=== PATIENT | male | born 1990 | race Caucasian/White ===

== ENCOUNTER 2020-08-24 11:09 | Emergency (ER) | payer MEDICAID, SELFPAY ==
[2020-08-24 11:23] VITALS: BP 151/108; PULSE 116; RESP 18; TEMP 36.7; O2SAT 95; BMI 36.9
--- NOTE | 2020-08-24 11:42 | HMH.EDUTC ---
[facility] [place] Clinical Impression: Bronchitis Sinusitis Qualifiers: Sinusitis location: unspecified location Chronicity: unspecified Qualified Code(s): J32.9 - Chronic sinusitis, unspecified Disposition: Home, Self-Care Condition on Discharge: Good Instructions: Sore Throat, Sinusitis, DI for Sinusitis Additional Instructions: *Monitor Temp, Over the counter Motrin or Tylenol as directed/as needed Tylenol every 4 hours and Motrin every 6 hours (as long as your family doctor has told you that you can take it) for fever or pain. and straight to ER if unable to lower temp less than 101.0 after medication given *Warm salt water gargles may help to soothe the throat *Throat Lozenges *Warm fluids like tea with honey may help to soothe the throat *Sleep elevated *Humidifier/Vaporizer *Flonase 2 sprays in each nostril daily but be aware that it may take 2-3 days before you notice improvement Follow up IMMEDIATELY for new or worsening symptoms or no Noticeable improvement over the next 48-72 hours. 911 for difficulty breathing or swallowing You blood pressure was elevated in [facility] you need to make appointment with your PCP as discussed for further evaluation and treatment Prescriptions: Fluticasone Propionate [Flonase 50mcg nasal spray 16gm] 1 spr NS DAILY #1 bottle Transmission Status: Received by [facility] Azithromycin [Z-Westley 250mg Tab] 250 mg PO DIRECTED #6 tab Transmission Status: Received by [facility] Referrals: Kimani Tavarez MD [Primary Care Provider] - As needed Time of Disposition: 11:47 Medical Decision Making - Paddy Inquiry Pt receiving controlled substance: No Paddy was queried for this patient: No Vital Signs: 08/24/20 11:23 08/24/20 11:56 Temperature 98.1 F 98.1 F Temperature Source Oral Oral Pulse Rate 116 H Pulse Rate [Radial] 116 H Respiratory Rate 18 18 Blood Pressure 151/108 H Blood Pressure [Right Arm] 151/108 H Blood Pressure Mean [Right Arm] 122 Blood Pressure Source Automatic Cuff Blood Pressure Source [Right Arm] Automatic Cuff Blood Pressure Position Sitting Blood Pressure Position [Right Arm] Sitting 02 Sat by Pulse Oximetry 95 Oxygen Delivery Method Room Air Room Air [facility] [place] - General Stated complaint: cough, congestion Time Seen by Provider: 08/24/20 11:43 Mode of Arrival: Ambulatory Source of Information: Patient Limitations: No Limitations Description of Symptoms (Recalled from Triage Doc. by RN): CHEST CONGESTION, COUGH, RUNNY NOSE HEENT Symptoms (Recalled from RN notes): Yes Resp Symptoms (Recalled from RN notes): No Skin Symptoms (Recalled from RN notes): No MS Symptoms (Recalled from RN notes): No Functional Status (Recalled from RN notes): WNL - History of Present Illness Provider Complaint: Patient states that he has been having sore throat, cough, sinus congestion and pressure and feels like it is trying to move into his chest States that he is an everyday smoker and has had bronchitits before and feels like it did when he had it before - Related Data Previous Rx's Medication Instructions Recorded Nabumetone 500 mg PO BID 30 Days #60 tab 04/19/18 predniSONE [Prednisone 10mg Tab 10 mg PO UD DOSE PK 6 Days #1 pack 04/19/18 Dose-Pack] predniSONE [Prednisone 50mg Tab] 50 mg PO DAILY 5 Days #5 tab 08/28/19 Tizanidine HCl [Tizanidine HCl 2 mg PO TID PRN 7 Days #20 tab 08/29/19 2mg] Azithromycin [Z-Westley 250mg Tab] 250 mg PO DIRECTED #6 tab 08/24/20 Fluticasone Propionate [Flonase 1 spr NS DAILY #1 bottle 08/24/20 50mcg nasal spray 16gm] Allergies Allergy/AdvReac Type Severity Reaction Status Date / Time Penicillins [PENICILLINS] Allergy Unknown Verified 08/28/19 21:25 - Worker's Comp Is this a Worker's Comp case?: No [facility] History - Hepatitis A Screen Drug use history?: No High risk sexual behaviors?: No History of sexually transmitted infection?: No Currently employed?: No [employer]
[2020-08-24 11:56] VITALS: BP 151/108; PULSE 116; RESP 18; TEMP 36.7; O2SAT 95
== END 2020-08-24 11:57 | disposition home or self-care (01) ==
PROVIDERS: Emergency Provider Nurse Practitioner; PCP Emergency Medicine
DX: J20.9 Acute bronchitis, unspecified (principal); J32.9 Chronic sinusitis, unspecified; F17.210 Nicotine dependence, cigarettes, uncomplicated; Z88.0 Allergy status to penicillin
CPT/HCPCS: 99201

== ENCOUNTER 2021-01-10 14:49 | Emergency (ER) | payer MEDICAID, SELFPAY ==
[2021-01-10 14:50] VITALS: BP 170/96; PULSE 129; RESP 16; O2SAT 94; BMI 43.0
--- NOTE | 2021-01-10 15:09 | XR_ITS ---
PROCEDURE: XR CHEST 2V CLINICAL HISTORY: COUGH COMPARISON: CR CXR CHEST(2 VIEWS-NOT PORTABLE) from 12/12/2015 FINDINGS: The cardiomediastinal silhouette and pulmonary vascularity are within normal limits. Patchy density is present in the right upper lobe overlying the 3rd rib anteriorly consistent with an area infiltrate. The remaining lungs are clear. No effusions. No evidence of pneumothorax. No acute bony abnormalities. IMPRESSION: Small area of pneumonia in the right upper lobe. Suggest follow-up until clear. Dictated by: Sunil Vázquez MD 01/10/2021 15:26 Sunil Vázquez MD in [place] 01/10/2021 15:26
--- NOTE | 2021-01-10 15:49 | HMH.EDUTC ---
[facility] [place] Disposition Clinical Impression: Pneumonia Qualifiers: Pneumonia type: due to unspecified organism Laterality: right Lung location: upper lobe of lung Qualified Code(s): J18.9 - Pneumonia, unspecified organism Disposition: Home, Self-Care Condition on Discharge: Good Instructions: Pneumonia-Adult, DI for Pneumonia -- Adult, Prednisone, Albuterol Oral Inhalation, Guaifenesin, Azithromycin Additional Instructions: ? Start antibiotic today. Be sure to complete entire prescription even if feeling better ? Monitor temp. Tylenol every 4 hours as needed and / or ibuprofen every 6 hours as needed ( As long as your primary care physician has told you that it ok to take both. For fever/aches/pains ER if no less than 101 despite Tylenol or Motrin ? Humidifier/vaporizer or hot steamy shower ? Inhaler every 4-6 hours as needed like we discussed. If unsure how to use it, ask pharmacist to demonstrate how. Should help open airways and improve cough, wheezing, and shortness of breath ? Mucinex during the day for your cough and cough suppressant only at night. Be sure to drink lots of water. Insurance may not cover a prescriptions for mucinex. Might be cheaper to get 400mg tablets and take 2 tablet in the morning, mid-day and evening with lots of water. *Start steroid tomorrow. Helps with inflammation therefore, cough and wheezing. Follow directions on the package. Reviewed side effects. Patient reports taking them before. Straight to ER if any worsening of shortness of breath or life threatening symptoms You need to follow up with your Family Doctor in 2 weeks or sooner if no improvement for re-evaluation to make sure that Pneumonia is clearing, if you do not have a Family Doctor you was provided with a list of Physicians that is accepting patients and you need to choose one and make appointment you also a Family doctor for further evaluation and treatment of your blood pressure being elevated also Follow up IMMEDIATELY for new or worsening of symptoms OR no noticeable improvement over the next 48-72 hours. 911 immediately for any life threatening symptoms such as chest pain or difficulty breathing Prescriptions: Albuterol Sulfate [Proventil-HFA 90mcg/puff Inh] 1 - 2 puffs IH Q4HP PRN #1 inh PRN Reason: Shortness Of Breath Transmission Status: Pending to [facility] predniSONE [Deltasone 10mg tablet] 10 mg PO BID 5 Days #10 tab Transmission Status: Pending to [facility] guaiFENesin [Mucinex 600mg tablet] 1 - 2 tab PO Q12H PRN #20 tab.er.12h PRN Reason: Congestion Transmission Status: Pending to [facility] Azithromycin [Z-Westley 250mg Tab] 250 mg PO DIRECTED #6 tab Transmission Status: Pending to [facility] Referrals: PCP,No [Primary Care Provider] - As needed Forms: Work/School Release Time of Disposition: 16:08 Medical Decision Making - Paddy Inquiry Pt receiving controlled substance: No Paddy was queried for this patient: No Vital Signs: 01/10/21 14:50 Pulse Rate [Right Brachial] 129 H Respiratory Rate 16 Blood Pressure [Right Arm] 170/96 H Blood Pressure Mean [Right Arm] 120 Blood Pressure Source [Right Arm] Automatic Cuff Blood Pressure Position [Right Arm] Sitting 02 Sat by Pulse Oximetry 94 L Oxygen Delivery Method Room Air Orders (Tests/Meds): ED MEDICATIONS Discontinued Medications Generic Name Dose Route Start Last Admin Trade Name Freq PRN Reason Stop Dose Admin Methylprednisolone Sodium Succinate 125 mg 01/10/21 15:50 01/10/21 15:55 Methylprednisolone Sod Succ 125mg Vial IM 01/10/21 15:51 125 mg ONCE ONE Administration - Radiology Data #1 Image(s): Chest Image Reviewed: Yes I have reviewed radiologist's interpretation Small area of pneumonia in the right upper lobe. Suggest follow-up until clear [facility] [place] HPI - General Stated complaint: cold Time Seen by Provider: 01/10/21 15:50 Mode of Arrival: Ambulatory Source of Information:
[2021-01-10 16:09] VITALS: BP 165/90; PULSE 102; TEMP 36.9; O2SAT 95
[2021-01-10 16:10] VITALS: BP 165/90; PULSE 102; RESP 16; TEMP 36.9; O2SAT 95
== END 2021-01-10 16:17 | disposition home or self-care (01) ==
PROVIDERS: Emergency Provider Nurse Practitioner
DX: J18.9 Pneumonia, unspecified organism (principal); J45.909 Unspecified asthma, uncomplicated; F17.210 Nicotine dependence, cigarettes, uncomplicated
CPT/HCPCS: 71046; 96372; 99202; G0463

== ENCOUNTER → 2021-02-14 13:48 | Outpatient (CLI) | payer MEDICAID, SELFPAY ==
[2021-02-14 14:26] LABS: Basophils # 0.1 K/mm3 (0-0.2); Basophils % 1.1 % (0.1-2.0); Eosinophils # 0.3 K/mm3 (0.0-0.4); Eosinophils % 2.9 % (0.1-12.0); Hematocrit 44.7 % (42.0-52.0); Hemoglobin 14.4 g/dL (14.1-18.0); Lymphocytes # 2.4 K/mm3 (0.7-4.5); Lymphocytes % 23.4 % (10-50); Mean Corpuscular HGB Conc 32.2 g/dL (31.8-35.4); Mean Corpuscular Hemoglobin 28.6 pg (27.0-31.2); Mean Corpuscular Volume 88.9 fl (80-94); Mean Platelet Volume 8.1 fl (7.4-10.4); Monocytes # 0.4 K/mm3 (0.1-1.0); Monocytes % 3.9 % (1.7-9.3); Neutrophils # 7.1 K/mm3 (1.8-7.8); Neutrophils % 68.8 % (37.0-80.0); Platelet Count 359 K/mm3 (142-424); Red Blood Count 5.03 M/mm3 (4.60-6.20); White Blood Count 10.3 K/mm3 (4.8-10.8)
[2021-02-14 16:07] LABS: 25-OH Vitamin D, Total < 12.8 ng/mL (30-100); Blood Urea Nitrogen 8 mg/dl (9-20); Estimated Glomerular Filt Rate 71 ml/min (>60); GFR (African American) 85 ML/MIN (>60)
[2021-02-14 16:08] LABS: Alanine Aminotransferase 34 U/L (12-78); Albumin Level 3.7 g/dl (3.5-5.0); Albumin/Globulin Ratio 1.3 (1.1-1.8); Alkaline Phosphatase 96 U/L (38-126); Aspartate Amino Transferase 33 U/L (17-59); Bilirubin,Total 0.4 mg/dl (0.2-1.3); Calcium 8.8 mg/dl (8.4-10.2); Carbon Dioxide 20 mmol/L (22.0-30.0); Cholesterol 238 mg/dl (140-200); Globulin 2.8 g/dL (1.3-3.2); Glucose 370 mg/dl (74-100); Total Protein,Serum 6.5 g/dl (6.3-8.2)
[2021-02-14 16:09] LABS: Chol/HDL Ratio 9.2 (1-3.5); HDL Cholesterol 26 mg/dl (40-60)
[2021-02-14 16:10] LABS: Anion Gap 18.3 mEq/L (5-15); Chloride 101 mmol/L (98-107); Potassium 4.3 mmoL/L (3.5-5.1); Sodium 135 mmol/L (136-145)
[2021-02-14 16:19] LABS: Direct LDL Cholesterol 41.56 mg/dL (100-129); Triglycerides 1360 mg/dl (30-150)
[2021-02-14 16:29] LABS: T4 (Thyroxine) 6.2 ug/dl (5.53-11.0)
[2021-02-14 16:41] LABS: Thyroid Stimulating Hormone 2.07 uIU/mL (0.465-4.68)
== END ==
PROVIDERS: Visit Provider Nurse Practitioner Family
DX: I10 Essential (primary) hypertension (principal); R42 Dizziness and giddiness; R51.9 Headache, unspecified; E55.9 Vitamin D deficiency, unspecified; J45.20 Mild intermittent asthma, uncomplicated
CPT/HCPCS: 80053; 80061; 82306; 83036; 84436; 84443; 85025

== ENCOUNTER 2021-04-30 14:06 | Emergency (ER) | payer MEDICAID, SELFPAY ==
[2021-04-30 14:14] VITALS: BP 165/77; PULSE 110; RESP 18; TEMP 36.8; O2SAT 98; BMI 39.3
[2021-04-30 14:51] VITALS: BP 165/77; PULSE 109; RESP 16; TEMP 36.8
--- NOTE | 2021-04-30 15:22 | HMH.EDUTC ---
[facility] [place]ression: Right foot pain Right ankle pain Qualifiers: Chronicity: acute Qualified Code(s): M25.571 - Pain in right ankle and joints of right foot Disposition: Home, Self-Care Condition on Discharge: Good Instructions: Gout, DI for Gout Additional Instructions: Rest the extremity, apply ice for 15 minutes as tolerated three or four times per day, Wear the reyna wrap for compression, Elevate the extremity as tolerated while you are resting. Follow up with Dr. Man (podiatry). I put in a referral but you need to call his office and schedule an appointment. Follow up with your regular doctor. GO TO THE ER FOR ANY WORSENING SYMPTOMS Prescriptions: cephALEXin [cephALEXin 500mg capsule] 500 mg PO Q6H 10 Days #40 cap Transmission Status: Received by [facility] predniSONE [Prednisone 20mg Tab] 20 mg PO BID 4 Days #8 tab Transmission Status: Received by [facility] Referrals: Kimani Tavarez MD [Primary Care Provider] - Shayla Man DPM [Staff Physician] - Time of Disposition: 15:35 Medical Decision Making - Medical Records Medical records reviewed: No: I reviewed the patient's medical records. - Paddy Inquiry Pt receiving controlled substance: No Vital Signs: 04/30/21 14:14 04/30/21 14:51 Temperature 98.2 F 98.2 F Temperature Source Oral Pulse Rate 109 H Pulse Rate [Right] 110 H Respiratory Rate 18 16 Blood Pressure 165/77 H Blood Pressure [Right Arm] 165/77 H Blood Pressure Mean [Right Arm] 106 Blood Pressure Source [Right Arm] Automatic Cuff Blood Pressure Position [Right Arm] Sitting 02 Sat by Pulse Oximetry 98 Oxygen Delivery Method Room Air Orders (Tests/Meds): ED MEDICATIONS Discontinued Medications Generic Name Dose Route Start Last Admin Trade Name Freq PRN Reason Stop Dose Admin Ketorolac Tromethamine 60 mg 04/30/21 14:42 04/30/21 14:50 Ketorolac 60mg/2ml Vial IM 04/30/21 14:43 60 mg ONCE ONE Administration Methylprednisolone Sodium Succinate 60 mg 04/30/21 14:44 04/30/21 14:50 Methylprednisolone Sod Succ 125mg Vial IM 04/30/21 14:45 60 mg ONCE ONE Administration Medical Decision Narrative: He refused an x-ray and lab work. He states that he has a history of gout and this feels like his gout symptoms flaring up. [facility] [place] General Stated complaint: rt ankle pain, swollen Time Seen by Provider: 04/30/21 15:23 Mode of Arrival: Wheelchair Source of Information: Patient Limitations: No Limitations Description of Symptoms (Recalled from Triage Doc. by RN): pt states, I think I have gout I have really bad constant pain in my R rob and top of my foot. pain is 10/10. non injury noted. HEENT Symptoms (Recalled from RN notes): No Resp Symptoms (Recalled from RN notes): No Skin Symptoms (Recalled from RN notes): No MS Symptoms (Recalled from RN notes): Yes (R ankle and foot pain. no injury) Functional Status (Recalled from RN notes): na - History of Present Illness Provider Complaint: He c/o right ankle pain for the past 2 days. He denies any injury. He does have a history of getting what he describes as gout, but he has never been officially diagnosed with gout. He denies any other joint pain or discomfort. He denies any fever or chills. - Related Data Previous Rx's Medication Instructions Recorded aspirin 81 mg tablet,delayed 81 mg PO DAILY #30 tab 02/19/21 release atorvastatin 20 mg tablet 20 mg PO DAILY #30 tab 02/19/21 blood sugar diagnostic See Rx Instructions .ROUTE 02/19/21 .MEDSUPPLY #100 each blood-glucose meter See Rx Instructions .ROUTE 02/19/21 .MEDSUPPLY #1 each cholecalciferol (vitamin D3) 1,250 1,250 mcg PO WEEKLY #7 tab 02/19/21 mcg (50,000 unit) tablet cholecalciferol (vitamin D3) 50 50 mcg PO DAILY 30 Days #30 cap 02/19/21 mcg (2,000 unit) capsule lancets 30 gauge and blood glucose See Rx Instructions .ROUTE 02/19/21 strips combo pack .MEDSUPPL
== END 2021-04-30 15:47 | disposition home or self-care (01) ==
PROVIDERS: Emergency Provider Nurse Practitioner Family; PCP Emergency Medicine
DX: M10.071 Idiopathic gout, right ankle and foot (principal); M25.571 Pain in right ankle and joints of right foot; E11.9 Type 2 diabetes mellitus without complications; I10 Essential (primary) hypertension; Z88.0 Allergy status to penicillin
CPT/HCPCS: 96372; 99202; G0463

== ENCOUNTER 2021-05-23 18:42 | Emergency (ER) | payer MEDICAID, SELFPAY ==
[2021-05-23 19:27] VITALS: BP 123/83; PULSE 121; RESP 20; TEMP 36.8; O2SAT 95; BMI 36.9
[2021-05-23 20:10] VITALS: BP 135/84; PULSE 119; RESP 18; TEMP 36.8; O2SAT 97; BMI 38.4
[2021-05-23 20:32] LABS: Basophils # 0.1 K/mm3 (0-0.2); Basophils % 0.9 % (0.1-2.0); Eosinophils # 0.3 K/mm3 (0.0-0.4); Eosinophils % 2.3 % (0.1-12.0); Hemoglobin 13.1 g/dL (14.1-18.0); Lymphocytes % 20.7 % (10-50); Mean Corpuscular HGB Conc 34.6 g/dL (31.8-35.4); Mean Corpuscular Hemoglobin 29.1 pg (27.0-31.2); Mean Corpuscular Volume 84.1 fl (80-94); Mean Platelet Volume 7.3 fl (7.4-10.4); Monocytes # 0.5 K/mm3 (0.1-1.0); Monocytes % 3.2 % (1.7-9.3); Neutrophils # 10.5 K/mm3 (1.8-7.8); Platelet Count 426 K/mm3 (142-424); Red Blood Count 4.52 M/mm3 (4.60-6.20); Red Cell Distribution Width 14.2 % (11.5-17.5); White Blood Count 14.4 K/mm3 (4.8-10.8)
[2021-05-23 20:49] LABS: Alanine Aminotransferase 28 U/L (12-78); Albumin Level 4.3 g/dl (3.5-5.0); Albumin/Globulin Ratio 1.3 (1.1-1.8); Alkaline Phosphatase 74 U/L (38-126); Anion Gap 14.6 mEq/L (5-15); Aspartate Amino Transferase 27 U/L (17-59); Bilirubin,Total 0.4 mg/dl (0.2-1.3); Blood Urea Nitrogen 14 mg/dl (9-20); Calcium 9.1 mg/dl (8.4-10.2); Carbon Dioxide 29 mmol/L (22.0-30.0); Chloride 99 mmol/L (98-107); Creatinine Clearance Estimated 118 mL/min (50-200); Estimated Glomerular Filt Rate 54 ml/min (>60); GFR (African American) 66 ML/MIN (>60); Globulin 3.3 g/dL (1.3-3.2); Glucose 193 mg/dl (74-100); Potassium 3.6 mmoL/L (3.5-5.1); Sodium 139 mmol/L (136-145); Total Protein,Serum 7.6 g/dl (6.3-8.2)
[2021-05-23 20:55] LABS: C-Reactive Protein 43.1 mg/L (0-4)
[2021-05-23 21:08] LABS: Procalcitonin 0.171 ng/mL (0.0-2.0)
[2021-05-23 21:19] LABS: Lactic Acid 1.5 mmol/L (0.7-2.1)
[2021-05-23 21:25] LABS: Erythrocyte Sedimentation Rate > 140 mm/hr (0-15)
--- NOTE | 2021-05-23 21:55 | HMH.EDSKAF ---
ED Disposition Clinical Impression: Abscess of skin or subcutaneous tissue Qualifiers: Site of cutaneous abscess: extremity Site of cutaneous abscess of extremity: lower extremity Laterality: left Qualified Code(s): L02.416 - Cutaneous abscess of left lower limb Disposition: Home, Self-Care Condition on Discharge: Good Instructions: DI for Skin Abscess Additional Instructions: warm compresses and use meds Prescriptions: clindamycin HCL [Clindamycin HCl] 300 mg PO TID #30 cap Transmission Status: Pending to [facility] levoFLOXacin [Levaquin 500mg tab] 500 mg PO DAILY #7 tab Transmission Status: Pending to [facility] Referrals: Kimani Tavarez MD [Primary Care Provider] - - Critical Care Critical Care Time: No Attestation: On 05/23/21, the high probability of a clinically significant, sudden or life threatening deterioration of the following system(s) required my full and direct attention, intervention and personal management. The time I documented below is in addition to time spent performing reported procedures but includes the following listed in this critical care notation. Medical Decision Making - Medical Records Medical records reviewed: Yes: I reviewed the patient's medical records. - Paddy Inquiry Pt receiving controlled substance: No Vital Signs: 05/23/21 19:27 05/23/21 20:10 Temperature 98.3 F 98.3 F Temperature Source Oral Oral Pulse Rate [Left] 121 H 119 H Respiratory Rate 20 18 Blood Pressure [Right Arm] 123/83 135/84 Blood Pressure Mean [Right Arm] 96 101 02 Sat by Pulse Oximetry 95 97 Oxygen Delivery Method Room Air - Lab Data Lab results reviewed: Yes: I reviewed the patient's lab results. Lab Results 05/23/21 20:14: WBC 14.4 H, RBC 4.52 L, Hgb 13.1 L, Hct 38.0 L, MCV 84.1, MCH 29.1, MCHC 34.6, RDW 14.2, Plt Count 426 H, MPV 7.3 L, Neut % (Auto) 73.0, Lymph % (Auto) 20.7, [place] % (Auto) 3.2, Eos % (Auto) 2.3, Baso % (Auto) 0.9, Neut # (Auto) 10.5 H, Lymph # (Auto) 3.0, [place] # (Auto) 0.5, Eos # (Auto) 0.3, Baso # (Auto) 0.1, ESR > 140 H 05/23/21 20:14: Sodium 139, Potassium 3.6, Chloride 99, Carbon Dioxide 29, Anion Gap 14.6, BUN 14, Creatinine 1.50 H, Estimated Creat Clear 118, Estimated GFR 54 L, Est GFR ( Amer) 66, Glucose 193 H, Calcium 9.1, Total Bilirubin 0.4, AST 27, ALT 28, Alkaline Phosphatase 74, C-Reactive Protein 43.1 H, Total Protein 7.6, Albumin 4.3, Globulin 3.3 H, Albumin/Globulin Ratio 1.3, Procalcitonin 0.171 05/23/21 21:00: Lactate 1.5 Result diagrams: 05/23/21 20:14 05/23/21 20:14 Orders (Tests/Meds): ORDERS Category Date Time Status Rapid PCR Covid and Flu A/B Stat Lab 05/23/21 20:53 Ordered Blood Culture Stat Micro 05/23/21 21:00 Received Wound Culture and Gram Stain Stat Micro 05/23/21 20:17 Ordered Medical Decision Narrative: pt declined admit at this time for abscess lt post thigh Skin/Abscess/FB HPI - General Chief complaint: Skin/Abscess/Foreign Body Stated complaint: possible bite or boil on L leg Time Seen by Provider: 05/23/21 21:55 Mode of Arrival: Ambulatory Source of Information: Patient Limitations: No Limitations Description of Symptoms (Recalled from ER Triage Doc. by RN): pt c/o of an abcess on his upper inner thigh on the L leg. he has been battling this for about a week. it has been draining a brown pus color. he says it started out the size of a quarter now wraps around the base of his buttocks and is about four inches long. - History of Present Illness MD complaint: abscess/boil Onset (ago): day(s) Tetanus up to date: unsure Location: LLE Severity: moderate Associated symptoms: denies other symptoms Treatments prior to arrival: none - Related Data Previous Rx's Medication Instructions Recorded aspirin 81 mg tablet,delayed 81 mg PO DAILY #30 tab 02/19/21 release atorvastatin 20 mg tablet 20 mg PO DAILY #30 tab 02/19/21 blood sugar diagnostic See Rx Instructions .ROU
[2021-05-23 22:09] VITALS: BP 124/73; PULSE 111; RESP 18; TEMP 36.8; O2SAT 97
== END 2021-05-23 22:11 | disposition home or self-care (01) ==
LOC: UTC 18:46 → ER 19:59
PROVIDERS: Emergency Provider Emergency Medicine; PCP Emergency Medicine
DX: L02.416 Cutaneous abscess of left lower limb (principal); E11.65 Type 2 diabetes mellitus with hyperglycemia; I10 Essential (primary) hypertension; F17.210 Nicotine dependence, cigarettes, uncomplicated
CPT/HCPCS: 80053; 83605; 84145; 85025; 85651; 86140; 87040; 99283

== ENCOUNTER 2021-10-05 03:08 | Inpatient (IN) | payer MEDICAID, SELFPAY ==
[2021-10-05] VITALS (11 sets, daily range): BP systolic 155–203; BP diastolic 82–116; PULSE 68–106; RESP 16–24; TEMP 36.6–37; O2SAT 91–98; BMI 38.7; BMI 38.6
--- NOTE | 2021-10-05 03:21 | CT_ITS ---
PROCEDURE INFORMATION: Exam: CT Abdomen And Pelvis With Contrast Exam date and time: 10/05/2021 3:21 AM Age: 31 years old Clinical indication: Abdominal pain; Additional info: Abd pain TECHNIQUE: Imaging protocol: Computed tomography of the abdomen and pelvis with contrast. Radiation optimization: All CT scans at this facility use at least one of these dose optimization techniques: automated exposure control; mA and/or kV adjustment per patient size (includes targeted exams where dose is matched to clinical indication); or iterative reconstruction. Contrast material: ISOVUE; Contrast volume: 75 ml; Contrast route: IV; COMPARISON: No relevant prior studies available. FINDINGS: Lungs: Minimal atelectasis/scarring. Liver: Mildly enlarged. Fatty infiltration. Gallbladder and bile ducts: No calcified stones. No ductal dilation. Pancreas: Moderate stranding/fluid about pancreas. Mild heterogeneity of parenchyma. No ductal dilation. No discrete peripancreatic collection. Spleen: Mildly enlarged. Few calcifications. Adrenal glands: No mass. Kidneys and ureters: Moderate scarring/atrophy of LEFT kidney. No significant hydronephrosis. Stomach and bowel: Segmental areas of probable underdistention of colon. No definite mural thickening. No associated inflammatory stranding. No obstruction. Appendix: No findings to suggest appendicitis. Intraperitoneal space: Trace free fluid within pelvis. No free air. Vasculature: Patent splenic artery and vein. No aneurysm. Lymph nodes: No pathologically enlarged lymph nodes. Urinary bladder: Unremarkable. Reproductive: Unremarkable as visualized. Bones/joints: No acute fracture. Soft tissues: Tiny umbilical hernia containing fat. IMPRESSION: Acute pancreatitis.
[2021-10-05 03:27] LABS: Microscopic, Urine URINE MICROSCOPIC (MICROSCOPIC)
[2021-10-05 03:28] LABS: Appearance,Urine CLEAR (Clear); Bilirubin,Urine Negative (Negative); Blood, Urine 2+ (Negative); Color,Urine YELLOW (Yellow); Glucose,Urine (UA) TRACE (Negative); Ketones,Urine Negative (Negative); Leukocyte Esterase,Urine Negative (Negative); Nitrate,Urine Negative (Negative); Protein,Urine 3+ (Negative); Specific Gravity, Urine >= 1.030 (1.005-1.030); Urobilinogen,Urine 0.2 EU/dl (0.2)
[2021-10-05 03:28] LABS: Basophils # 0.2 K/mm3 (0-0.2); Basophils % 0.8 % (0.1-2.0); Eosinophils # 0.3 K/mm3 (0.0-0.4); Eosinophils % 1.1 % (0.1-12.0); Hematocrit 46.5 % (42.0-52.0); Hemoglobin 15.4 g/dL (14.1-18.0); Lymphocytes # 2.3 K/mm3 (0.7-4.5); Lymphocytes % 9.1 % (10-50); Mean Corpuscular HGB Conc 33.1 g/dL (31.8-35.4); Mean Corpuscular Volume 87.5 fl (80-94); Mean Platelet Volume 8.1 fl (7.4-10.4); Monocytes # 0.9 K/mm3 (0.1-1.0); Monocytes % 3.6 % (1.7-9.3); Neutrophils # 21.3 K/mm3 (1.8-7.8); Neutrophils % 85.5 % (37.0-80.0); Platelet Count 566 K/mm3 (142-424); Red Blood Count 5.31 M/mm3 (4.60-6.20); Red Cell Distribution Width 14.7 % (11.5-17.5); White Blood Count 24.9 K/mm3 (4.8-10.8)
[2021-10-05 03:33] LABS: MANUAL DIFFERENTIAL MANUAL DIFFERENTIAL (MANUAL DIFF)
[2021-10-05 03:37] LABS: Alanine Aminotransferase 32 U/L (12-78); Albumin Level 4.1 g/dl (3.5-5.0); Albumin/Globulin Ratio 1.3 (1.1-1.8); Alkaline Phosphatase 67 U/L (38-126); Amylase 640 U/L (30-110); Aspartate Amino Transferase 58 U/L (17-59); Bilirubin,Total 0.4 mg/dl (0.2-1.3); Blood Urea Nitrogen 19 mg/dl (9-20); Calcium 9.2 mg/dl (8.4-10.2); Carbon Dioxide 25 mmol/L (22.0-30.0); Chloride 100 mmol/L (98-107); Creatinine Clearance Estimated 108 mL/min (50-200); Estimated Glomerular Filt Rate 47 ml/min (>60); GFR (African American) 57 ML/MIN (>60); Globulin 3.1 g/dL (1.3-3.2); Glucose 338 mg/dl (74-100); Sodium 133 mmol/L (136-145); Total Protein,Serum 7.2 g/dl (6.3-8.2)
[2021-10-05 03:40] LABS: Bacteria,Urine 1+ /lpf; Mucus,Urine Trace /lpf
[2021-10-05 03:43] LABS: C-Reactive Protein 14.5 mg/L (0-4)
[2021-10-05 03:56] LABS: Procalcitonin 0.231 ng/mL (0.0-2.0)
[2021-10-05 04:05] LABS: Hemoglobin A1C 9.3 % (4.0-6.0)
[2021-10-05 04:05] LABS: Lactic Acid 2.1 mmol/L (0.7-2.1)
[2021-10-05 04:12] LABS: Lymphocytes % 12 % (10-50); Monocytes % 4 % (2-9); Neutrophils % 84 % (42-76); Platelet Estimate Normal; RBC Morphology Normal; Total Cells Counted 100
[2021-10-05 04:17] LABS: Erythrocyte Sedimentation Rate 17 mm/hr (0-15)
--- NOTE | 2021-10-05 04:37 | HMH.EDNVD ---
ED Disposition Clinical Impression: Obesity (BMI 30-39.9), Tobacco use Pancreatitis Qualifiers: Chronicity: acute Pancreatitis type: unspecified pancreatitis type Acute pancreatitis complication: no infection or necrosis Qualified Code(s): K85.90 - Acute pancreatitis without necrosis or infection, unspecified Diabetes mellitus Qualifiers: Diabetes mellitus type: type 2 Diabetes mellitus assisted insulin use: unspecified assisted insulin use status Diabetes mellitus complication status: with other specified complication Qualified Code(s): E11.69 - Type 2 diabetes mellitus with other specified complication Disposition: Admitted As Inpatient Condition on Discharge: Good Instructions: DI for Acute Abdominal Pain Referrals: Kimani Tavarez MD [Primary Care Provider] - - Critical Care Critical Care Time: No Attestation: On 10/05/21, the high probability of a clinically significant, sudden or life threatening deterioration of the following system(s) required my full and direct attention, intervention and personal management. The time I documented below is in addition to time spent performing reported procedures but includes the following listed in this critical care notation. Medical Decision Making - Medical Records Medical records reviewed: Yes: I reviewed the patient's medical records. - Paddy Inquiry Pt receiving controlled substance: No Vital Signs: 10/05/21 03:09 10/05/21 04:04 10/05/21 04:31 Temperature 98.2 F Temperature Source Oral Pulse Rate 78 83 Pulse Rate [Right] 84 Respiratory Rate 18 Blood Pressure 203/97 H 187/102 H Blood Pressure [Right Arm] 184/113 H Blood Pressure Mean 148 149 Blood Pressure Mean [Right Arm] 136 Blood Pressure Source [Right Arm] Automatic Cuff 02 Sat by Pulse Oximetry 98 95 95 Oxygen Delivery Method Room Air Room Air Room Air - Lab Data Lab results reviewed: Yes: I reviewed the patient's lab results. Lab Results 10/05/21 03:13: Urine Color Yellow, Urine Appearance Clear, Urine pH 6.0, Ur Specific [place] >= 1.030, Urine Protein 3+, Urine Glucose (UA) Trace, Urine Ketones Negative, Urine Blood 2+, Urine Nitrate Negative, Urine Bilirubin Negative, Urine Urobilinogen 0.2, Ur Leukocyte Esterase Negative, Urine WBC 3-5, Urine Bacteria 1+, Urine Mucus Trace 10/05/21 03:13: Urine Opiates Screen Negative, Urine Methadone Screen Negative, Ur Barbituates Screen Negative, Ur Phencyclidine Scrn Negative, Ur Amphetamines Screen Negative, U Benzodiazepines Scrn Negative, Urine Cocaine Screen Negative, U Marijuana (THC) Screen Negative 10/05/21 03:20: WBC 24.9 H*, RBC 5.31, Hgb 15.4, Hct 46.5, MCV 87.5, MCH 29.0, MCHC 33.1, RDW 14.7, Plt Count 566 H, MPV 8.1, Neut % (Auto) 85.5 H, Lymph % (Auto) 9.1 L, [place] % (Auto) 3.6, Eos % (Auto) 1.1, Baso % (Auto) 0.8, Neut # (Auto) 21.3 H, Lymph # (Auto) 2.3, Hart[place] # (Auto) 0.9, Eos # (Auto) 0.3, Baso # (Auto) 0.2, Total Counted 100, Neutrophils % (Manual) 84 H, Lymphocytes % (Manual) 12, Monocytes % (Manual) 4, Platelet Estimate Normal, RBC Morphology Normal, ESR 17 H 10/05/21 03:20: Sodium 133 L, Potassium 4.0, Chloride 100, Carbon Dioxide 25, Anion Gap 12.0, BUN 19, Creatinine 1.70 H, Estimated Creat Clear 108, Estimated GFR 47 L, Est GFR ( Amer) 57 L, Glucose 338 H, Calcium 9.2, Total Bilirubin 0.4, AST 58, ALT 32, Alkaline Phosphatase 67, C-Reactive Protein 14.5 H, Total Protein 7.2, Albumin 4.1, Globulin 3.1, Albumin/Globulin Ratio 1.3, Amylase 640 H*, Lipase 80917 H, Procalcitonin 0.231 10/05/21 03:20: Hemoglobin A1c 9.3 H 10/05/21 03:20: Triglycerides 726 H, Cholesterol 178, LDL Cholesterol Direct 56.33 L, HDL Cholesterol 29 L, Cholesterol/HDL Ratio 6.1 H 10/05/21 03:47: Lactate 2.1 Result diagrams: 10/05/21 03:20 10/05/21 03:20 Orders (Tests/Meds): ED MEDICATIONS Generic Name Dose Route Start Last Admin Trade Name Freq PRN Reason Stop Dose Admin Sodium Chloride 1,000 mls @ 999 mls/hr 10/05/21 03:30 10/05/21
[2021-10-05 04:46] LABS: Lipase 10044 U/L (23-300)
[2021-10-05 04:55] LABS: Coronavirus 19, PCR Not Detected (NotDetected); Influenza A, PCR Not Detected (NotDetected); Influenza B, PCR Not Detected (NotDetected)
--- NOTE | 2021-10-05 04:56 | PC.NURSE ---
Radiology s/w vrad for read time
[2021-10-05 05:06] LABS: Cholesterol 178 mg/dl (140-200)
[2021-10-05 05:07] LABS: Chol/HDL Ratio 6.1 (1-3.5); HDL Cholesterol 29 mg/dl (40-60)
[2021-10-05 05:18] LABS: Amphetamine/Metha Screen,Urine Negative ng/ml (<1000)
[2021-10-05 05:18] LABS: Direct LDL Cholesterol 56.33 mg/dL (100-129)
[2021-10-05 05:19] LABS: Barbiturates Screen,Urine Negative ng/ml (<200); Benzodiazepines Screen,Urine Negative ng/ml (<200)
[2021-10-05 05:20] LABS: Cannabinoid Screen,Urine Negative ng/ml (<50)
[2021-10-05 05:21] LABS: Cocaine Screen,Urine Negative ng/ml (<300); Methadone Screen,Urine Negative ng/ml (<300)
[2021-10-05 05:22] LABS: Opiate Screen,Urine Negative ng/ml (<300)
[2021-10-05 05:23] LABS: Phencyclidine Screen,Urine Negative ng/ml (<25)
[2021-10-05 05:35] LABS: Triglycerides 726 mg/dl (30-150)
--- NOTE | 2021-10-05 06:47 | PC.NURSE ---
report given to Tere diaz RN @ this time
--- NOTE | 2021-10-05 07:29 | HMH.PHAINT ---
MEDICATION RECONCILIATION COMPLETED ON PATIENT USING EXTERNAL FILL HISTORY FROM PHARMACY. -ANNA CARR, DEANNAD
--- NOTE | 2021-10-05 07:31 | P.CONPHA_ITS ---
[facility] Pharmacy VTE Monitoring - Patient Demographics Admission date: 10/05/21 Report Date: 10/05/21 Time: 07:31 Allergies/Adverse Reactions: Patient Allergies Penicillins [PENICILLINS] Allergy (Unknown, Verified 05/23/21 19:39) Height: 1.78 m Weight: 122.47 kg Patient Problems: Current Active Problems Pancreatitis (Acute) Obesity (BMI 30-39.9) (Acute) Tobacco use (Acute) Diabetes (Chronic) - VTE Risk Labs: VTE Related Lab Results Hgb 15.4 g/dL (14.1-18.0) 10/05/21 03:20 Hct 46.5 % (42.0-52.0) 10/05/21 03:20 Plt Count 566 K/mm3 (142-424) H 10/05/21 03:20 BUN 19 mg/dl (9-20) 10/05/21 03:20 Creatinine 1.70 mg/dl (0.66-1.25) H 10/05/21 03:20 Estimated Creat Clear 108 mL/min (50-200) 10/05/21 03:20 - Prophylaxis VTE Prophylaxis Ordered?: Yes Types of VTE Prophylaxis: TEDS Knee High Location of Applied Device: Bilateral Lower Extremeties
[2021-10-05 07:55] LABS: Reflex Lactic Add Lactic Reflex
--- NOTE | 2021-10-05 08:00 | US_ITS ---
PROCEDURE: US GALLBLADDER CLINICAL INDICATION: abd pain COMPARISON: CT CT ABDOMEN PELVIS W CON from 10/05/2021 FINDINGS: Exam somewhat limited secondary to patient's body habitus. Pancreas: Pancreas is not well delineated Liver: Diffuse fatty liver.. There is appropriate direction of blood flow within a non dilated portal vein. Right kidney: Unremarkable appearing. No hydronephrosis. Gallbladder: No definite gallstones. No gallbladder wall thickening, pericholecystic fluid, or biliary dilatation. Common bile duct is 3 mm. IMPRESSION: No obvious gallstones. The pancreas is not well delineated. There is diffuse fatty liver involvement Dictated by: Sunil Vázquez MD 10/05/2021 09:05 Sunil Vázquez MD in [place] 10/05/2021 09:05
--- NOTE | 2021-10-05 08:31 | HMH.GSCON ---
*Admission Date: 10/05/21 *Reason for consult:: Pancreatitis *History of present illness: 31-year-old male with history of diabetes and asthma. He states that several days ago he had developed some epigastric pain. However it became quite severe yesterday. He was seen and evaluated in the emergency department. He was found to have elevated amylase and lipase. CT scan revealed findings of radiographic pancreatitis. Gallbladder revealed no calcified gallstones or dilated bile ducts. He was admitted for inpatient management. Surgical consultation was obtained. Review of Systems - Review of Systems Review of systems:: pertinent systems reviewed and negative unless documented below - *Neurologic Denies localized weakness, Denies seizure-like activity [facility] History I have reviewed the patient's past medical history: Yes Medical History: Reports:: Asthma, Diabetes Mellitus Type 2, Hypertension Denies:: Cancer, Diabetes Mellitus Type 1, MRSA *Have you ever received a pneumonia vaccine?: No *Have you received a flu vaccine this season?: No Other Surgeries: Yes: Hernia Repair Amputation: No - *Social History Smoking Status: Current every day smoker Tobacco Type: cigarettes, smokeless tobacco # Packs/Day (cigarettes): 1 Alcohol Intake: current Alcohol Intake Frequency:: holidays/special occasions only Substance Use Type: denies use *Occupational Status:: unemployed Household Members: spouse *Travel in the last 8 weeks: Outside the [facility] Family Hx:: Diabetes Meds Home Medications Medication Instructions Recorded Confirmed Type Albuterol Sulfate [Albuterol 1 puff IH Q4HP PRN 10/05/21 10/05/21 History Sulfate Hfa] Aspirin [Low Dose Aspirin EC] 81 mg PO DAILY 10/05/21 10/05/21 History Atorvastatin Calcium [Lipitor 20mg 20 mg PO DAILY 10/05/21 10/05/21 History Tab] Cholecalciferol (Vitamin D3) 50 mcg PO DAILY 10/05/21 10/05/21 History [Vitamin D3] Loratadine 10 mg PO DAILY 10/05/21 10/05/21 History Metformin HCl 500 mg PO BIDWMEAL 10/05/21 10/05/21 History hydroCHLOROthiazide [HCTZ 25mg 25 mg PO DAILY 10/05/21 10/05/21 History tab] lisinopriL [Lisinopril] 10 mg PO DAILY 10/05/21 10/05/21 History Allergies Allergy/AdvReac Type Severity Reaction Status Date / Time Penicillins [PENICILLINS] Allergy Unknown Verified 05/23/21 19:39 Exam Vital signs and Labs for Last 24 Hours: Temp Pulse Resp BP Pulse Ox 98.2 F 85 18 165/98 H 96 10/05/21 07:52 10/05/21 07:52 10/05/21 07:52 10/05/21 07:52 10/05/21 07:52 Laboratory Results - last 24 hr 10/05/21 03:13: Urine Color Yellow, Urine Appearance Clear, Urine pH 6.0, Ur Specific [place] >= 1.030, Urine Protein 3+, Urine Glucose (UA) Trace, Urine Ketones Negative, Urine Blood 2+, Urine Nitrate Negative, Urine Bilirubin Negative, Urine Urobilinogen 0.2, Ur Leukocyte Esterase Negative, Urine WBC 3-5, Urine Bacteria 1+, Urine Mucus Trace 10/05/21 03:13: Urine Opiates Screen Negative, Urine Methadone Screen Negative, Ur Barbituates Screen Negative, Ur Phencyclidine Scrn Negative, Ur Amphetamines Screen Negative, U Benzodiazepines Scrn Negative, Urine Cocaine Screen Negative, U Marijuana (THC) Screen Negative 10/05/21 03:20: WBC 24.9 H*, RBC 5.31, Hgb 15.4, Hct 46.5, MCV 87.5, MCH 29.0, MCHC 33.1, RDW 14.7, Plt Count 566 H, MPV 8.1, Neut % (Auto) 85.5 H, Lymph % (Auto) 9.1 L, [place] % (Auto) 3.6, Eos % (Auto) 1.1, Baso % (Auto) 0.8, Neut # (Auto) 21.3 H, Lymph # (Auto) 2.3, [place] # (Auto) 0.9, Eos # (Auto) 0.3, Baso # (Auto) 0.2, Total Counted 100, Neutrophils % (Manual) 84 H, Lymphocytes % (Manual) 12, Monocytes % (Manual) 4, Platelet Estimate Normal, RBC Morphology Normal, ESR 17 H 10/05/21 03:20: Sodium 133 L, Potassium 4.0, Chloride 100, Carbon Dioxide 25, Anion Gap 12.0, BUN 19, Creatinine 1.70 H, Estimated Creat Clear 108, Estimated GFR 47 L, Est GFR ( Amer) 57 L, Glucose 338 H, Calcium 9.2, Total Bilirubin 0.4, AST 58, ALT 32,
[2021-10-05 08:41] LABS: Lactic Acid Follow Up (RFLX 1) 2.2 mmol/L (0.7-2.1)
[2021-10-05 10:22] LABS: Reflex Lactic (2 hrs) Add Lactic Reflex
[2021-10-05 10:58] LABS: Lactic Acid Follow up (RFLX 2) 1.9 mmol/L (0.7-2.1)
--- NOTE | 2021-10-05 11:11 | HMH.HP ---
*Admission Date: 10/05/21 *Chief complaint: abd pain *History of present illness: this patient presented to the ed with abd pain and nausea -c/o upper ABD pain that started ~ 3 hr ago with nausea and vomting. States this happened a few days ago but went away and then came back worse . Denies any fever, chills, diarrhea or respiratory issues. Tender to RUQ and RLQ abd.- pt with acute pancreatitis and was admitted for ivf and pain control and surg eval [facility] History I have reviewed the patient's past medical history: Yes Medical History: Reports:: Asthma, Diabetes Mellitus Type 2, Hypertension Denies:: Cancer, Diabetes Mellitus Type 1, MRSA *Have you ever received a pneumonia vaccine?: No *Have you received a flu vaccine this season?: No Other Surgeries: Yes: Hernia Repair Amputation: No - *Social History Smoking Status: Current every day smoker Tobacco Type: cigarettes, smokeless tobacco # Packs/Day (cigarettes): 1 Alcohol Intake: current Alcohol Intake Frequency:: holidays/special occasions only Substance Use Type: denies use *Occupational Status:: unemployed Household Members: spouse *Travel in the last 8 weeks: Outside the [facility] Family Hx:: Diabetes Review of Systems - Review of Systems Review of systems:: pertinent systems reviewed and negative unless documented below - Constitutional Denies fever(s) - Eyes Denies change in vision - ENT Denies sore throat - *Cardiovascular Denies chest pain at rest - *Gastrointestinal Reports abdominal pain, Reports nausea, Reports vomiting - *Genitourinary Denies blood in urine - *Musculoskeletal Denies joint pain - Integumentary/Breasts Denies rash - *Neurologic Denies localized weakness, Denies seizure-like activity - Psychiatric Denies depression Meds Home Medications Medication Instructions Recorded Confirmed Type Albuterol Sulfate [Albuterol 1 puff IH Q4HP PRN 10/05/21 10/05/21 History Sulfate Hfa] Aspirin [Low Dose Aspirin EC] 81 mg PO DAILY 10/05/21 10/05/21 History Atorvastatin Calcium [Lipitor 20mg 20 mg PO DAILY 10/05/21 10/05/21 History Tab] Cholecalciferol (Vitamin D3) 50 mcg PO DAILY 10/05/21 10/05/21 History [Vitamin D3] Loratadine 10 mg PO DAILY 10/05/21 10/05/21 History Metformin HCl 500 mg PO BIDWMEAL 10/05/21 10/05/21 History hydroCHLOROthiazide [HCTZ 25mg 25 mg PO DAILY 10/05/21 10/05/21 History tab] lisinopriL [Lisinopril] 10 mg PO DAILY 10/05/21 10/05/21 History Allergies Allergy/AdvReac Type Severity Reaction Status Date / Time Penicillins [PENICILLINS] Allergy Unknown Verified 05/23/21 19:39 Exam Vital signs and Labs for Last 24 Hours: Temp Pulse Resp BP Pulse Ox 98.2 F 96 H 18 165/98 H 91 L 10/05/21 08:00 10/05/21 08:00 10/05/21 08:00 10/05/21 08:00 10/05/21 08:00 Laboratory Results - last 24 hr 10/05/21 03:13: Urine Color Yellow, Urine Appearance Clear, Urine pH 6.0, Ur Specific [place] >= 1.030, Urine Protein 3+, Urine Glucose (UA) Trace, Urine Ketones Negative, Urine Blood 2+, Urine Nitrate Negative, Urine Bilirubin Negative, Urine Urobilinogen 0.2, Ur Leukocyte Esterase Negative, Urine WBC 3-5, Urine Bacteria 1+, Urine Mucus Trace 10/05/21 03:13: Urine Opiates Screen Negative, Urine Methadone Screen Negative, Ur Barbituates Screen Negative, Ur Phencyclidine Scrn Negative, Ur Amphetamines Screen Negative, U Benzodiazepines Scrn Negative, Urine Cocaine Screen Negative, U Marijuana (THC) Screen Negative 10/05/21 03:20: WBC 24.9 H*, RBC 5.31, Hgb 15.4, Hct 46.5, MCV 87.5, MCH 29.0, MCHC 33.1, RDW 14.7, Plt Count 566 H, MPV 8.1, Neut % (Auto) 85.5 H, Lymph % (Auto) 9.1 L, [place] % (Auto) 3.6, Eos % (Auto) 1.1, Baso % (Auto) 0.8, Neut # (Auto) 21.3 H, Lymph # (Auto) 2.3, [place] # (Auto) 0.9, Eos # (Auto) 0.3, Baso # (Auto) 0.2, Total Counted 100, Neutrophils % (Manual) 84 H, Lymphocytes % (Manual) 12, Monocytes % (Manual) 4, Platelet Estimate Normal, RBC Morphology Normal,
--- NOTE | 2021-10-05 11:32 | HMH.GSPN ---
Subjective Narrative: Patient resting comfortably this afternoon. Progress Note: A&P Assessment and Plan for All Diagnoses:: Ultrasound reveals no evidence of any gallstones. Etiology appears nonbiliary at this time. Possible etiology could be hypertriglyceridemia. Recommend medical management of apparent nonbiliary pancreatitis. Exam Vital signs and Labs for Last 24 Hours: Temp Pulse Resp BP Pulse Ox 98.2 F 96 H 18 165/98 H 91 L 10/05/21 08:00 10/05/21 08:00 10/05/21 08:00 10/05/21 08:00 10/05/21 08:00 Laboratory Results - last 24 hr 10/05/21 03:13: Urine Color Yellow, Urine Appearance Clear, Urine pH 6.0, Ur Specific [place] >= 1.030, Urine Protein 3+, Urine Glucose (UA) Trace, Urine Ketones Negative, Urine Blood 2+, Urine Nitrate Negative, Urine Bilirubin Negative, Urine Urobilinogen 0.2, Ur Leukocyte Esterase Negative, Urine WBC 3-5, Urine Bacteria 1+, Urine Mucus Trace 10/05/21 03:13: Urine Opiates Screen Negative, Urine Methadone Screen Negative, Ur Barbituates Screen Negative, Ur Phencyclidine Scrn Negative, Ur Amphetamines Screen Negative, U Benzodiazepines Scrn Negative, Urine Cocaine Screen Negative, U Marijuana (THC) Screen Negative 10/05/21 03:20: WBC 24.9 H*, RBC 5.31, Hgb 15.4, Hct 46.5, MCV 87.5, MCH 29.0, MCHC 33.1, RDW 14.7, Plt Count 566 H, MPV 8.1, Neut % (Auto) 85.5 H, Lymph % (Auto) 9.1 L, [place] % (Auto) 3.6, Eos % (Auto) 1.1, Baso % (Auto) 0.8, Neut # (Auto) 21.3 H, Lymph # (Auto) 2.3, [place] # (Auto) 0.9, Eos # (Auto) 0.3, Baso # (Auto) 0.2, Total Counted 100, Neutrophils % (Manual) 84 H, Lymphocytes % (Manual) 12, Monocytes % (Manual) 4, Platelet Estimate Normal, RBC Morphology Normal, ESR 17 H 10/05/21 03:20: Sodium 133 L, Potassium 4.0, Chloride 100, Carbon Dioxide 25, Anion Gap 12.0, BUN 19, Creatinine 1.70 H, Estimated Creat Clear 108, Estimated GFR 47 L, Est GFR ( Amer) 57 L, Glucose 338 H, Calcium 9.2, Total Bilirubin 0.4, AST 58, ALT 32, Alkaline Phosphatase 67, C-Reactive Protein 14.5 H, Total Protein 7.2, Albumin 4.1, Globulin 3.1, Albumin/Globulin Ratio 1.3, Amylase 640 H*, Lipase 14643 H, Procalcitonin 0.231 10/05/21 03:20: Hemoglobin A1c 9.3 H 10/05/21 03:20: Triglycerides 726 H, Cholesterol 178, LDL Cholesterol Direct 56.33 L, HDL Cholesterol 29 L, Cholesterol/HDL Ratio 6.1 H 10/05/21 03:47: Lactate 2.1 10/05/21 04:46: SARS-CoV-2 (PCR) Not detected, Influenza A Untype (PCR) Not detected, Influenza Type B (PCR) Not detected 10/05/21 08:15: Lactate 2.2 H 10/05/21 10:42: Lactate 1.9 I & O for Last 24 hours: Intake & Output 10/02/21 10/03/21 10/04/21 10/05/21 11:59 11:59 11:59 11:59 Intake Total 2400 / 2400 Balance 2400 / 2400 Weight 270 lb 0.002 oz - Constitutional no acute distress
--- NOTE | 2021-10-05 18:08 | PC.NURSE ---
Patient was an admit from the ER to room 212. Patient is non tele and weaned form 3L NC to 1.5. Patient has slept most of the day, few complaints of pain. Patient is up ad-mabel. Phone and call light in reach and bed in lowest position.
[2021-10-05 20:14] LABS: POC Glucose,Bedside 277 (70-110)
[2021-10-06 04:00] VITALS: BP 143/91; PULSE 116; RESP 18; TEMP 36.8; O2SAT 96
[2021-10-06 05:00] VITALS: BMI 38.2
[2021-10-06 06:55] LABS: POC Glucose,Bedside 235 (70-110)
[2021-10-06 07:34] VITALS: BP 141/75; PULSE 125; RESP 18; TEMP 36.6; O2SAT 97
[2021-10-06 07:37] LABS: Basophils # 0.1 K/mm3 (0-0.2); Basophils % 0.4 % (0.1-2.0); Eosinophils # 0.2 K/mm3 (0.0-0.4); Eosinophils % 1.3 % (0.1-12.0); Hematocrit 43.3 % (42.0-52.0); Hemoglobin 14.1 g/dL (14.1-18.0); Lymphocytes # 1.4 K/mm3 (0.7-4.5); Lymphocytes % 7.6 % (10-50); Mean Corpuscular HGB Conc 32.5 g/dL (31.8-35.4); Mean Corpuscular Hemoglobin 28.8 pg (27.0-31.2); Mean Corpuscular Volume 88.6 fl (80-94); Mean Platelet Volume 8.2 fl (7.4-10.4); Monocytes # 0.7 K/mm3 (0.1-1.0); Monocytes % 3.5 % (1.7-9.3); Neutrophils # 16.4 K/mm3 (1.8-7.8); Neutrophils % 87.3 % (37.0-80.0); Platelet Count 340 K/mm3 (142-424); Red Blood Count 4.88 M/mm3 (4.60-6.20); Red Cell Distribution Width 14.7 % (11.5-17.5); White Blood Count 18.8 K/mm3 (4.8-10.8)
[2021-10-06 07:42] LABS: Chloride 104 mmol/L (98-107); Potassium 4.3 mmoL/L (3.5-5.1); Sodium 135 mmol/L (136-145)
[2021-10-06 07:45] LABS: Anion Gap 12.3 mEq/L (5-15); Blood Urea Nitrogen 27 mg/dl (9-20); Carbon Dioxide 23 mmol/L (22.0-30.0); Creatinine Clearance Estimated 96 mL/min (50-200); Estimated Glomerular Filt Rate 41 ml/min (>60); GFR (African American) 50 ML/MIN (>60); Glucose 235 mg/dl (74-100)
[2021-10-06 07:46] LABS: Magnesium 1.5 mg/dl (1.6-2.3)
[2021-10-06 07:50] LABS: MANUAL DIFFERENTIAL MANUAL DIFFERENTIAL (MANUAL DIFF)
[2021-10-06 09:01] LABS: Eosinophils % 1 % (0-3); Lymphocytes % 6 % (10-50); Monocytes % 2 % (2-9); Neutrophils % 91 % (42-76); Platelet Estimate Normal; Total Cells Counted 100
[2021-10-06 09:04] LABS: Lipase 3465 U/L (23-300)
--- NOTE | 2021-10-06 09:11 | HMH.GSPN ---
Subjective Narrative: Mr. Oliver is a 31-year-old male admitted for abdominal pain and findings consistent with acute pancreatitis. Today, doing better. No significant complaints. Thought to be nonbiliary etiology; hypertriglycerides. No nausea or emesis. Lipase is improving. WBC is improving. Progress Note: A&P Assessment and Plan for All Diagnoses:: 1. Acute pancreatitis. No surgical intervention indicated. Continue supportive care. Available as needed. Exam Vital signs and Labs for Last 24 Hours: Temp Pulse Resp BP Pulse Ox 97.8 F 125 H 18 141/75 H 97 10/06/21 07:34 10/06/21 07:34 10/06/21 07:34 10/06/21 07:34 10/06/21 07:34 Laboratory Results - last 24 hr 10/05/21 10:42: Lactate 1.9 10/05/21 19:57: POC Glucose 277 H 10/06/21 06:05: POC Glucose 235 H 10/06/21 07:22: WBC 18.8 H, RBC 4.88, Hgb 14.1, Hct 43.3, MCV 88.6, MCH 28.8, MCHC 32.5, RDW 14.7, Plt Count 340 D, MPV 8.2, Neut % (Auto) 87.3 H, Lymph % (Auto) 7.6 L, [place] % (Auto) 3.5, Eos % (Auto) 1.3, Baso % (Auto) 0.4, Neut # (Auto) 16.4 H, Lymph # (Auto) 1.4, [place] # (Auto) 0.7, Eos # (Auto) 0.2, Baso # (Auto) 0.1, Total Counted 100, Neutrophils % (Manual) 91 H, Lymphocytes % (Manual) 6 L, Monocytes % (Manual) 2, Eosinophils % (Manual) 1, Platelet Estimate Normal 10/06/21 07:22: Sodium 135 L, Potassium 4.3, Chloride 104, Carbon Dioxide 23, Anion Gap 12.3, BUN 27 H D, Creatinine 1.90 H, Estimated Creat Clear 96, Estimated GFR 41 L, Est GFR ( Amer) 50 L, Glucose 235 H, Calcium 8.0 L, Magnesium 1.5 L 10/06/21 07:22: Lipase 3465 H I & O for Last 24 hours: Intake & Output 10/03/21 10/04/21 10/05/21 10/06/21 11:59 11:59 11:59 11:59 Intake Total 2400 / 2400 0 / 0 Output Total 750 / 750 Balance 2400 / 2400 -750 / -750 Weight 122.47 kg 121.064 kg - Constitutional no acute distress
--- NOTE | 2021-10-06 11:05 | P.PN_ITS ---
Internal Medicine - PN: Subj *Date: 10/06/21 *Time: 23:11 Interval history: doing some better - still limited po intake and has abd pain Exam Vital signs and Labs for Last 24 Hours: Temp Pulse Resp BP Pulse Ox 97.8 F 125 H 18 141/75 H 97 10/06/21 07:34 10/06/21 07:34 10/06/21 07:34 10/06/21 07:34 10/06/21 07:34 Laboratory Results - last 24 hr 10/05/21 10:42: Lactate 1.9 10/05/21 19:57: POC Glucose 277 H 10/06/21 06:05: POC Glucose 235 H 10/06/21 07:22: WBC 18.8 H, RBC 4.88, Hgb 14.1, Hct 43.3, MCV 88.6, MCH 28.8, MCHC 32.5, RDW 14.7, Plt Count 340 D, MPV 8.2, Neut % (Auto) 87.3 H, Lymph % (Auto) 7.6 L, [place] % (Auto) 3.5, Eos % (Auto) 1.3, Baso % (Auto) 0.4, Neut # (Auto) 16.4 H, Lymph # (Auto) 1.4, [place] # (Auto) 0.7, Eos # (Auto) 0.2, Baso # (Auto) 0.1, Total Counted 100, Neutrophils % (Manual) 91 H, Lymphocytes % (Manual) 6 L, Monocytes % (Manual) 2, Eosinophils % (Manual) 1, Platelet Estimate Normal 10/06/21 07:22: Sodium 135 L, Potassium 4.3, Chloride 104, Carbon Dioxide 23, Anion Gap 12.3, BUN 27 H D, Creatinine 1.90 H, Estimated Creat Clear 96, Estimated GFR 41 L, Est GFR ( Amer) 50 L, Glucose 235 H, Calcium 8.0 L, Magnesium 1.5 L 10/06/21 07:22: Lipase 3465 H I & O for Last 24 hours: Intake & Output 10/03/21 10/04/21 10/05/21 10/06/21 11:59 11:59 11:59 11:59 Intake Total 2400 / 2400 0 / 0 Output Total 750 / 750 Balance 2400 / 2400 -750 / -750 Weight 270 lb 0.002 oz 266 lb 14.4 oz - Constitutional no acute distress - *Routine HEENT Exam Head: Present: normocephalic Eye: Present: EOMI, PERRL ENT: Present: mucous membranes dry - *Routine Neck Exam Absent: JVD - *Routine Respiratory Exam Present: CTA bilaterally - *Routine Cardiovascular Exam Present: RRR - *Routine Abdominal Exam Present: soft, tenderness. Absent: distended, rebound - *Routine Extremities Exam Absent: calf tenderness - *Routine Skin Exam Present: intact - *Routine Neurological Exam Present: alert, CN II-XII intact - Routine Psychiatric Exam Present: cooperative
[2021-10-06 15:09] VITALS: BP 151/86; PULSE 117; RESP 20; TEMP 36.6; O2SAT 95
--- NOTE | 2021-10-06 17:54 | PC.NURSE ---
pt has tolerated full liquids well. no c/o nausea. Has been ambulating around the room
[2021-10-06 19:56] VITALS: BP 137/76; PULSE 107; RESP 18; TEMP 36.9; O2SAT 92
[2021-10-07] VITALS (10 sets, daily range): BP systolic 132–159; BP diastolic 76–86; PULSE 81–123; RESP 18–20; TEMP 36.6–37.3; O2SAT 95–96; BMI 38.2
[2021-10-07 06:26] LABS: POC Glucose,Bedside 192 (70-110)
[2021-10-07 07:33] LABS: Basophils # 0.1 K/mm3 (0-0.2); Basophils % 0.5 % (0.1-2.0); Eosinophils # 0.1 K/mm3 (0.0-0.4); Eosinophils % 0.6 % (0.1-12.0); Hematocrit 37.2 % (42.0-52.0); Lymphocytes # 1.7 K/mm3 (0.7-4.5); Lymphocytes % 10.1 % (10-50); Mean Corpuscular HGB Conc 32.5 g/dL (31.8-35.4); Mean Corpuscular Hemoglobin 28.8 pg (27.0-31.2); Mean Corpuscular Volume 88.6 fl (80-94); Mean Platelet Volume 8.2 fl (7.4-10.4); Monocytes # 0.7 K/mm3 (0.1-1.0); Monocytes % 3.9 % (1.7-9.3); Neutrophils # 14.5 K/mm3 (1.8-7.8); Platelet Count 258 K/mm3 (142-424); Red Blood Count 4.19 M/mm3 (4.60-6.20)
[2021-10-07 07:52] LABS: Chloride 101 mmol/L (98-107); Sodium 134 mmol/L (136-145)
[2021-10-07 07:53] LABS: Potassium 3.8 mmoL/L (3.5-5.1)
[2021-10-07 07:55] LABS: Alanine Aminotransferase 18 U/L (12-78); Alkaline Phosphatase 48 U/L (38-126); Anion Gap 10.8 mEq/L (5-15); Aspartate Amino Transferase 31 U/L (17-59); Bilirubin,Total 0.5 mg/dl (0.2-1.3); Blood Urea Nitrogen 28 mg/dl (9-20); Carbon Dioxide 26 mmol/L (22.0-30.0); Creatinine Clearance Estimated 113 mL/min (50-200); Estimated Glomerular Filt Rate 50 ml/min (>60); GFR (African American) 61 ML/MIN (>60)
[2021-10-07 07:56] LABS: Albumin Level 3.2 g/dl (3.5-5.0); Albumin/Globulin Ratio 1.1 (1.1-1.8); Glucose 178 mg/dl (74-100); Total Protein,Serum 6.2 g/dl (6.3-8.2)
[2021-10-07 07:58] LABS: Hemoglobin 12.1 g/dL (14.1-18.0); MANUAL DIFFERENTIAL MANUAL DIFFERENTIAL (MANUAL DIFF)
[2021-10-07 08:11] LABS: Lipase 867 U/L (23-300)
[2021-10-07 08:50] LABS: Eosinophils % 2 % (0-3); Lymphocytes % 20 % (10-50); Monocytes % 4 % (2-9); Neutrophils % 74 % (42-76); Platelet Estimate Normal; RBC Morphology Normal; Total Cells Counted 100
--- NOTE | 2021-10-07 09:19 | HMH.ACPN2 ---
Internal Medicine - PN: Subj *Date: 10/07/21 *Time: 09:19 Interval history: doing better with dec pain and leora diet - labs improved Exam Vital signs and Labs for Last 24 Hours: Temp Pulse Resp BP Pulse Ox 99.1 F 123 H 18 139/79 96 10/07/21 07:44 10/07/21 07:44 10/07/21 07:44 10/07/21 07:44 10/07/21 07:44 Laboratory Results - last 24 hr 10/07/21 05:55: POC Glucose 192 H 10/07/21 06:24: WBC 17.0 H, RBC 4.19 L, Hgb 12.1 L D, Hct 37.2 L, MCV 88.6, MCH 28.8, MCHC 32.5, RDW 14.0, Plt Count 258, MPV 8.2, Neut % (Auto) 85.0 H, Lymph % (Auto) 10.1, [place] % (Auto) 3.9, Eos % (Auto) 0.6, Baso % (Auto) 0.5, Neut # (Auto) 14.5 H, Lymph # (Auto) 1.7, [place] # (Auto) 0.7, Eos # (Auto) 0.1, Baso # (Auto) 0.1, Total Counted 100, Neutrophils % (Manual) 74, Lymphocytes % (Manual) 20, Monocytes % (Manual) 4, Eosinophils % (Manual) 2, Platelet Estimate Normal, RBC Morphology Normal 10/07/21 06:24: Sodium 134 L, Potassium 3.8, Chloride 101, Carbon Dioxide 26, Anion Gap 10.8, BUN 28 H, Creatinine 1.60 H, Estimated Creat Clear 113, Estimated GFR 50 L, Est GFR ( Amer) 61 D, Glucose 178 H D, Calcium 8.0 L, Total Bilirubin 0.5, AST 31 D, ALT 18 D, Alkaline Phosphatase 48, Total Protein 6.2 L, Albumin 3.2 L, Globulin 3.0, Albumin/Globulin Ratio 1.1, Lipase 867 H I & O for Last 24 hours: Intake & Output 10/04/21 10/05/21 10/06/21 10/07/21 11:59 11:59 11:59 11:59 Intake Total 2400 / 2400 0 / 0 840 / 840 Output Total 750 / 750 900 / 900 Balance 2400 / 2400 -750 / -750 -60 / -60 Weight 270 lb 0.002 oz 266 lb 14.4 oz 266 lb 12.149 oz Microbiology Reports for the Last 24 Hours: Microbiology 10/05/21 03:47 Blood Blood Culture - Preliminary NO GROWTH AFTER 48 HOURS 10/05/21 03:47 Blood Blood Culture - Preliminary NO GROWTH AFTER 48 HOURS - Constitutional no acute distress, obese - *Routine HEENT Exam Head: Present: normocephalic Eye: Present: EOMI, PERRL ENT: Present: mucous membranes dry - *Routine Neck Exam Absent: JVD - *Routine Respiratory Exam Present: CTA bilaterally - *Routine Cardiovascular Exam Present: RRR - *Routine Abdominal Exam Present: soft, tenderness. Absent: distended - *Routine Extremities Exam Absent: calf tenderness - *Routine Skin Exam Present: intact - *Routine Neurological Exam Present: alert, CN II-XII intact - Routine Psychiatric Exam Present: cooperative
[2021-10-07 16:33] LABS: POC Glucose,Bedside 210 (70-110)
[2021-10-07 16:33] LABS: POC Glucose,Bedside 189 (70-110)
[2021-10-07 16:33] LABS: POC Glucose,Bedside 195 (70-110)
[2021-10-07 16:33] LABS: POC Glucose,Bedside 231 (70-110)
[2021-10-07 16:57] LABS: POC Glucose,Bedside 202 (70-110)
[2021-10-07 20:52] LABS: POC Glucose,Bedside 309 (70-110)
[2021-10-08 04:00] VITALS: BP 137/74; PULSE 100; RESP 21; TEMP 36.8; O2SAT 95
[2021-10-08 04:31] VITALS: BMI 39.2
[2021-10-08 05:23] LABS: POC Glucose,Bedside 156 (70-110)
[2021-10-08 05:30] VITALS: PULSE 102; PULSE 98; O2SAT 92
[2021-10-08 07:25] VITALS: BP 139/79; PULSE 102; RESP 18; TEMP 36.4; O2SAT 90
[2021-10-08 08:00] VITALS: O2SAT 92
[2021-10-08 10:56] LABS: Lipase 173 U/L (23-300)
[2021-10-08 11:30] LABS: POC Glucose,Bedside 171 (70-110)
--- NOTE | 2021-10-08 12:20 | HMH.DCSUM ---
General - General Admission date:: 10/05/21 Discharge date: 10/08/21 HPI HPI: this patient presented to the ed with abd pain and nausea -c/o upper ABD pain that started ~ 3 hr ago with nausea and vomting. States this happened a few days ago but went away and then came back worse . Denies any fever, chills, diarrhea or respiratory issues. Tender to RUQ and RLQ abd.- pt with acute pancreatitis and was admitted for ivf and pain control and surg eval Hospital Course Hospital Course: Laboratory Tests 10/05/21 10/05/21 10/05/21 03:13 03:13 03:20 WBC 24.9 H* RBC 5.31 Hgb 15.4 Hct 46.5 MCV 87.5 MCH 29.0 MCHC 33.1 RDW 14.7 Plt Count 566 H MPV 8.1 Neut % (Auto) 85.5 H Lymph % (Auto) 9.1 L [place] % (Auto) 3.6 Eos % (Auto) 1.1 Baso % (Auto) 0.8 Neut # (Auto) 21.3 H Lymph # (Auto) 2.3 [place] # (Auto) 0.9 Eos # (Auto) 0.3 Baso # (Auto) 0.2 Total Counted 100 Neutrophils % (Manual) 84 H Lymphocytes % (Manual) 12 Monocytes % (Manual) 4 Eosinophils % (Manual) Platelet Estimate Normal RBC Morphology Normal ESR 17 H Sodium Potassium Chloride Carbon Dioxide Anion Gap BUN Creatinine Estimated Creat Clear Estimated GFR Est GFR ( Amer) Glucose POC Glucose Hemoglobin A1c Lactate Calcium Magnesium Total Bilirubin AST ALT Alkaline Phosphatase C-Reactive Protein Total Protein Albumin Globulin Albumin/Globulin Ratio Triglycerides Cholesterol LDL Cholesterol Direct HDL Cholesterol Cholesterol/HDL Ratio Amylase Lipase Procalcitonin Urine Color Yellow Urine Appearance Clear Urine pH 6.0 Ur Specific [place] >= 1.030 Urine Protein 3+ Urine Glucose (UA) Trace Urine Ketones Negative Urine Blood 2+ Urine Nitrate Negative Urine Bilirubin Negative Urine Urobilinogen 0.2 Ur Leukocyte Esterase Negative Urine WBC 3-5 Urine Bacteria 1+ Urine Mucus Trace Urine Opiates Screen Negative Urine Methadone Screen Negative Ur Barbituates Screen Negative Ur Phencyclidine Scrn Negative Ur Amphetamines Screen Negative U Benzodiazepines Scrn Negative Urine Cocaine Screen Negative U Marijuana (THC) Screen Negative SARS-CoV-2 (PCR) Influenza A Untype (PCR) Influenza Type B (PCR) 10/05/21 10/05/21 10/05/21 03:20 03:20 03:20 WBC RBC Hgb Hct MCV MCH MCHC RDW Plt Count MPV Neut % (Auto) Lymph % (Auto) [place] % (Auto) Eos % (Auto) Baso % (Auto) Neut # (Auto) Lymph # (Auto) [place] # (Auto) Eos # (Auto) Baso # (Auto) Total Counted Neutrophils % (Manual) Lymphocytes % (Manual) Monocytes % (Manual) Eosinophils % (Manual) Platelet Estimate RBC Morphology ESR Sodium 133 L Potassium 4.0 Chloride 100 Carbon Dioxide 25 Anion Gap 12.0 BUN 19 Creatinine 1.70 H Estimated Creat Clear 108 Estimated GFR 47 L Est GFR ( Amer) 57 L Glucose 338 H POC Glucose Hemoglobin A1c 9.3 H Lactate Calcium 9.2 Magnesium Total Bilirubin 0.4 AST 58 ALT 32 Alkaline Phosphatase 67 C-Reactive Protein 14.5 H Total Protein 7.2 Albumin 4.1 Globulin 3.1 Albumin/Globulin Ratio 1.3 Triglycerides 726 H Cholesterol 178 LDL Cholesterol Direct 56.33 L HDL Cholesterol 29 L Cholesterol/HDL Ratio 6.1 H Amylase 640 H* Lipase 18303 H Procalcitonin 0.231 Urine Color Urine Appearance Urine pH Ur Specific [place] Urine Protein Urine Glucose (UA) Urine Ketones Urine Blood Urine Nitrate Urine Bilirubin Urine Urobilinogen Ur Leukocyte Esterase Urine WBC Urine Bacteria Urine Mucus Urine Opiates Screen Urine Methadone Screen Ur Barbituates S
[2021-10-08 13:30] VITALS: PULSE 113; PULSE 119
== END 2021-10-08 14:31 | disposition home or self-care (01) | DRG 440 ==
LOC: ER 03:12 → 2ND 05:55
PROVIDERS: Admitting Provider Emergency Medicine; Emergency Provider Emergency Medicine; PCP Emergency Medicine; Visit Provider Emergency Medicine
DX: K85.80 Other acute pancreatitis without necrosis or infection (principal); E11.9 Type 2 diabetes mellitus without complications; I10 Essential (primary) hypertension; E66.9 Obesity, unspecified; Z68.39 Body mass index [BMI] 39.0-39.9, adult; J45.909 Unspecified asthma, uncomplicated; F17.210 Nicotine dependence, cigarettes, uncomplicated
CPT/HCPCS: 36415; 74177; 76705; 80048; 80053; 80061; 80305; 81001; 82150; 82962; 83036; 83605; 83690; 83735; 84145; 85007; 85025; 85651; 86140; 87040; 94640; 96365; 96366; 99284; C9803; J2405; Q9967; U0003; U0005

== ENCOUNTER 2021-10-10 11:26 | Emergency (ER) | payer MEDICAID, SELFPAY ==
[2021-10-10 11:31] VITALS: BP 181/120; PULSE 105; RESP 18; TEMP 36.7; O2SAT 95; BMI 38.0
[2021-10-10 12:00] VITALS: BP 169/102; PULSE 101; O2SAT 96
--- NOTE | 2021-10-10 12:17 | HMH.EDABDPAI ---
ED Disposition Clinical Impression: Abdominal pain Disposition: Home, Self-Care Condition on Discharge: Fair Instructions: DI for Acute Abdominal Pain Prescriptions: Hydrocodone/Acetaminophen [Hydrocodone-Acetamin 5-325 mg] 1 each PO NEEDED PRN #2 tab PRN Reason: Breakthru Severe Pain Transmission Status: [facility] to [facility] Referrals: Kimani Tavarez MD [Primary Care Provider] - - Critical Care Critical Care Time: No Attestation: On 10/10/21, the high probability of a clinically significant, sudden or life threatening deterioration of the following system(s) required my full and direct attention, intervention and personal management. The time I documented below is in addition to time spent performing reported procedures but includes the following listed in this critical care notation. Medical Decision Making - Medical Records Medical records reviewed: Yes: I reviewed the patient's medical records. - Paddy Inquiry Pt receiving controlled substance: Yes Paddy was queried for this patient: Yes Risks and benefits of using a controlled substance: were discussed with pt by me Vital Signs: 10/10/21 11:31 10/10/21 12:00 Temperature 98.1 F Temperature Source Oral Pulse Rate 101 H Pulse Rate [Right Radial] 105 H Respiratory Rate 18 Blood Pressure 169/102 H Blood Pressure [Right Arm] 181/120 H Blood Pressure Mean [Right Arm] 140 Blood Pressure Source [Right Arm] Automatic Cuff Blood Pressure Position [Right Arm] Sitting 02 Sat by Pulse Oximetry 95 96 Oxygen Delivery Method Room Air - Lab Data Lab Results 10/10/21 11:45: WBC 13.6 H, RBC 3.93 L, Hgb 11.4 L, Hct 33.9 L, MCV 86.2, MCH 29.1, MCHC 33.7, RDW 13.8, Plt Count 357 D, MPV 8.9, Neut % (Auto) 81.1 H, Lymph % (Auto) 11.8, [place] % (Auto) 4.6, Eos % (Auto) 2.0, Baso % (Auto) 0.4, Neut # (Auto) 11.0 H, Lymph # (Auto) 1.6, [place] # (Auto) 0.6, Eos # (Auto) 0.3, Baso # (Auto) 0.1 10/10/21 11:45: Sodium 135 L, Potassium 3.3 L, Chloride 99, Carbon Dioxide 32 H, Anion Gap 7.3, BUN 14, Creatinine 1.20, Estimated Creat Clear 150, Estimated GFR 70, Est GFR ( Amer) 85, Glucose 185 H, Calcium 8.7, Total Bilirubin 0.4, AST 35, ALT 27, Alkaline Phosphatase 91, Total Protein 6.7, Albumin 3.2 L, Globulin 3.5 H, Albumin/Globulin Ratio 0.9 L, Amylase 55, Lipase 192 10/10/21 11:45: Triglycerides 218 H 10/10/21 12:40: Lactate 1.1 Result diagrams: 10/10/21 11:45 10/10/21 11:45 Orders (Tests/Meds): ED MEDICATIONS Discontinued Medications Generic Name Dose Route Start Last Admin Trade Name Freq PRN Reason Stop Dose Admin Lactated Ringer's 500 mls @ 999 mls/hr 10/10/21 12:15 10/10/21 12:27 Lactated Ringer's 1000 Ml Bag IV 10/10/21 12:45 999 mls/hr .Q31M HOMAR Administration Morphine Sulfate 4 mg 10/10/21 12:01 10/10/21 12:27 Morphine 2mg/Ml Syringe IV 10/10/21 12:02 4 mg ONCE ONE Administration Ondansetron HCl 4 mg 10/10/21 12:01 10/10/21 12:27 Ondansetron 4mg/2ml Vial IV 10/10/21 12:02 4 mg ONCE ONE Administration Medical Decision Narrative: Patient is a 32-year-old male with past medical history of hypertension, type 2 diabetes presenting to the ED with epigastric abdominal pain. Patient is awake, alert, in mild distress due to pain. Patient is hemodynamically stable, afebrile. Physical exam remarkable for tenderness to palpation diffusely, worse in the epigastrium. Includes was not limited to acute pancreatitis, pseudocyst, necrotic pancreatitis. This a CBC, CMP, lipase, amylase, lactate is performed. Patient recently had a ultrasound of his gallbladder, CT abdomen pelvis performed which showed no gallstones, CT is consistent with acute pancreatitis at this point I do not believe the patient needs any additional imaging. Triglycerides are also ordered in an effort to find the cause of patient's pancreatitis. Abdominal Pain HPI - General Chief Complaint: Abdominal Pain Stated Complaint: A
[2021-10-10 12:28] LABS: Basophils # 0.1 K/mm3 (0-0.2); Basophils % 0.4 % (0.1-2.0); Eosinophils # 0.3 K/mm3 (0.0-0.4); Hematocrit 33.9 % (42.0-52.0); Hemoglobin 11.4 g/dL (14.1-18.0); Lymphocytes # 1.6 K/mm3 (0.7-4.5); Lymphocytes % 11.8 % (10-50); Mean Corpuscular HGB Conc 33.7 g/dL (31.8-35.4); Mean Corpuscular Hemoglobin 29.1 pg (27.0-31.2); Mean Corpuscular Volume 86.2 fl (80-94); Mean Platelet Volume 8.9 fl (7.4-10.4); Monocytes # 0.6 K/mm3 (0.1-1.0); Monocytes % 4.6 % (1.7-9.3); Neutrophils % 81.1 % (37.0-80.0); Platelet Count 357 K/mm3 (142-424); Red Blood Count 3.93 M/mm3 (4.60-6.20); Red Cell Distribution Width 13.8 % (11.5-17.5); White Blood Count 13.6 K/mm3 (4.8-10.8)
[2021-10-10 12:30] VITALS: BP 175/95; PULSE 105; O2SAT 96
[2021-10-10 12:31] LABS: Alanine Aminotransferase 27 U/L (12-78); Albumin Level 3.2 g/dl (3.5-5.0); Albumin/Globulin Ratio 0.9 (1.1-1.8); Alkaline Phosphatase 91 U/L (38-126); Amylase 55 U/L (30-110); Anion Gap 7.3 mEq/L (5-15); Aspartate Amino Transferase 35 U/L (17-59); Bilirubin,Total 0.4 mg/dl (0.2-1.3); Blood Urea Nitrogen 14 mg/dl (9-20); Calcium 8.7 mg/dl (8.4-10.2); Carbon Dioxide 32 mmol/L (22.0-30.0); Chloride 99 mmol/L (98-107); Creatinine Clearance Estimated 150 mL/min (50-200); Estimated Glomerular Filt Rate 70 ml/min (>60); GFR (African American) 85 ML/MIN (>60); Globulin 3.5 g/dL (1.3-3.2); Glucose 185 mg/dl (74-100); Lipase 192 U/L (23-300); Potassium 3.3 mmoL/L (3.5-5.1); Sodium 135 mmol/L (136-145); Total Protein,Serum 6.7 g/dl (6.3-8.2); Triglycerides 218 mg/dl (30-150)
[2021-10-10 12:55] LABS: Lactic Acid 1.1 mmol/L (0.7-2.1)
[2021-10-10 13:00] VITALS: BP 177/88; PULSE 98; O2SAT 91
[2021-10-10 13:30] VITALS: BP 173/102; PULSE 100; O2SAT 93
--- NOTE | 2021-10-10 14:07 | PC.NURSE ---
ASHLEY BEASLEY speaking with Dr Tavarez
[2021-10-10 14:55] VITALS: BP 171/98; PULSE 99; RESP 18; TEMP 36.8; O2SAT 97
== END 2021-10-10 14:55 | disposition home or self-care (01) ==
PROVIDERS: Emergency Provider Emergency Medicine; PCP Emergency Medicine
DX: R10.13 Epigastric pain (principal); E11.9 Type 2 diabetes mellitus without complications; I10 Essential (primary) hypertension; E78.5 Hyperlipidemia, unspecified; Z88.0 Allergy status to penicillin; Z79.899 Other long term (current) drug therapy
CPT/HCPCS: 80053; 82150; 83605; 83690; 84478; 85025; 96365; 96375; 99282; J2405

== ENCOUNTER 2021-10-19 11:16 | Inpatient (IN) | payer MEDICAID, SELFPAY ==
[2021-10-19] VITALS (12 sets, daily range): BP systolic 113–175; BP diastolic 58–110; PULSE 89–107; RESP 18–21; TEMP 36.6–37.1; O2SAT 91–100; BMI 33.5; BMI 36.5
--- NOTE | 2021-10-19 11:38 | HMH.EDGENADL ---
ED Disposition Clinical Impression: Necrotizing pancreatitis Disposition: Admitted As Inpatient Condition on Discharge: Undetermined - Critical Care Critical Care Time: No Attestation: On , the high probability of a clinically significant, sudden or life threatening deterioration of the following system(s) required my full and direct attention, intervention and personal management. The time I documented below is in addition to time spent performing reported procedures but includes the following listed in this critical care notation. Medical Decision Making - Medical Records Medical records reviewed: Yes: I reviewed the patient's medical records. - Paddy Inquiry Pt receiving controlled substance: Yes (Required dose of opioids for acute pain. ) Paddy was queried for this patient: No (Acute pain treatment. ) Risks and benefits of using a controlled substance: were not discussed with pt by me Vital Signs: 10/19/21 12:00 10/19/21 12:05 10/19/21 13:01 Temperature 97.8 F Temperature Source Oral Pulse Rate 97 H 106 H Pulse Rate [Right Radial] 107 H Respiratory Rate 18 Blood Pressure 136/80 119/73 Blood Pressure [Right Arm] 122/84 Blood Pressure Mean [Right Arm] 96 Blood Pressure Source [Right Arm] Automatic Cuff Blood Pressure Position [Right Arm] Sitting 02 Sat by Pulse Oximetry 97 97 91 L Oxygen Delivery Method Room Air Oxygen Flow Rate (LPM) 10/19/21 13:27 10/19/21 14:02 10/19/21 14:31 Temperature Temperature Source Pulse Rate 102 H 101 H 89 Pulse Rate [Right Radial] Respiratory Rate Blood Pressure 113/58 L 175/110 H 159/68 H Blood Pressure [Right Arm] Blood Pressure Mean [Right Arm] Blood Pressure Source [Right Arm] Blood Pressure Position [Right Arm] 02 Sat by Pulse Oximetry 95 95 96 Oxygen Delivery Method Oxygen Flow Rate (LPM) 10/19/21 15:00 10/19/21 16:14 10/19/21 16:41 Temperature Temperature Source Pulse Rate 98 H 100 H Pulse Rate [Right Radial] Respiratory Rate Blood Pressure 143/90 H Blood Pressure [Right Arm] Blood Pressure Mean [Right Arm] Blood Pressure Source [Right Arm] Blood Pressure Position [Right Arm] 02 Sat by Pulse Oximetry 98 98 98 Oxygen Delivery Method Nasal Cannula Nasal Cannula Oxygen Flow Rate (LPM) 2 1 10/19/21 18:00 Temperature 97.8 F Temperature Source Oral Pulse Rate Pulse Rate [Right Radial] 90 Respiratory Rate 21 Blood Pressure Blood Pressure [Right Arm] 119/78 Blood Pressure Mean [Right Arm] 91 Blood Pressure Source [Right Arm] Automatic Cuff Blood Pressure Position [Right Arm] 02 Sat by Pulse Oximetry 92 L Oxygen Delivery Method Nasal Cannula Oxygen Flow Rate (LPM) 1 - Lab Data Lab results reviewed: Yes: I reviewed the patient's lab results. Lab Results 10/19/21 11:45: WBC 18.5 H, RBC 4.72, Hgb 13.4 L, Hct 41.7 L, MCV 88.3, MCH 28.4, MCHC 32.2, RDW 13.9, Plt Count 1136 H*, MPV 9.3, Neut % (Auto) 74.6, Lymph % (Auto) 18.4, [place] % (Auto) 3.9, Eos % (Auto) 2.3, Baso % (Auto) 0.7, Neut # (Auto) 13.8 H, Lymph # (Auto) 3.4, [place] # (Auto) 0.7, Eos # (Auto) 0.4, Baso # (Auto) 0.1, Total Counted 100, Neutrophils % (Manual) 81 H, Lymphocytes % (Manual) 17, Monocytes % (Manual) 2, Nucleated RBCs 2, Platelet Estimate Moderate increase, Hypochromasia 1+, Anisocytosis 1+, Macrocytosis 1+ 10/19/21 11:45: Sodium 135 L, Potassium 5.9 H, Chloride 103, Carbon Dioxide 21 L, Anion Gap 16.9 H, BUN 17, Creatinine 1.40 H, Estimated Creat Clear 117, Estimated GFR 59, Est GFR ( Amer) 71, Glucose 234 H, Calcium 9.6, Total Bilirubin 0.6, AST 48, ALT 39, Alkaline Phosphatase 93, Total Protein 7.7, Albumin 4.0, Globulin 3.7 H, Albumin/Globulin Ratio 1.1, Amylase 327 H*, Lipase 743 H 10/19/21 11:45: Lactate 1.8 10/19/21 15:46: SARS-CoV-2 (PCR) Not detected, Influenza A Untype (PCR) Not detected, Influenza Type B (PCR) Not detected Result diagrams: 10/19/21 11:45 10/19/21 11:45 Orders
--- NOTE | 2021-10-19 11:50 | CT_ITS ---
PROCEDURE: CT ABDOMEN PELVIS W CON CLINICAL INDICATION: Diffuse abdominal pain, distention/rigidity COMPARISON: CT CT ABDOMEN PELVIS W CON from 10/05/2021 TECHNIQUE: IV Contrast: 75ML Isovue 370 Oral Contrast None Axial images obtained with sagittal and coronal reformats. All CT scans at the facility use one or more dose reduction, viz: automated exposure control, ma/kV adjustment per patient size (including targeted exams where dose is matched to indication, i.e. head), or iterative reconstruction technique. FINDINGS: LOWER THORAX: No acute finding ABDOMEN & PELVIS: The liver, spleen, adrenal glands, and kidneys have an unremarkable appearance. There is a large amount of peripancreatic fluid. The pancreas is heterogeneous in density with areas of decreased density with irregular areas of low attenuation in the body of the pancreas consistent with necrotizing pancreatitis. There is a small amount perisplenic and perihepatic fluid. There is some heterogeneous attenuation in the mesenteries. Small amount fluid is present in the right pericolic gutter. There is a moderate amount of fluid in the pelvis. The peripancreatic fluid has increased compared to the previous exam. Pelvic fluid is also increased. No intestinal obstruction or free air. No evidence of appendicitis or diverticulitis. No acute bony findings IMPRESSION: The findings are compatible with necrotizing pancreatitis. The areas of low attenuation in the pancreas have developed since the previous exam as well as increasing peripancreatic fluid and increasing ascites. Dictated by: Sunil Vázquez MD 10/19/2021 13:06 Sunil Vázquez MD in [facility] 10/19/2021 13:06
--- NOTE | 2021-10-19 12:03 | PC.NURSE ---
Latrice martin for neb treatment
[2021-10-19 12:09] LABS: Chloride 103 mmol/L (98-107); Potassium 5.9 mmoL/L (3.5-5.1); Sodium 135 mmol/L (136-145)
[2021-10-19 12:12] LABS: Alanine Aminotransferase 39 U/L (12-78); Albumin/Globulin Ratio 1.1 (1.1-1.8); Alkaline Phosphatase 93 U/L (38-126); Amylase 327 U/L (30-110); Anion Gap 16.9 mEq/L (5-15); Aspartate Amino Transferase 48 U/L (17-59); Bilirubin,Total 0.6 mg/dl (0.2-1.3); Blood Urea Nitrogen 17 mg/dl (9-20); Calcium 9.6 mg/dl (8.4-10.2); Carbon Dioxide 21 mmol/L (22.0-30.0); Creatinine Clearance Estimated 117 mL/min (50-200); Estimated Glomerular Filt Rate 59 ml/min (>60); GFR (African American) 71 ML/MIN (>60); Globulin 3.7 g/dL (1.3-3.2); Glucose 234 mg/dl (74-100); Total Protein,Serum 7.7 g/dl (6.3-8.2)
[2021-10-19 12:13] LABS: Lactic Acid 1.8 mmol/L (0.7-2.1)
--- NOTE | 2021-10-19 12:14 | PC.NURSE ---
Pt went to CT
[2021-10-19 12:17] LABS: Lipase 743 U/L (23-300)
--- NOTE | 2021-10-19 12:17 | PC.NURSE ---
Anahy called a lipase of 743MD aware
--- NOTE | 2021-10-19 12:38 | PC.NURSE ---
Tried to get pt to get urine sample. He stated that he cannot at this time. I left a urinal in the patient's room.
[2021-10-19 12:52] LABS: Basophils # 0.1 K/mm3 (0-0.2); Basophils % 0.7 % (0.1-2.0); Eosinophils # 0.4 K/mm3 (0.0-0.4); Eosinophils % 2.3 % (0.1-12.0); Hematocrit 41.7 % (42.0-52.0); Hemoglobin 13.4 g/dL (14.1-18.0); Lymphocytes # 3.4 K/mm3 (0.7-4.5); Lymphocytes % 18.4 % (10-50); Mean Corpuscular HGB Conc 32.2 g/dL (31.8-35.4); Mean Corpuscular Hemoglobin 28.4 pg (27.0-31.2); Mean Corpuscular Volume 88.3 fl (80-94); Mean Platelet Volume 9.3 fl (7.4-10.4); Monocytes # 0.7 K/mm3 (0.1-1.0); Monocytes % 3.9 % (1.7-9.3); Neutrophils # 13.8 K/mm3 (1.8-7.8); Neutrophils % 74.6 % (37.0-80.0); Red Blood Count 4.72 M/mm3 (4.60-6.20); Red Cell Distribution Width 13.9 % (11.5-17.5); White Blood Count 18.5 K/mm3 (4.8-10.8)
[2021-10-19 13:08] LABS: Platelet Count 1136 K/mm3 (142-424)
[2021-10-19 13:09] LABS: MANUAL DIFFERENTIAL MANUAL DIFFERENTIAL (MANUAL DIFF)
[2021-10-19 13:11] LABS: Anisocytosis 1+; Hypochromasia 1+; Lymphocytes % 17 % (10-50); Macrocytosis 1+; Monocytes % 2 % (2-9); Neutrophils % 81 % (42-76); Nucleated Red Blood Cells 2; Total Cells Counted 100
[2021-10-19 13:12] LABS: Platelet Estimate Moderate Increase
--- NOTE | 2021-10-19 15:17 | PC.NURSE ---
Dr Alberto speaking with Dr Tavarez for possible admission he wants pt transferred
--- NOTE | 2021-10-19 15:28 | PC.NURSE ---
Spoke with Ivis OBANDO from Clinic to verify medication.
--- NOTE | 2021-10-19 15:35 | PC.NURSE ---
Calling [facility] at this time.
--- NOTE | 2021-10-19 15:39 | PC.NURSE ---
ASHLEY BEASLEY speaking with [facility]
--- NOTE | 2021-10-19 15:44 | PC.NURSE ---
is on divert, calling [facility] at this time.
[2021-10-19 15:54] LABS: Coronavirus 19, PCR Not Detected (NotDetected); Influenza A, PCR Not Detected (NotDetected); Influenza B, PCR Not Detected (NotDetected)
--- NOTE | 2021-10-19 16:01 | PC.NURSE ---
[address] Concepcion at [facility].
--- NOTE | 2021-10-19 16:01 | PC.NURSE ---
[facility] is unable to accept pt. MD going to speak with pt to discuss options.
--- NOTE | 2021-10-19 16:13 | PC.NURSE ---
Called [facility]
--- NOTE | 2021-10-19 16:17 | PC.NURSE ---
Spoke with pt he stated that he still is unable to urinate. There is a urinal at bedside.
--- NOTE | 2021-10-19 16:23 | PC.NURSE ---
HOUSE HAS BEEN CALLED FOR BED PLACEMENT
--- NOTE | 2021-10-19 17:10 | PC.NURSE ---
Called report into [facility]
--- NOTE | 2021-10-19 18:21 | PC.NURSE ---
pt arrived to the floor at this time
[2021-10-20] VITALS: BP 154/92; PULSE 113; RESP 16; TEMP 37.1; O2SAT 96
[2021-10-20 04:00] VITALS: BP 150/92; PULSE 107; RESP 20; TEMP 37; O2SAT 99
[2021-10-20 05:41] VITALS: BMI 37.3
--- NOTE | 2021-10-20 05:43 | PC.NURSE ---
Patient alert and oriented x 4, c/o abdominal pain t/o night treated per mar with relief noted. Patient has gibbons draining dark yellow urine at bedside. Call jeffrey in reach, will continue to monitor.
[2021-10-20 07:24] LABS: Chloride 100 mmol/L (98-107)
[2021-10-20 07:25] LABS: Sodium 135 mmol/L (136-145)
[2021-10-20 07:27] LABS: Amylase 422 U/L (30-110)
[2021-10-20 07:28] LABS: Alanine Aminotransferase 26 U/L (12-78); Albumin Level 3.4 g/dl (3.5-5.0); Alkaline Phosphatase 83 U/L (38-126); Aspartate Amino Transferase 21 U/L (17-59); Basophils # 0.1 K/mm3 (0-0.2); Basophils % 0.4 % (0.1-2.0); Bilirubin,Total 0.4 mg/dl (0.2-1.3); Blood Urea Nitrogen 24 mg/dl (9-20); Calcium 9.2 mg/dl (8.4-10.2); Carbon Dioxide 24 mmol/L (22.0-30.0); Creatinine Clearance Estimated 95 mL/min (50-200); Eosinophils # 0.2 K/mm3 (0.0-0.4); Eosinophils % 2.1 % (0.1-12.0); Estimated Glomerular Filt Rate 44 ml/min (>60); GFR (African American) 53 ML/MIN (>60); Globulin 3.5 g/dL (1.3-3.2); Glucose 189 mg/dl (74-100); Hematocrit 37.5 % (42.0-52.0); Hemoglobin 12.4 g/dL (14.1-18.0); Lymphocytes # 0.8 K/mm3 (0.7-4.5); Lymphocytes % 6.7 % (10-50); Magnesium 1.8 mg/dl (1.6-2.3); Mean Corpuscular HGB Conc 33.2 g/dL (31.8-35.4); Mean Corpuscular Hemoglobin 28.2 pg (27.0-31.2); Mean Corpuscular Volume 84.9 fl (80-94); Mean Platelet Volume 8.1 fl (7.4-10.4); Monocytes # 0.4 K/mm3 (0.1-1.0); Monocytes % 3.8 % (1.7-9.3); Platelet Count 662 K/mm3 (142-424); Red Blood Count 4.41 M/mm3 (4.60-6.20); Red Cell Distribution Width 13.8 % (11.5-17.5); Total Protein,Serum 6.9 g/dl (6.3-8.2); White Blood Count 11.5 K/mm3 (4.8-10.8)
[2021-10-20 07:33] LABS: MANUAL DIFFERENTIAL MANUAL DIFFERENTIAL (MANUAL DIFF)
[2021-10-20 07:36] LABS: Lipase 893 U/L (23-300)
[2021-10-20 08:00] VITALS: BP 166/91; PULSE 108; RESP 21; TEMP 36.6; O2SAT 97
--- NOTE | 2021-10-20 09:00 | PC.NURSE ---
aware of pt critical labs. awaiting traNSFER
--- NOTE | 2021-10-20 09:38 | HMH.GSCON ---
*Admission Date: 10/20/21 *Reason for consult:: Abdominal Pain/Pancreatitis *History of present illness: Patient is a 31-year-old male who had been admitted on 10/05/2021 with acute onset of epigastric pain. He had chemical and radiographic evidence of acute pancreatitis at that time. Work-up was negative for biliary etiology with negative gallbladder ultrasound with no gallbladder wall thickening, no stones, normal common bile duct at 3 mm. His liver function tests have always been normal. He was discharged on 10/08/2021. He presented to the emergency department on 10/10/2021 with ongoing epigastric pain stating that the Lortab had not been alleviating his pain. He was managed as an outpatient at that time. He was seen in his primary care provider's office couple of times subsequently. He presented back to the emergency department yesterday with some exacerbation in the pain. He underwent work-up and was found to have a white blood cell count of 18,000. Platelet count was 1,136,000 interestingly. He had amylase of 327 and lipase of 743. Remaining laboratory studies revealed potassium 5.9, BUN 17, creatinine 1.4, glucose 243. He underwent CT scan which revealed findings of large amount of peripancreatic fluid with a heterogeneous density with irregularities of low-attenuation in the pancreas consistent with possible necrotizing pancreatitis. Small amount of perisplenic and perihepatic fluid. Given the findings and clinical scenario patient was obviously in need of tertiary facility. Attempt was made for transfer to numerous tertiary facilities to no avail. Reportedly [facility] did accept the patient but he is on the waiting list. Review of Systems - Review of Systems Review of systems:: pertinent systems reviewed and negative unless documented below - *Neurologic Denies localized weakness, Denies headache(s), Denies numbness, Denies fainting [facility] History I have reviewed the patient's past medical history: Yes Medical History: Reports:: Asthma, Diabetes Mellitus Type 2, Hypertension Denies:: Cancer, Diabetes Mellitus Type 1, MRSA *Have you ever received a pneumonia vaccine?: No *Have you received a flu vaccine this season?: No Other Surgeries: Yes: Hernia Repair Amputation: No - *Social History Last grade of school completed: High school graduate Smoking Status: Current some day smoker Tobacco Type: cigarettes, smokeless tobacco # Packs/Day (cigarettes): 1 Alcohol Intake: never Alcohol Intake Frequency:: holidays/special occasions only Substance Use Type: denies use *Occupational Status:: employed Housing: house Household Members: spouse *Travel in the last 8 weeks: None Family Hx:: Diabetes Meds Home Medications Medication Instructions Recorded Confirmed Type Albuterol Sulfate [Albuterol 1 puff IH Q4HP PRN 10/05/21 10/19/21 History Sulfate Hfa] Aspirin [Low Dose Aspirin EC] 81 mg PO DAILY 10/05/21 10/19/21 History Atorvastatin Calcium [Lipitor 20mg 20 mg PO DAILY 10/05/21 10/19/21 History Tab] Cholecalciferol (Vitamin D3) 50 mcg PO DAILY 10/05/21 10/19/21 History [Vitamin D3] Loratadine 10 mg PO DAILY 10/05/21 10/19/21 History Metformin HCl 500 mg PO BIDWMEAL 10/05/21 10/19/21 History hydroCHLOROthiazide [HCTZ 25mg 25 mg PO DAILY 10/05/21 10/19/21 History tab] lisinopriL [Lisinopril] 10 mg PO DAILY 10/05/21 10/19/21 History hydroxyzine pamoate 25 mg capsule 25 mg PO TID PRN #60 cap 10/11/21 10/19/21 Rx hydrocodone 5 mg-acetaminophen 325 1 tab PO Q6H PRN #14 tab 10/16/21 10/19/21 Rx mg tablet Dicyclomine HCl [Bentyl 10mg 10 mg PO TID 10/19/21 10/19/21 History capsule] Allergies Allergy/AdvReac Type Severity Reaction Status Date / Time Penicillins [PENICILLINS] Allergy Unknown Verified 10/19/21 12:39 Exam Vital signs and Labs for Last 24 Hours: Temp Pulse Resp BP Pulse Ox 97.8 F 108 H 21 166/91 H 97 10/20/21 08:00 10/20/21 08:00
[2021-10-20 09:39] LABS: Lymphocytes % 15 % (10-50); Monocytes % 3 % (2-9); Neutrophils % 82 % (42-76); Platelet Estimate Slight Increase; RBC Morphology Normal; Total Cells Counted 100
--- NOTE | 2021-10-20 11:04 | HMH.HPDC ---
General - General Admission date:: 10/19/21 Discharge date: 10/20/21 *Admission Date: 10/20/21 *Chief complaint: abd pain *History of present illness: this patient presents to [facility] ed with abd pain -31-year-old male presenting with a chief complaint of epigastric abdominal pain radiating to the back with the last hour of onset. Patient reports the pain is similar to prior pain. He was seen in the emergency department here on 10/05 and evaluated with a CT scan with contrast and right upper quadrant ultrasound was found to have acute pancreatitis. Patient reports intermittent nausea and pain is worsened with breathing. Patient denies fever at home, upper respiratory symptoms, changes in GI/, blood per rectum, hematuria/dysuria. Patient had a normal bowel movement this morning. Pain medication at home has not controlled his pain. lubna is a 31-year-old male with a history of acute pancreatitis presenting for chief complaint of severe abdominal pain. Per patient, severe pain started approximately 25 minutes to presentation. Differential diagnosis includes, but is not limited to, acute pancreatitis, complication such as pseudocyst or necrotizing pancreatitis, perforated viscus, other. On initial exam, patient is hemodynamically stable. He is diaphoretic and appears to be in pain. Abdominal exam is concerning as abdomen is distended, rigid and diffusely tender. Patient was treated with 1 L of IV fluids, IV morphine, IV Zofran and p.o. Tylenol. He was evaluate CBC, CMP, lipase/amylase, lactic acid, UA and CT abdomen and pelvis with contrast. Lab work is significant for elevated lipase/amylase in comparison to prior, mildly elevated anion gap and creatinine. CT imaging shows: IMPRESSION: The findings are compatible with necrotizing pancreatitis. The areas of low attenuation in the pancreas have developed since the previous exam as well as increasing peripancreatic fluid and increasing ascites. Given the findings and potential for decompensation, attempt was made for transfer to a higher care facility without success. Patient additionally refused transfer at this time. Given this, patient was started on aggressive fluid resuscitation, pain control and admitted for further treatment of necrotizing pancreatitis. I spoke with transfer center at who placed patient on a transfer list. Patient was started on cefepime IV. pt was admitted with ivf and abx with pain meds - discussed with pt need for transfer and pt understood [facility] History I have reviewed the patient's past medical history: Yes Medical History: Reports:: Asthma, Diabetes Mellitus Type 2, Hypertension Denies:: Cancer, Diabetes Mellitus Type 1, MRSA *Have you ever received a pneumonia vaccine?: No *Have you received a flu vaccine this season?: No Other Surgeries: Yes: Hernia Repair Amputation: No - *Social History Last grade of school completed: High school graduate Smoking Status: Current some day smoker Tobacco Type: cigarettes, smokeless tobacco # Packs/Day (cigarettes): 1 Alcohol Intake: never Alcohol Intake Frequency:: holidays/special occasions only Substance Use Type: denies use *Occupational Status:: employed Housing: house Household Members: spouse *Travel in the last 8 weeks: None Family Hx:: Diabetes Review of Systems - Review of Systems Review of systems:: pertinent systems reviewed and negative unless documented below - Constitutional Denies fever(s) - Eyes Denies change in vision - ENT Denies sore throat - *Cardiovascular Denies chest pain - *Respiratory Denies cough - *Gastrointestinal Reports abdominal pain, Reports nausea, Reports vomiting - *Genitourinary Denies blood in urine - *Musculoskeletal Denies joint pain - Integumentary/Breasts Denies rash - *Neurologic Denies localized weakness, Denies headache(s), Denies numbness, Denies fainting - Psychiatric Denies depression Exam Vital signs and Labs for Last 24 H
[2021-10-20 16:00] VITALS: BP 165/86; PULSE 104; RESP 21; TEMP 36.9; O2SAT 94
[2021-10-20 18:29] LABS: Chloride 108 mmol/L (98-107); Sodium 141 mmol/L (136-145)
[2021-10-20 18:30] LABS: Potassium 3.9 mmoL/L (3.5-5.1)
[2021-10-20 18:33] LABS: Anion Gap 9.9 mEq/L (5-15); Blood Urea Nitrogen 30 mg/dl (9-20); Calcium 9.3 mg/dl (8.4-10.2); Carbon Dioxide 27 mmol/L (22.0-30.0); Creatinine Clearance Estimated 156 mL/min (50-200); Estimated Glomerular Filt Rate 78 ml/min (>60); GFR (African American) 94 ML/MIN (>60); Glucose 98 mg/dl (74-100)
[2021-10-20 20:00] VITALS: O2SAT 98
[2021-10-21] VITALS: BP 154/87; PULSE 111; RESP 16; TEMP 36.8; O2SAT 95; O2SAT 98
[2021-10-21 06:49] VITALS: BMI 38.0
[2021-10-21 06:52] LABS: Basophils % 0.3 % (0.1-2.0); Eosinophils # 0.2 K/mm3 (0.0-0.4); Eosinophils % 2.1 % (0.1-12.0); Hematocrit 33.7 % (42.0-52.0); Lymphocytes # 1.3 K/mm3 (0.7-4.5); Lymphocytes % 11.6 % (10-50); Mean Corpuscular HGB Conc 31.5 g/dL (31.8-35.4); Mean Corpuscular Hemoglobin 28.4 pg (27.0-31.2); Mean Corpuscular Volume 90.3 fl (80-94); Mean Platelet Volume 7.8 fl (7.4-10.4); Monocytes # 0.5 K/mm3 (0.1-1.0); Monocytes % 4.5 % (1.7-9.3); Neutrophils # 9.1 K/mm3 (1.8-7.8); Neutrophils % 81.5 % (37.0-80.0); Platelet Count 528 K/mm3 (142-424); Red Blood Count 3.73 M/mm3 (4.60-6.20); Red Cell Distribution Width 14.1 % (11.5-17.5); White Blood Count 11.2 K/mm3 (4.8-10.8)
[2021-10-21 06:56] LABS: Chloride 102 mmol/L (98-107); Potassium 4.9 mmoL/L (3.5-5.1); Sodium 134 mmol/L (136-145)
[2021-10-21 06:57] LABS: Hemoglobin 10.7 g/dL (14.1-18.0)
[2021-10-21 06:58] LABS: Alanine Aminotransferase 22 U/L (12-78); Alkaline Phosphatase 83 U/L (38-126); Anion Gap 11.9 mEq/L (5-15); Aspartate Amino Transferase 27 U/L (17-59); Bilirubin,Total 0.3 mg/dl (0.2-1.3); Blood Urea Nitrogen 24 mg/dl (9-20); Carbon Dioxide 25 mmol/L (22.0-30.0); Creatinine Clearance Estimated 125 mL/min (50-200); Estimated Glomerular Filt Rate 59 ml/min (>60); GFR (African American) 71 ML/MIN (>60); Lipase 529 U/L (23-300)
--- NOTE | 2021-10-21 06:58 | PC.NURSE ---
Pt a&ox 4, with c/o abdominal pain t/o shift treated per mar with relief noted. Watson in place draining dark yellow urine at bedside. Pt still waiting for bed at , no update on time frame at this time.call jeffrey in reach, will continue to monitor.
[2021-10-21 06:59] LABS: Albumin/Globulin Ratio 0.9 (1.1-1.8); Calcium 8.9 mg/dl (8.4-10.2); Globulin 3.3 g/dL (1.3-3.2); Glucose 158 mg/dl (74-100); Total Protein,Serum 6.3 g/dl (6.3-8.2)
[2021-10-21 08:00] VITALS: BP 160/86; PULSE 109; RESP 18; TEMP 37.1; O2SAT 97; O2SAT 98
--- NOTE | 2021-10-21 08:43 | HMH.GSPN ---
Subjective Narrative: No new issues. Progress Note: A&P (1) LILIA (acute kidney injury) Status: Acute (2) Necrotizing pancreatitis Status: Acute (3) Obesity (BMI 30-39.9) Status: Acute (4) Tobacco use Status: Acute (5) Diabetes Status: Chronic (6) Hypertension Status: Chronic (7) Thrombocytosis Status: Acute (8) Hyperkalemia Status: Acute Assessment and Plan for All Diagnoses:: Continue aggressive attempt at transfer. Exam Vital signs and Labs for Last 24 Hours: Temp Pulse Resp BP Pulse Ox 98.2 F 111 H 16 154/87 H 95 10/21/21 00:00 10/21/21 00:00 10/21/21 00:00 10/21/21 00:00 10/21/21 00:00 Laboratory Results - last 24 hr 10/20/21 06:10: Total Counted 100, Neutrophils % (Manual) 82 H, Lymphocytes % (Manual) 15, Monocytes % (Manual) 3, Platelet Estimate Slight increase, RBC Morphology Normal 10/20/21 18:07: Sodium 141, Potassium 3.9 D, Chloride 108 H, Carbon Dioxide 27, Anion Gap 9.9, BUN 30 H, Creatinine 1.10 D, Estimated Creat Clear 156, Estimated GFR 78, Est GFR ( Amer) 94 D, Glucose 98 D, Calcium 9.3 10/21/21 05:49: WBC 11.2 H, RBC 3.73 L, Hgb 10.7 L D, Hct 33.7 L, MCV 90.3, MCH 28.4, MCHC 31.5 L, RDW 14.1, Plt Count 528 H, MPV 7.8, Neut % (Auto) 81.5 H, Lymph % (Auto) 11.6, [place] % (Auto) 4.5, Eos % (Auto) 2.1, Baso % (Auto) 0.3, Neut # (Auto) 9.1 H, Lymph # (Auto) 1.3, [place] # (Auto) 0.5, Eos # (Auto) 0.2, Baso # (Auto) 0.0 10/21/21 05:49: Sodium 134 L, Potassium 4.9 D, Chloride 102, Carbon Dioxide 25, Anion Gap 11.9, BUN 24 H, Creatinine 1.40 H D, Estimated Creat Clear 125, Estimated GFR 59, Est GFR ( Amer) 71 D, Glucose 158 H D, Calcium 8.9, Total Bilirubin 0.3, AST 27 D, ALT 22, Alkaline Phosphatase 83, Total Protein 6.3, Albumin 3.0 L D, Globulin 3.3 H, Albumin/Globulin Ratio 0.9 L, Lipase 529 H I & O for Last 24 hours: Intake & Output 10/18/21 10/19/21 10/20/21 10/21/21 11:59 11:59 11:59 11:59 Intake Total 25 / 25 Output Total 700 / 700 1800 / 1800 Balance -700 / -700 -1775 / -1775 Weight 240 lb 251 lb 12.8 oz 257 lb Narrative: Patient resting.
--- NOTE | 2021-10-21 09:26 | P.PN_ITS ---
Subjective Narrative: Patient now awake. States he does feel a bit better. Still with pain in epigastrium and LUQ, slightly improved. Progress Note: A&P (1) LILIA (acute kidney injury) Status: Acute (2) Necrotizing pancreatitis Status: Acute (3) Obesity (BMI 30-39.9) Status: Acute (4) Tobacco use Status: Acute (5) Diabetes Status: Chronic (6) Hypertension Status: Chronic (7) Thrombocytosis Status: Acute (8) Hyperkalemia Status: Acute Assessment and Plan for All Diagnoses:: Continue to limit to ice chips for now. Exam Vital signs and Labs for Last 24 Hours: Temp Pulse Resp BP Pulse Ox 98.2 F 111 H 16 154/87 H 95 10/21/21 00:00 10/21/21 00:00 10/21/21 00:00 10/21/21 00:00 10/21/21 00:00 Laboratory Results - last 24 hr 10/20/21 06:10: Total Counted 100, Neutrophils % (Manual) 82 H, Lymphocytes % (Manual) 15, Monocytes % (Manual) 3, Platelet Estimate Slight increase, RBC Morphology Normal 10/20/21 18:07: Sodium 141, Potassium 3.9 D, Chloride 108 H, Carbon Dioxide 27, Anion Gap 9.9, BUN 30 H, Creatinine 1.10 D, Estimated Creat Clear 156, Estimated GFR 78, Est GFR ( Amer) 94 D, Glucose 98 D, Calcium 9.3 10/21/21 05:49: WBC 11.2 H, RBC 3.73 L, Hgb 10.7 L D, Hct 33.7 L, MCV 90.3, MCH 28.4, MCHC 31.5 L, RDW 14.1, Plt Count 528 H, MPV 7.8, Neut % (Auto) 81.5 H, Lymph % (Auto) 11.6, [place] % (Auto) 4.5, Eos % (Auto) 2.1, Baso % (Auto) 0.3, Neut # (Auto) 9.1 H, Lymph # (Auto) 1.3, [place] # (Auto) 0.5, Eos # (Auto) 0.2, Baso # (Auto) 0.0 10/21/21 05:49: Sodium 134 L, Potassium 4.9 D, Chloride 102, Carbon Dioxide 25, Anion Gap 11.9, BUN 24 H, Creatinine 1.40 H D, Estimated Creat Clear 125, Estimated GFR 59, Est GFR ( Amer) 71 D, Glucose 158 H D, Calcium 8.9, Total Bilirubin 0.3, AST 27 D, ALT 22, Alkaline Phosphatase 83, Total Protein 6.3, Albumin 3.0 L D, Globulin 3.3 H, Albumin/Globulin Ratio 0.9 L, Lipase 529 H I & O for Last 24 hours: Intake & Output 10/18/21 10/19/21 10/20/21 10/21/21 11:59 11:59 11:59 11:59 Intake Total 25 / 25 Output Total 700 / 700 1800 / 1800 Balance -700 / -700 -1775 / -1775 Weight 240 lb 251 lb 12.8 oz 257 lb - *Routine Abdominal Exam Present: soft Comments: Some left upper quadrant tendernes without guarding or rebound.
--- NOTE | 2021-10-21 10:52 | HMH.PHAVTE ---
[facility] Pharmacy VTE Monitoring - Patient Demographics Admission date: 10/19/21 Report Date: 10/21/21 Time: 10:52 Allergies/Adverse Reactions: Patient Allergies Penicillins [PENICILLINS] Allergy (Unknown, Verified 10/19/21 12:39) Height: 1.75 m Weight: 116.573 kg Patient Problems: Current Active Problems Obesity (BMI 30-39.9) (Acute) Tobacco use (Acute) Necrotizing pancreatitis (Acute) LILIA (acute kidney injury) (Acute) Thrombocytosis (Acute) Hyperkalemia (Acute) Hypertension (Chronic) Diabetes (Chronic) - VTE Risk Labs: VTE Related Lab Results Hgb 10.7 g/dL (14.1-18.0) L D 10/21/21 05:49 Hct 33.7 % (42.0-52.0) L 10/21/21 05:49 Plt Count 528 K/mm3 (142-424) H 10/21/21 05:49 BUN 24 mg/dl (9-20) H 10/21/21 05:49 Creatinine 1.40 mg/dl (0.66-1.25) H D 10/21/21 05:49 Estimated Creat Clear 125 mL/min (50-200) 10/21/21 05:49 Was VTE Risk Assessment Performed: No VTE Score: 3 VTE Risk Level: Low Risk - Prophylaxis Types of VTE Prophylaxis: TEDS Knee High (MAGGIE HOSE ORDERED. DISCHARGE ORDERS PLACED 10/20/21) Location of Applied Device: Bilateral Lower Extremeties
--- NOTE | 2021-10-21 11:56 | HMH.ACPN2 ---
Internal Medicine - PN: Subj *Date: 10/21/21 *Time: 11:59 Interval history: Patient without significant decompensations overnight. He is receiving Dilaudid milligram every 2 hours which is sufficient for pain control. Is also on IV cefepime. Work-up for biliary etiology has been unfruitful. General surgery is consulting with us. Patient has been accepted to , we are waiting on bed availability Exam Vital signs and Labs for Last 24 Hours: Temp Pulse Resp BP Pulse Ox 98.8 F 109 H 18 160/86 H 98 10/21/21 08:00 10/21/21 08:00 10/21/21 08:00 10/21/21 08:00 10/21/21 08:00 Laboratory Results - last 24 hr 10/20/21 18:07: Sodium 141, Potassium 3.9 D, Chloride 108 H, Carbon Dioxide 27, Anion Gap 9.9, BUN 30 H, Creatinine 1.10 D, Estimated Creat Clear 156, Estimated GFR 78, Est GFR ( Amer) 94 D, Glucose 98 D, Calcium 9.3 10/21/21 05:49: WBC 11.2 H, RBC 3.73 L, Hgb 10.7 L D, Hct 33.7 L, MCV 90.3, MCH 28.4, MCHC 31.5 L, RDW 14.1, Plt Count 528 H, MPV 7.8, Neut % (Auto) 81.5 H, Lymph % (Auto) 11.6, [place] % (Auto) 4.5, Eos % (Auto) 2.1, Baso % (Auto) 0.3, Neut # (Auto) 9.1 H, Lymph # (Auto) 1.3, [place] # (Auto) 0.5, Eos # (Auto) 0.2, Baso # (Auto) 0.0 10/21/21 05:49: Sodium 134 L, Potassium 4.9 D, Chloride 102, Carbon Dioxide 25, Anion Gap 11.9, BUN 24 H, Creatinine 1.40 H D, Estimated Creat Clear 125, Estimated GFR 59, Est GFR ( Amer) 71 D, Glucose 158 H D, Calcium 8.9, Total Bilirubin 0.3, AST 27 D, ALT 22, Alkaline Phosphatase 83, Total Protein 6.3, Albumin 3.0 L D, Globulin 3.3 H, Albumin/Globulin Ratio 0.9 L, Lipase 529 H I & O for Last 24 hours: Intake & Output 10/18/21 10/19/21 10/20/21 10/21/21 23:59 23:59 23:59 23:59 Intake Total 0 / 0 Output Total 700 / 2500 1800 / 1800 Balance -675 / -2475 -1800 / -1800 Weight 247 lb 7 oz 251 lb 12.8 oz 257 lb - Constitutional no acute distress, obese - *Routine HEENT Exam Head: Present: normocephalic Eye: Present: EOMI, PERRL ENT: Present: mucous membranes moist - *Routine Neck Exam Present: supple. Absent: lymphadenopathy - *Routine Respiratory Exam Present: CTA bilaterally - *Routine Cardiovascular Exam Present: RRR - *Routine Abdominal Exam Present: soft, tenderness, obese. Absent: distended, rebound, guarding, firm, rigid, mass - *Routine Extremities Exam Absent: cyanosis, clubbing, edema - *Routine Skin Exam Present: warm. Absent: rash - *Routine Neurological Exam Present: alert, oriented X3 Assessment and Plan (1) LILIA (acute kidney injury) Status: Acute Category: Medical Code(s): N17.9 - Acute kidney failure, unspecified (2) Necrotizing pancreatitis Status: Acute Category: Medical Code(s): K85.91 - Acute pancreatitis with uninfected necrosis, unspecified (3) Obesity (BMI 30-39.9) Status: Acute Category: Medical Code(s): E66.9 - Obesity, unspecified (4) Tobacco use Status: Acute Category: Social Hx Code(s): Z72.0 - Tobacco use (5) Diabetes Status: Chronic Qualifiers: Diabetes mellitus type: type 2 Diabetes mellitus 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: unspecified intermediate insulin use status Diabetes mellitus complication status: with other specified complication Qualified Code(s): E11.69 - Type 2 diabetes mellitus with other specified complication Category: Medical Code(s): E11.9 - Type 2 diabetes mellitus without complications (6) Hypertension Status: Chronic Qualifiers: Hypertension type: primary hypertension Qualified Code(s): I10 - Essential (primary) hypertension Category: Medical Code(s): I10 - Essential (primary) hypertension (7) Thrombocytosis Status: Acute Category: Medical Code(s): D75.839 - Thrombocytosis, unspecified (8) Hyperkalemia Status: Acute Category: Medical Code(s): E87.5 - Hyperkalemia - Assessment and plan all Dx Assessment and Plan for all problems:: We will continue his current regimen of IV fluids
--- NOTE | 2021-10-21 13:02 | PC.NURSE ---
Called to check on status of bed at this time ([id number]) states that pt is a high priority on list but we are still just waiting on bed.
[2021-10-21 16:00] VITALS: BP 156/64; PULSE 90; RESP 18; TEMP 36.7; O2SAT 97
[2021-10-21 16:10] LABS: POC Glucose,Bedside 153 (70-110)
[2021-10-21 20:00] VITALS: BP 139/79; PULSE 100; RESP 16; TEMP 36.9; O2SAT 97
[2021-10-21 21:35] VITALS: O2SAT 97
[2021-10-21 22:03] LABS: POC Glucose,Bedside 119 (70-110)
--- NOTE | 2021-10-22 04:18 | PC.WOUNDNOTE ---
At approximately 0345 patient has complaints of a tingling sensation on his bottom and asked this RN to check it out. This RN found a 2cm x 1cm DTI between his gluteal folds. Patient is independent and up as tolerated. This RN educated the patient on turning every 2 hours to relieve pressure on his coccyx. Photo consent on file.
[2021-10-22 05:56] LABS: POC Glucose,Bedside 108 (70-110)
[2021-10-22 06:00] VITALS: BP 128/81; PULSE 93; RESP 17; TEMP 36.8; O2SAT 97; BMI 86.2
--- NOTE | 2021-10-22 07:29 | HMH.GSPN ---
Subjective Narrative: Patient states that he may feel a bit better. Still with some tenderness. Progress Note: A&P (1) LILIA (acute kidney injury) Status: Acute (2) Necrotizing pancreatitis Status: Acute Assessment and plan: Seemingly nonbiliary acute pancreatitis. Continue to aggressively work on transfer. May try a few sips of clears. (3) Obesity (BMI 30-39.9) Status: Acute (4) Tobacco use Status: Acute (5) Diabetes Status: Chronic (6) Hypertension Status: Chronic (7) Thrombocytosis Status: Acute (8) Hyperkalemia Status: Acute Exam Vital signs and Labs for Last 24 Hours: Temp Pulse Resp BP Pulse Ox 98.3 F 93 H 17 128/81 97 10/22/21 06:00 10/22/21 06:00 10/22/21 06:00 10/22/21 06:00 10/22/21 06:00 Laboratory Results - last 24 hr 10/21/21 15:59: POC Glucose 153 H 10/21/21 21:44: POC Glucose 119 H 10/22/21 05:49: POC Glucose 108 I & O for Last 24 hours: Intake & Output 10/19/21 10/20/21 10/21/21 10/22/21 11:59 11:59 11:59 11:59 Intake Total 25 / 25 8352 / 8352 Output Total 700 / 700 1800 / 1800 3125 / 3125 Balance -700 / -700 -1775 / -1775 5227 / 5227 Weight 240 lb 251 lb 12.8 oz 257 lb 582 lb 7.38 oz - *Routine Abdominal Exam Present: soft Comments: Some LUQ tenderness.
[2021-10-22 08:00] VITALS: BP 138/93; PULSE 98; RESP 18; TEMP 37.1; O2SAT 96; O2SAT 97; O2SAT 98
--- NOTE | 2021-10-22 09:32 | P.PN_ITS ---
Internal Medicine - PN: Subj *Date: 10/22/21 *Time: 08:45 Interval history: pt states tenderness in abd Exam Vital signs and Labs for Last 24 Hours: Temp Pulse Resp BP Pulse Ox 98.7 F 98 H 18 138/93 H 98 10/22/21 08:00 10/22/21 08:00 10/22/21 08:00 10/22/21 08:00 10/22/21 08:00 Laboratory Results - last 24 hr 10/21/21 15:59: POC Glucose 153 H 10/21/21 21:44: POC Glucose 119 H 10/22/21 05:49: POC Glucose 108 I & O for Last 24 hours: Intake & Output 10/19/21 10/20/21 10/21/21 10/22/21 11:59 11:59 11:59 11:59 Intake Total 25 / 25 8352 / 8352 Output Total 700 / 700 1800 / 1800 3125 / 3125 Balance -700 / -700 -1775 / -1775 5227 / 5227 Weight 240 lb 251 lb 12.8 oz 257 lb 582 lb 7.38 oz - Constitutional no acute distress - *Routine HEENT Exam Head: Present: normocephalic Eye: Present: PERRL ENT: Present: mucous membranes moist - *Routine Neck Exam Present: supple. Absent: lymphadenopathy - *Routine Respiratory Exam Present: CTA bilaterally - *Routine Cardiovascular Exam Present: RRR - *Routine Abdominal Exam Present: soft, normoactive bowel sounds, tenderness - *Routine Extremities Exam Absent: cyanosis, clubbing, edema - *Routine Skin Exam Present: warm. Absent: rash - *Routine Neurological Exam Present: alert, oriented X3 Assessment and Plan (1) LILIA (acute kidney injury) Status: Acute Category: Medical Code(s): N17.9 - Acute kidney failure, unspecified (2) Necrotizing pancreatitis Status: Acute Category: Medical Code(s): K85.91 - Acute pancreatitis with uninfected necrosis, unspecified (3) Obesity (BMI 30-39.9) Status: Acute Category: Medical Code(s): E66.9 - Obesity, unspecified (4) Tobacco use Status: Acute Category: Social Hx Code(s): Z72.0 - Tobacco use (5) Diabetes Status: Chronic Qualifiers: Diabetes mellitus type: type 2 Diabetes mellitus retirement insulin use: unspecified retirement insulin use status Diabetes mellitus complication status: with other specified complication Qualified Code(s): E11.69 - Type 2 diabetes mellitus with other specified complication Category: Medical Code(s): E11.9 - Type 2 diabetes mellitus without complications (6) Hypertension Status: Chronic Qualifiers: Hypertension type: primary hypertension Qualified Code(s): I10 - Essential (primary) hypertension Category: Medical Code(s): I10 - Essential (primary) hypertension (7) Thrombocytosis Status: Acute Category: Medical Code(s): D75.839 - Thrombocytosis, unspecified (8) Hyperkalemia Status: Acute Category: Medical Code(s): E87.5 - Hyperkalemia - Assessment and plan all Dx Assessment and Plan for all problems:: rounded with dr bowie all orders per dr bowie spoke with -still no beds up date given to bed coordinator
[2021-10-22 10:12] LABS: Amylase 220 U/L (30-110); Lipase 405 U/L (23-300)
[2021-10-22 11:44] LABS: POC Glucose,Bedside 126 (70-110)
[2021-10-22 16:00] VITALS: BP 155/91; PULSE 95; RESP 16; TEMP 36.7; O2SAT 95
[2021-10-22 16:28] LABS: POC Glucose,Bedside 108 (70-110)
--- NOTE | 2021-10-22 16:32 | PC.NURSE ---
Patient has been pleasant and cooperative this shift, weaned to RA, has c/o abdominal pain in LUQ that penetrates to his back, treated with pain meds per emar with good relief, vital signs have remained stable, FC patent and draining clear yellow urine at bedside, no s/s of distress noted, awaiting transfer to .
[2021-10-22 20:00] VITALS: BP 130/82; PULSE 92; RESP 16; TEMP 36.6; O2SAT 95
[2021-10-22 20:31] LABS: POC Glucose,Bedside 98 (70-110)
--- NOTE | 2021-10-22 21:46 | PC.NURSE ---
Gave ice chips. No other care needed
--- NOTE | 2021-10-23 04:10 | PC.NURSE ---
A&OX4. TOLERATING RA WELL. PT HAS C/O ABD PAIN Q2H THIS SHIFT. TX PER JAN, ON REASSESSMENT PT RESTING IN BED. F/C PRESENT DRAINING BRIGHT YELLOW URINE. RESTING INTERMITTENTLY. NO OTHER C/O THUS FAR, VSS WILL CONTINUE TO MONITOR.
[2021-10-23 05:08] LABS: POC Glucose,Bedside 98 (70-110)
[2021-10-23 05:35] VITALS: BP 163/99; PULSE 96; RESP 18; TEMP 36.7; O2SAT 96
[2021-10-23 05:39] VITALS: BMI 42.7
--- NOTE | 2021-10-23 05:43 | PC.NURSE ---
Emptied gibbons and BSC.Emptied trash and linens
[2021-10-23 08:00] VITALS: BP 172/90; PULSE 103; RESP 17; TEMP 36.8; O2SAT 96
[2021-10-23 08:49] LABS: Basophils % 0.5 % (0.1-2.0); Eosinophils # 0.3 K/mm3 (0.0-0.4); Eosinophils % 3.2 % (0.1-12.0); Hematocrit 34.2 % (42.0-52.0); Hemoglobin 10.7 g/dL (14.1-18.0); Lymphocytes # 1.1 K/mm3 (0.7-4.5); Lymphocytes % 12.7 % (10-50); Mean Corpuscular HGB Conc 31.3 g/dL (31.8-35.4); Mean Corpuscular Hemoglobin 27.8 pg (27.0-31.2); Mean Corpuscular Volume 88.8 fl (80-94); Mean Platelet Volume 6.7 fl (7.4-10.4); Monocytes # 0.3 K/mm3 (0.1-1.0); Monocytes % 3.9 % (1.7-9.3); Neutrophils # 6.6 K/mm3 (1.8-7.8); Neutrophils % 79.6 % (37.0-80.0); Platelet Count 511 K/mm3 (142-424); Red Blood Count 3.86 M/mm3 (4.60-6.20); Red Cell Distribution Width 13.3 % (11.5-17.5); White Blood Count 8.3 K/mm3 (4.8-10.8)
[2021-10-23 08:59] LABS: Chloride 104 mmol/L (98-107); Potassium 4.2 mmoL/L (3.5-5.1); Sodium 137 mmol/L (136-145)
[2021-10-23 09:01] LABS: Amylase 240 U/L (30-110); Lipase 486 U/L (23-300)
[2021-10-23 09:02] LABS: Alanine Aminotransferase 49 U/L (12-78); Albumin Level 3.1 g/dl (3.5-5.0); Albumin/Globulin Ratio 0.9 (1.1-1.8); Alkaline Phosphatase 114 U/L (38-126); Anion Gap 13.2 mEq/L (5-15); Aspartate Amino Transferase 36 U/L (17-59); Bilirubin,Total 0.2 mg/dl (0.2-1.3); Blood Urea Nitrogen 17 mg/dl (9-20); Calcium 8.6 mg/dl (8.4-10.2); Carbon Dioxide 24 mmol/L (22.0-30.0); Creatinine Clearance Estimated 86 mL/min (50-200); Estimated Glomerular Filt Rate 70 ml/min (>60); GFR (African American) 85 ML/MIN (>60); Globulin 3.4 g/dL (1.3-3.2); Glucose 119 mg/dl (74-100); Total Protein,Serum 6.5 g/dl (6.3-8.2)
--- NOTE | 2021-10-23 10:25 | MR_ITS ---
PROCEDURE: MR ABDOMEN WO/W CON CLINICAL INDICATION: Necrotizing Pancreatiitis COMPARISON: CT CT ABDOMEN PELVIS W CON from 10/19/2021 TECHNIQUE: Routine multiplanar multi echo sequences are performed without and with gadolinium enhancement. MRCP images also performed FINDINGS: There are prominent peripancreatic fluid collections. The body and head of the pancreas show irregular areas of parenchymal destruction consistent with necrotizing pancreatitis. The peripancreatic fluid does not appear significantly changed. Generalized upper abdominal ascites however is present and appears slightly larger in volume compared to the previous exam with fluid in the perihepatic and perisplenic region. Increase in amount fluid in the left upper quadrant anteriorly. There is splenomegaly at 16 cm. Mild atrophic changes are present involving the left kidney. MRCP images are performed but an are very limited. No obvious biliary dilatation. Cannot exclude biliary pathology based on this exam. IMPRESSION: Necrotizing pancreatitis involving the body and head of the pancreas. Prominent peripancreatic fluid collections as well as upper abdominal ascites. Splenomegaly MRCP images extremely limited and essentially nondiagnostic Dictated by: Sunil Vázquez MD 10/23/2021 14:19 Sunil Vázquez MD in [facility] 10/23/2021 14:19
[2021-10-23 11:04] LABS: POC Glucose,Bedside 117 (70-110)
[2021-10-23 16:00] VITALS: BP 163/93; PULSE 105; RESP 17; TEMP 36.8; O2SAT 96
[2021-10-23 16:09] LABS: POC Glucose,Bedside 118 (70-110)
--- NOTE | 2021-10-23 16:16 | PC.NURSE ---
Pt has been pleasant and cooperative this shift. A&O X4. Pt has had frequent complaints of pain and has been medicated with Dilaudid per MAR with favorable results. Pt is currently on room air with sats. >90%. Lungs CTA. No edema noted. Abdomen is large, round, firm, and tender. Pt ambulates independently in the room. F/C is patent and draining clear, yellow urine at bedside to gravity. No BM thus far. Pt is NPO. Ice chips at bedside. FSBS results have been 117 and 118, neither of which have required insulin coverage per sliding scale. 20 G peripheral IV in the RT AC is patent and infusing NS @ 200 ML/HR. VSS. Call light within reach. Will continue to monitor.
--- NOTE | 2021-10-23 16:35 | HMH.ACPN2 ---
Internal Medicine - PN: Subj *Date: 10/23/21 *Time: 17:01 Interval history: 31-year-old male patient resting in bed quietly awakens to verbal stimuli. He reports he has had some increased abdominal pain, pain has been controlled with Dilaudid effectively. Discussed w/ Dr. Silvestre, GI, and he will see in Clinic, info taken and appt will be sched per . Exam Vital signs and Labs for Last 24 Hours: Temp Pulse Resp BP Pulse Ox 98.3 F 105 H 17 163/93 H 96 10/23/21 16:00 10/23/21 16:00 10/23/21 16:00 10/23/21 16:00 10/23/21 16:00 Laboratory Results - last 24 hr 10/22/21 20:23: POC Glucose 98 10/23/21 04:51: POC Glucose 98 10/23/21 08:40: Sodium 137, Potassium 4.2, Chloride 104, Carbon Dioxide 24, Anion Gap 13.2, BUN 17 D, Creatinine 1.20, Estimated Creat Clear 86, Estimated GFR 70, Est GFR ( Amer) 85, Glucose 119 H, Calcium 8.6, Total Bilirubin 0.2, AST 36 D, ALT 49 D, Alkaline Phosphatase 114, Total Protein 6.5, Albumin 3.1 L, Globulin 3.4 H, Albumin/Globulin Ratio 0.9 L, Amylase 240 H 10/23/21 08:40: WBC 8.3 D, RBC 3.86 L, Hgb 10.7 L, Hct 34.2 L, MCV 88.8, MCH 27.8, MCHC 31.3 L, RDW 13.3, Plt Count 511 H, MPV 6.7 L, Neut % (Auto) 79.6, Lymph % (Auto) 12.7, [place] % (Auto) 3.9, Eos % (Auto) 3.2, Baso % (Auto) 0.5, Neut # (Auto) 6.6, Lymph # (Auto) 1.1, [place] # (Auto) 0.3, Eos # (Auto) 0.3, Baso # (Auto) 0.0 10/23/21 08:40: Lipase 486 H 10/23/21 10:53: POC Glucose 117 H 10/23/21 16:01: POC Glucose 118 H I & O for Last 24 hours: Intake & Output 10/20/21 10/21/21 10/22/21 10/23/21 23:59 23:59 23:59 23:59 Intake Total / 25 0 / 0 41653 / 97382 Output Total 700 / 2500 3275 / 4925 3525 / 4925 2600 / 2600 Balance -675 / -2475 -3275 / -4925 7144 / 5744 -2600 / -2600 Weight 251 lb 12.8 oz 257 lb 582 lb 7.38 oz 289 lb 1.6 oz - Constitutional no acute distress - *Routine HEENT Exam Head: Present: normocephalic Eye: Present: EOMI ENT: Present: mucous membranes moist - *Routine Neck Exam Present: trachea midline. Absent: tracheal deviation - *Routine Respiratory Exam Present: CTA bilaterally. Absent: accessory muscle use - *Routine Cardiovascular Exam Present: RRR - *Routine Abdominal Exam Present: soft, normoactive bowel sounds, tenderness - *Routine Extremities Exam Present: full ROM, pulses intact. Absent: cyanosis, clubbing, calf tenderness - *Routine Skin Exam Present: intact, dry. Absent: cyanosis, erythema - *Routine Neurological Exam Present: alert, oriented X3. Absent: motor deficit - Routine Psychiatric Exam Present: normal affect, normal thought process. Absent: auditory hallucinations Assessment and Plan (1) LILIA (acute kidney injury) Status: Acute Category: Medical Code(s): N17.9 - Acute kidney failure, unspecified (2) Necrotizing pancreatitis Status: Acute Category: Medical Code(s): K85.91 - Acute pancreatitis with uninfected necrosis, unspecified (3) Obesity (BMI 30-39.9) Status: Acute Category: Medical Code(s): E66.9 - Obesity, unspecified (4) Tobacco use Status: Acute Category: Social Hx Code(s): Z72.0 - Tobacco use (5) Diabetes Status: Chronic Qualifiers: Diabetes mellitus type: type 2 Diabetes mellitus mcc insulin use: unspecified mcc insulin use status Diabetes mellitus complication status: with other specified complication Qualified Code(s): E11.69 - Type 2 diabetes mellitus with other specified complication Category: Medical Code(s): E11.9 - Type 2 diabetes mellitus without complications (6) Hypertension Status: Chronic Qualifiers: Hypertension type: primary hypertension Qualified Code(s): I10 - Essential (primary) hypertension Category: Medical Code(s): I10 - Essential (primary) hypertension (7) Thrombocytosis Status: Acute Category: Medical Code(s): D75.839 - Thrombocytosis, unspecified (8) Hyperkalemia Status: Acute Category: Medical Code(s): E87.5 - H
[2021-10-23 20:00] VITALS: BP 133/94; PULSE 113; RESP 20; TEMP 36.9; O2SAT 93
[2021-10-23 21:19] LABS: POC Glucose,Bedside 112 (70-110)
[2021-10-24] VITALS: BP 141/78; PULSE 112; RESP 21; TEMP 37; O2SAT 93
[2021-10-24 04:00] VITALS: BP 157/84; PULSE 120; RESP 20; TEMP 36.6; O2SAT 94
[2021-10-24 04:53] VITALS: BMI 39.6
--- NOTE | 2021-10-24 06:12 | PC.NURSE ---
Pt has rested on and off t/o shift. pt has c/o of pain in abdomen frequently and requested pain meds, given per MAR with relief. Watson remains in place draining light silvestre urine. No concerns at this time.
[2021-10-24 07:14] LABS: Basophils # 0.1 K/mm3 (0-0.2); Basophils % 0.6 % (0.1-2.0); Eosinophils # 0.3 K/mm3 (0.0-0.4); Eosinophils % 3.4 % (0.1-12.0); Hematocrit 35.2 % (42.0-52.0); Hemoglobin 11.2 g/dL (14.1-18.0); Lymphocytes # 1.6 K/mm3 (0.7-4.5); Lymphocytes % 15.2 % (10-50); Mean Corpuscular HGB Conc 31.9 g/dL (31.8-35.4); Mean Corpuscular Volume 87.9 fl (80-94); Mean Platelet Volume 7.6 fl (7.4-10.4); Monocytes # 0.6 K/mm3 (0.1-1.0); Monocytes % 5.9 % (1.7-9.3); Neutrophils # 7.6 K/mm3 (1.8-7.8); Neutrophils % 74.9 % (37.0-80.0); Platelet Count 582 K/mm3 (142-424); Red Blood Count 4.01 M/mm3 (4.60-6.20); Red Cell Distribution Width 13.3 % (11.5-17.5); White Blood Count 10.2 K/mm3 (4.8-10.8)
[2021-10-24 07:19] LABS: Chloride 105 mmol/L (98-107)
[2021-10-24 07:20] LABS: Potassium 4.5 mmoL/L (3.5-5.1); Sodium 137 mmol/L (136-145)
[2021-10-24 07:22] LABS: Amylase 208 U/L (30-110); Blood Urea Nitrogen 19 mg/dl (9-20)
[2021-10-24 07:23] LABS: Alanine Aminotransferase 28 U/L (12-78); Albumin Level 2.9 g/dl (3.5-5.0); Albumin/Globulin Ratio 0.9 (1.1-1.8); Alkaline Phosphatase 82 U/L (38-126); Anion Gap 15.5 mEq/L (5-15); Aspartate Amino Transferase 19 U/L (17-59); Bilirubin,Total 0.3 mg/dl (0.2-1.3); Calcium 8.6 mg/dl (8.4-10.2); Carbon Dioxide 21 mmol/L (22.0-30.0); Creatinine Clearance Estimated 152 mL/min (50-200); Estimated Glomerular Filt Rate 70 ml/min (>60); GFR (African American) 85 ML/MIN (>60); Globulin 3.2 g/dL (1.3-3.2); Glucose 122 mg/dl (74-100); Lipase 427 U/L (23-300); Total Protein,Serum 6.1 g/dl (6.3-8.2)
[2021-10-24 08:00] VITALS: BP 140/59; PULSE 108; RESP 16; TEMP 37; O2SAT 95
--- NOTE | 2021-10-24 10:00 | HMH.DCSUM ---
General - General Admission date:: 10/19/21 Discharge date: 10/24/21 HPI HPI: this patient presents to [facility] with abd pain -31-year-old male presenting with a chief complaint of epigastric abdominal pain radiating to the back with the last hour of onset. Patient reports the pain is similar to prior pain. He was seen in the emergency department here on 10/05 and evaluated with a CT scan with contrast and right upper quadrant ultrasound was found to have acute pancreatitis. Patient reports intermittent nausea and pain is worsened with breathing. Patient denies fever at home, upper respiratory symptoms, changes in GI/, blood per rectum, hematuria/dysuria. Patient had a normal bowel movement this morning. Pain medication at home has not controlled his pain. lubna is a 31-year-old male with a history of acute pancreatitis presenting for chief complaint of severe abdominal pain. Per patient, severe pain started approximately 25 minutes to presentation. Differential diagnosis includes, but is not limited to, acute pancreatitis, complication such as pseudocyst or necrotizing pancreatitis, perforated viscus, other. On initial exam, patient is hemodynamically stable. He is diaphoretic and appears to be in pain. Abdominal exam is concerning as abdomen is distended, rigid and diffusely tender. Patient was treated with 1 L of IV fluids, IV morphine, IV Zofran and p.o. Tylenol. He was evaluate CBC, CMP, lipase/amylase, lactic acid, UA and CT abdomen and pelvis with contrast. Lab work is significant for elevated lipase/amylase in comparison to prior, mildly elevated anion gap and creatinine. CT imaging shows: IMPRESSION: The findings are compatible with necrotizing pancreatitis. The areas of low attenuation in the pancreas have developed since the previous exam as well as increasing peripancreatic fluid and increasing ascites. Given the findings and potential for decompensation, attempt was made for transfer to a higher care facility without success. Patient additionally refused transfer at this time. Given this, patient was started on aggressive fluid resuscitation, pain control and admitted for further treatment of necrotizing pancreatitis. I spoke with transfer center at who placed patient on a transfer list. Patient was started on cefepime IV. pt was admitted with ivf and abx with pain meds - discussed with pt need for transfer and pt understood Hospital Course Hospital Course: Laboratory Tests 10/19/21 10/19/21 10/19/21 11:45 11:45 11:45 WBC 18.5 H RBC 4.72 Hgb 13.4 L Hct 41.7 L MCV 88.3 MCH 28.4 MCHC 32.2 RDW 13.9 Plt Count 1136 H* MPV 9.3 Neut % (Auto) 74.6 Lymph % (Auto) 18.4 [place] % (Auto) 3.9 Eos % (Auto) 2.3 Baso % (Auto) 0.7 Neut # (Auto) 13.8 H Lymph # (Auto) 3.4 [place] # (Auto) 0.7 Eos # (Auto) 0.4 Baso # (Auto) 0.1 Total Counted 100 Neutrophils % (Manual) 81 H Lymphocytes % (Manual) 17 Monocytes % (Manual) 2 Nucleated RBCs 2 Platelet Estimate Moderate increase RBC Morphology Hypochromasia 1+ Anisocytosis 1+ Macrocytosis 1+ Sodium 135 L Potassium 5.9 H Chloride 103 Carbon Dioxide 21 L Anion Gap 16.9 H BUN 17 Creatinine 1.40 H Estimated Creat Clear 117 Estimated GFR 59 Est GFR ( Amer) 71 Glucose 234 H POC Glucose Lactate 1.8 Calcium 9.6 Magnesium Total Bilirubin 0.6 AST 48 ALT 39 Alkaline Phosphatase 93 Total Protein 7.7 Albumin 4.0 Globulin 3.7 H Albumin/Globulin Ratio 1.1 Amylase 327 H* Lipase 743 H SARS-CoV-2 (PCR) Influenza A Untype (PCR) Influenza Type B (PCR) 10/19/21 10/20/21 10/20/21 15:46 06:10 06:10 WBC 11.5 H D RBC 4.41 L Hgb 12.4 L Hct 37.5 L MCV 84.9 MCH 28.2 MCHC 33.2 RDW 13.8 Plt Count 662 H D MPV 8.1 Neut % (Auto) 87.0 H Lymph % (Auto)
[2021-10-24 11:39] LABS: POC Glucose,Bedside 129 (70-110)
[2021-10-24 12:25] LABS: POC Glucose,Bedside 131 (70-110)
--- NOTE | 2021-10-24 13:12 | PC.NURSE ---
PT IS BEING DISCHARGED TODAY WITH PAIN MEDICATION AND LOW INTENSITY SLIDING SCALE INSULIN. PT RECEIVED DISCHARGE INSTRUCTIONS ON MEDICATION ADMINISTRATION AND FOLLOW UP APPOINTMENTS. PT HAS AN MRI SCHEDULED AT ON 11/06 @ 11:15 AND A FOLLOW UP WITH @2853. PT WAS INSTRUCTED ABOUT HOW IMPORTANT IT WAS TO MAKE SURE HE MADE IT TO THESE APPOINTMENTS. RAHUL FROM 'S OFFICE STATED SHE WOULD CALL PT AND GO OVER EVERYTHING WITH HIM AGAIN.
== END 2021-10-24 13:20 | disposition home or self-care (01) | DRG 439 ==
LOC: ER 11:23 → 2ND 19:17
PROVIDERS: Nurse Practitioner Family; Admitting Provider Emergency Medicine; Emergency Provider Emergency Medicine; PCP Emergency Medicine; Visit Provider Emergency Medicine
DX: K85.91 Acute pancreatitis with uninfected necrosis, unspecified (principal); N17.9 Acute kidney failure, unspecified; D75.839 Thrombocytosis, unspecified; E87.5 Hyperkalemia; E11.9 Type 2 diabetes mellitus without complications; F17.210 Nicotine dependence, cigarettes, uncomplicated; I10 Essential (primary) hypertension; Z20.822 Contact with and (suspected) exposure to COVID-19; F17.220 Nicotine dependence, chewing tobacco, uncomplicated; J45.909 Unspecified asthma, uncomplicated; E66.9 Obesity, unspecified; Z68.39 Body mass index [BMI] 39.0-39.9, adult; Z79.84 Long term (current) use of oral hypoglycemic drugs
CPT/HCPCS: 36415; 74177; 74183; 76376; 80048; 80053; 82150; 82962; 83605; 83690; 83735; 85007; 85025; 94640; 94760; 94761; 96365; 96367; 96375; 99284; A9576; C9803; J1335; J2405; Q9967; U0003; U0005

== ENCOUNTER 2022-03-18 13:45 | Emergency (ER) | payer MEDICAID, SELFPAY ==
[2022-03-18 13:46] VITALS: BP 145/116; PULSE 89; RESP 16; TEMP 36.9; O2SAT 97; BMI 32.8
[2022-03-18 14:52] LABS: Microscopic, Urine URINE MICROSCOPIC (MICROSCOPIC)
[2022-03-18 14:54] LABS: Basophils # 0.2 K/mm3 (0-0.2); Basophils % 2.1 % (0.1-2.0); Eosinophils # 0.4 K/mm3 (0.0-0.4); Eosinophils % 4.4 % (0.1-12.0); Hematocrit 42.4 % (42.0-52.0); Hemoglobin 13.9 g/dL (14.1-18.0); Lymphocytes # 2.2 K/mm3 (0.7-4.5); Mean Corpuscular HGB Conc 32.8 g/dL (31.8-35.4); Mean Corpuscular Hemoglobin 26.7 pg (27.0-31.2); Mean Corpuscular Volume 81.3 fl (80-94); Mean Platelet Volume 7.8 fl (7.4-10.4); Monocytes # 0.3 K/mm3 (0.1-1.0); Monocytes % 3.3 % (1.7-9.3); Neutrophils # 5.6 K/mm3 (1.8-7.8); Neutrophils % 65.2 % (37.0-80.0); Platelet Count 207 K/mm3 (142-424); Red Blood Count 5.22 M/mm3 (4.60-6.20); White Blood Count 8.6 K/mm3 (4.8-10.8)
[2022-03-18 14:57] LABS: Chloride 106 mmol/L (98-107)
[2022-03-18 14:58] LABS: Potassium 4.1 mmoL/L (3.5-5.1); Sodium 140 mmol/L (136-145)
[2022-03-18 15:00] LABS: Alanine Aminotransferase 20 U/L (12-78); Aspartate Amino Transferase 19 U/L (17-59); Blood Urea Nitrogen 10 mg/dl (9-20); Creatinine Clearance Estimated 125 mL/min (50-200); Estimated Glomerular Filt Rate 70 ml/min (>60); GFR (African American) 84 ML/MIN (>60)
--- NOTE | 2022-03-18 15:00 | XR_ITS ---
FINAL REPORT CLINICAL HISTORY: Epigastric pain FINDINGS: Two views of the chest were obtained. The heart size and pulmonary vascularity are within normal limits. The mediastinum is normal. No acute pulmonary abnormality is identified. There is no pneumothorax. The bony thorax is intact. IMPRESSION: No active cardiopulmonary disease. Reviewed, Interpreted and Dictated by Vasiliy Mcneill III, MD Transcribed by Wendy Barrera Authenticated by Vasiliy Mcneill III, MD on 03/18/2022 04:24:14 PM [facility]
[2022-03-18 15:01] LABS: Albumin Level 3.7 g/dl (3.5-5.0); Albumin/Globulin Ratio 1.3 (1.1-1.8); Alkaline Phosphatase 64 U/L (38-126); Anion Gap 10.1 mEq/L (5-15); Bilirubin,Total 0.3 mg/dl (0.2-1.3); Carbon Dioxide 28 mmol/L (22.0-30.0); Globulin 2.8 g/dL (1.3-3.2); Glucose 258 mg/dl (74-100); Lipase 187 U/L (23-300); Total Protein,Serum 6.5 g/dl (6.3-8.2)
[2022-03-18 15:09] LABS: Appearance,Urine CLEAR (Clear); Bilirubin,Urine Negative (Negative); Blood, Urine 1+ (Negative); Color,Urine YELLOW (Yellow); Glucose,Urine (UA) TRACE (Negative); Ketones,Urine Negative (Negative); Leukocyte Esterase,Urine Negative (Negative); Nitrate,Urine Negative (Negative); Protein,Urine 3+ (Negative); Specific Gravity, Urine 1.025 (1.005-1.030); Urobilinogen,Urine 0.2 EU/dl (0.2)
[2022-03-18 15:25] LABS: D-Dimer 0.53 ug/mL (0.0-0.5)
[2022-03-18 15:38] LABS: Troponin I < 0.01 ng/ml (0.00-0.034)
[2022-03-18 15:40] LABS: Squamous Epithelial Cell,Urine Occasional #/hpf (0-5)
[2022-03-18 16:30] VITALS: BP 139/91; PULSE 65; O2SAT 94
--- NOTE | 2022-03-18 16:47 | ECG_ITS ---
APPROVED REPORT Exam: Resting ECG HR:66 bpm ECG Measurements Heart Rate 66 AXES VT 173 P 39 QRSd 88 QRS 47 QT 405 T 72 QTc 418 Conclusion SINUS RHYTHM NORMAL ECG UNCONFIRMED REPORT Electronically signed by : Sergio Quintanilla MD 03/19/2022 21:28:36
--- NOTE | 2022-03-18 17:02 | PC.NURSE ---
JUN Beebe rounded on patient; no needs
[2022-03-18 17:03] VITALS: BP 180/98; PULSE 78; O2SAT 96
--- NOTE | 2022-03-18 18:31 | PC.NURSE ---
DR. CONTRERAS PAGED AT THIS TIME
--- NOTE | 2022-03-18 18:44 | PC.NURSE ---
ATTEMPTED TO PAGE DR. CONTRERAS X 3. WILL CONTINUE TO PAGE
--- NOTE | 2022-03-18 19:04 | PC.NURSE ---
MD at bs, pt wanting to sign out AMA
[2022-03-18 19:10] VITALS: BP 138/84; PULSE 72; RESP 18; TEMP 36.9; O2SAT 97
--- NOTE | 2022-03-18 22:15 | HMH.EDGENADL ---
ED Disposition Clinical Impression: Left against medical advice Disposition: Left Against Medical Advice Condition on Discharge: Undetermined Instructions: DI for Acute Abdominal Pain Referrals: Kimani Tavarez MD [Primary Care Provider] - - Critical Care Critical Care Time: No Attestation: On 03/18/22, the high probability of a clinically significant, sudden or life threatening deterioration of the following system(s) required my full and direct attention, intervention and personal management. The time I documented below is in addition to time spent performing reported procedures but includes the following listed in this critical care notation. Medical Decision Making - Paddy Inquiry Pt receiving controlled substance: No Vital Signs: 03/18/22 13:46 03/18/22 16:30 03/18/22 17:03 Temperature 98.4 F Temperature Source Oral Pulse Rate 65 78 Pulse Rate [Right Radial] 89 Respiratory Rate 16 Blood Pressure 139/91 H 180/98 H Blood Pressure [Right Arm] 145/116 H Blood Pressure Mean [Right Arm] 125 Blood Pressure Source Automatic Cuff Automatic Cuff Blood Pressure Source [Right Arm] Automatic Cuff Blood Pressure Position Sitting Sitting Blood Pressure Position [Right Arm] Sitting 02 Sat by Pulse Oximetry 97 94 L 96 Oxygen Delivery Method Room Air Room Air Room Air 03/18/22 19:10 Temperature 98.4 F Temperature Source Pulse Rate 72 Pulse Rate [Right Radial] Respiratory Rate 18 Blood Pressure 138/84 Blood Pressure [Right Arm] Blood Pressure Mean [Right Arm] Blood Pressure Source Blood Pressure Source [Right Arm] Blood Pressure Position Blood Pressure Position [Right Arm] 02 Sat by Pulse Oximetry Oxygen Delivery Method - Lab Data Lab Results 03/18/22 14:35: WBC 8.6, RBC 5.22, Hgb 13.9 L, Hct 42.4, MCV 81.3, MCH 26.7 L, MCHC 32.8, RDW 18.0 H, Plt Count 207, MPV 7.8, Neut % (Auto) 65.2, Lymph % (Auto) 25.0, [place] % (Auto) 3.3, Eos % (Auto) 4.4, Baso % (Auto) 2.1 H, Neut # (Auto) 5.6, Lymph # (Auto) 2.2, [place] # (Auto) 0.3, Eos # (Auto) 0.4, Baso # (Auto) 0.2 03/18/22 14:35: Sodium 140, Potassium 4.1, Chloride 106, Carbon Dioxide 28, Anion Gap 10.1, BUN 10, Creatinine 1.20, Estimated Creat Clear 125, Estimated GFR 70, Est GFR ( Amer) 84, Glucose 258 H, Calcium 9.0, Total Bilirubin 0.3, AST 19, ALT 20, Alkaline Phosphatase 64, Total Protein 6.5, Albumin 3.7, Globulin 2.8, Albumin/Globulin Ratio 1.3, Lipase 187 03/18/22 14:35: D-Dimer 0.53 H 03/18/22 14:35: Troponin I < 0.01 03/18/22 14:40: Urine Color Yellow, Urine Appearance Clear, Urine pH 6.0, Ur Specific [place] 1.025, Urine Protein 3+, Urine Glucose (UA) Trace, Urine Ketones Negative, Urine Blood 1+, Urine Nitrate Negative, Urine Bilirubin Negative, Urine Urobilinogen 0.2, Ur Leukocyte Esterase Negative, Urine RBC 3-5, Urine WBC None, Ur Squamous Epith Cells Occasional, Urine Bacteria None Result diagrams: 03/18/22 14:35 03/18/22 14:35 Orders (Tests/Meds): ED MEDICATIONS Discontinued Medications Generic Name Dose Route Start Last Admin Trade Name Freq PRN Reason Stop Dose Admin Sodium Chloride 1,000 mls @ 999 mls/hr 03/18/22 14:40 03/18/22 14:55 Sod Chlor 0.9% 1000ml Bag IV 03/18/22 15:40 999 mls/hr .Q1H1M ONE Administration Ketorolac Tromethamine 30 mg 03/18/22 14:39 03/18/22 14:54 Ketorolac 30mg/Ml Vial IV 03/18/22 14:40 30 mg ONCE ONE Administration Morphine Sulfate 4 mg 03/18/22 15:14 03/18/22 17:02 Morphine 4mg/Ml Syringe IV 03/18/22 15:15 4 mg ONCE ONE Administration Ondansetron HCl 4 mg 03/18/22 14:39 03/18/22 14:55 Ondansetron 4mg/2ml Vial IV 03/18/22 14:40 4 mg ONCE ONE Administration Sodium Chloride 10 ml 03/18/22 14:39 Sodium Chloride 0.9% 10ml Flush Syringe IV 04/17/22 14:38 NEEDED PRN Maintain IV Site Medical Decision Narrative: 32-year-old male presenting to the emergency department with 1 week history of left po
== END 2022-03-18 19:13 | disposition left against medical advice (07) ==
PROVIDERS: Emergency Provider Student in an Organized Health Care Education/Training Program; PCP Emergency Medicine
DX: R07.81 Pleurodynia (principal); M54.50 Low back pain, unspecified; R10.32 Left lower quadrant pain; R79.1 Abnormal coagulation profile; I10 Essential (primary) hypertension; K85.90 Acute pancreatitis without necrosis or infection, unspecified; E11.9 Type 2 diabetes mellitus without complications; J45.909 Unspecified asthma, uncomplicated; F17.290 Nicotine dependence, other tobacco product, uncomplicated; Z79.1 Long term (current) use of non-steroidal anti-inflammatories (NSAID); Z79.4 Long term (current) use of insulin; Z79.51 Long term (current) use of inhaled steroids; Z79.82 Long term (current) use of aspirin; Z79.899 Other long term (current) drug therapy; Z88.0 Allergy status to penicillin
CPT/HCPCS: 71046; 80053; 81001; 83690; 84484; 85025; 85378; 93005; 96361; 96374; 96375; 99285; J2405

== ENCOUNTER 2022-04-18 15:26 | Emergency (ER) | payer MEDICAID, SELFPAY ==
[2022-04-18 15:40] VITALS: BP 135/74; PULSE 90; RESP 22; TEMP 36.5; O2SAT 98; BMI 34.8
[2022-04-18 16:10] VITALS: BP 135/74; PULSE 90; RESP 22; TEMP 36.5; O2SAT 98
--- NOTE | 2022-04-18 16:10 | HMH.EDUTC ---
[facility] [place] Clinical Impression: Exposure to COVID-19 virus Disposition: Home, Self-Care Condition on Discharge: Good Instructions: COVID-19: Testing and Tracing Additional Instructions: covid swab was sent to lab, call tomorrow for results. self isolate until test results are known to be negative Referrals: Kimani Tavarez MD [Primary Care Provider] - Time of Disposition: 16:13 Medical Decision Making - Paddy Inquiry Pt receiving controlled substance: No Vital Signs: 04/18/22 15:40 Temperature 97.7 F Temperature Source Temporal Artery Scan Pulse Rate [Right Brachial] 90 Respiratory Rate 22 Blood Pressure [Right Arm] 135/74 Blood Pressure Mean [Right Arm] 94 Blood Pressure Source [Right Arm] Automatic Cuff Blood Pressure Position [Right Arm] Sitting 02 Sat by Pulse Oximetry 98 Oxygen Delivery Method Room Air Orders (Tests/Meds): ORDERS Category Date Time Status Covid-19 Nasal PCR ([facility]) Routine Lab 04/18/22 15:40 Received [facility] [place] HPI - General Chief complaint: Urgent [facility] Stated complaint: covid test, congestion and cough Time Seen by Provider: 04/18/22 16:10 Mode of Arrival: Ambulatory Source of Information: Patient Limitations: No Limitations Description of Symptoms (Recalled from Triage Doc. by RN): COVID TEST D/T EXPOSURE HEENT Symptoms (Recalled from RN notes): No Resp Symptoms (Recalled from RN notes): No Skin Symptoms (Recalled from RN notes): No MS Symptoms (Recalled from RN notes): No Functional Status (Recalled from RN notes): WNL - History of Present Illness Provider Complaint: 32 yr old male presents for covid test due to exposer. pt states no symptoms - Related Data Home Medications Medication Instructions Recorded Confirmed Atorvastatin Calcium [Lipitor 20mg 20 mg PO HS 10/05/21 10/21/21 Tab] lisinopriL [Lisinopril] 10 mg PO DAILY 10/05/21 10/19/21 Dicyclomine HCl [Bentyl 10mg 10 mg PO TID 10/19/21 10/19/21 capsule] Previous Rx's Medication Instructions Recorded hydromorphone 2 mg tablet 2 mg PO Q6H PRN #56 tab 10/24/21 cholecalciferol (vitamin D3) 50 50 mcg PO DAILY #90 cap 10/30/21 mcg (2,000 unit) capsule hydrochlorothiazide 25 mg tablet 25 mg PO DAILY #90 tab 10/30/21 loratadine 10 mg disintegrating 10 mg PO DAILY #90 tab 10/30/21 tablet ondansetron HCl 4 mg tablet 4 mg PO Q8H PRN #30 tab 11/25/21 insulin lispro 100 unit/mL See Rx Instructions .ROUTE 12/13/21 subcutaneous pen .COMPLEX #15 ml aspirin 81 mg tablet,delayed See Rx Instructions .ROUTE 03/25/22 release .COMPLEX #30 tab albuterol sulfate 90 mcg/actuation 2 puff IH Q4-6H PRN #8.5 g 04/11/22 aerosol inhaler Allergies Allergy/AdvReac Type Severity Reaction Status Date / Time Penicillins [PENICILLINS] Allergy Unknown Verified 10/19/21 12:39 - Worker's Comp Is this a Worker's Comp case?: No [facility] History - Hepatitis A Screen Attestation statement:: This patient has been screened for Hepatitis A risk factors. I have reviewed the patient's past medical history: Yes Medical History: Reports:: Asthma, Diabetes Mellitus Type 2, Hypertension Denies:: Cancer, Diabetes Mellitus Type 1, MRSA Other Surgeries: Yes: Hernia Repair Amputation: No Comment: One kidney (L) - Social History Smoking Status: Current some day smoker Tobacco Type: cigarettes, smokeless tobacco # Packs/Day (cigarettes): 1 Alcohol Intake: never Alcohol Intake Frequency:: holidays/special occasions only Substance Use Type: denies use Occupational Status: employed Housing: house Household Members: spouse Family Hx:: Diabetes ROS Obtained: Yes Systems reviewed as appropriate & no additional complaints - Constitutional Constitutional: Reports system reviewed and no additional complaints, except as docu, Denies fever(s) - Eyes Eyes: Reports system reviewed and no additional complaints, except as docu, Denies dry eyes - ENT Ears, Nose, Mouth, and Throat: Reports system re
== END 2022-04-18 16:30 | disposition home or self-care (01) ==
PROVIDERS: Emergency Provider Nurse Practitioner Family; PCP Emergency Medicine
DX: Z03.89 Encounter for observation for other suspected diseases and conditions ruled out (principal); Z20.822 Contact with and (suspected) exposure to COVID-19; J45.909 Unspecified asthma, uncomplicated; I10 Essential (primary) hypertension; E11.9 Type 2 diabetes mellitus without complications; F17.290 Nicotine dependence, other tobacco product, uncomplicated; Z79.1 Long term (current) use of non-steroidal anti-inflammatories (NSAID); Z79.4 Long term (current) use of insulin; Z79.82 Long term (current) use of aspirin; Z88.1 Allergy status to other antibiotic agents; Z79.51 Long term (current) use of inhaled steroids
CPT/HCPCS: 99213; C9803; G0463; U0003; U0005

== ENCOUNTER 2022-05-17 12:48 | Emergency (ER) | payer MEDICAID, SELFPAY ==
[2022-05-17 13:20] VITALS: BP 157/84; PULSE 88; RESP 16; TEMP 36.9; O2SAT 97; BMI 34.9
--- NOTE | 2022-05-17 13:21 | HMH.EDUTC ---
[facility] – [place] Disposition Clinical Impression: Otalgia of right ear Otitis media Qualifiers: Otitis media type: suppurative Chronicity: acute Laterality: bilateral Recurrence: non-recurrent Spontaneous tympanic membrane rupture: without spontaneous rupture Qualified Code(s): H66.003 - Acute suppurative otitis media without spontaneous rupture of ear drum, bilateral Disposition: Home, Self-Care Condition on Discharge: Good Instructions: Middle Ear Infection, How to Use Ear Drops Additional Instructions: Drink plenty of fluids. Take tylenol or ibuprofen for pain or fever. Take the medications as directed. Follow up with your regular doctor. GO TO THE ER FOR ANY WORSENING SYMPTOMS Prescriptions: Ciprofloxacin HCl/Dexameth [Cipro 0.3%-Dex 0.1% Otic Susp 7.5mL] 2 drops EAR-RIGHT BID 7 Days #1 ml Transmission Status: Received by [facility] predniSONE [Deltasone 10mg tablet] 10 mg PO BID 3 Days #6 tab Transmission Status: Received by [facility] Azithromycin [Z-Westley 250mg Tab*] 250 mg PO UD DOSE PK #6 tab Transmission Status: Received by [facility] Referrals: Kimani Tavarez MD [Primary Care Provider] - Time of Disposition: 14:13 Medical Decision Making - Medical Records Medical records reviewed: No: I reviewed the patient's medical records. - Paddy Inquiry Pt receiving controlled substance: No Vital Signs: 05/17/22 13:20 05/17/22 14:16 Temperature 98.5 F 98.5 F Temperature Source Oral Pulse Rate 88 Pulse Rate [Left] 88 Respiratory Rate 16 16 Blood Pressure 157/84 H Blood Pressure [Right Arm] 157/84 H Blood Pressure Mean [Right Arm] 108 02 Sat by Pulse Oximetry 97 - Lab Data Lab results reviewed: Yes: I reviewed the patient's lab results. [facility] [place] HPI - General Stated complaint: right ear pain/pressure Time Seen by Provider: 05/17/22 13:21 - History of Present Illness Provider Complaint: He states that he has had right ear pain for the past 4 days. - Related Data Home Medications Medication Instructions Recorded Confirmed Atorvastatin Calcium [Lipitor 20mg 20 mg PO HS 10/05/21 10/21/21 Tab] lisinopriL [Lisinopril] 10 mg PO DAILY 10/05/21 10/19/21 Dicyclomine HCl [Bentyl 10mg 10 mg PO TID 10/19/21 10/19/21 capsule] Previous Rx's Medication Instructions Recorded hydromorphone 2 mg tablet 2 mg PO Q6H PRN #56 tab 10/24/21 cholecalciferol (vitamin D3) 50 50 mcg PO DAILY #90 cap 10/30/21 mcg (2,000 unit) capsule hydrochlorothiazide 25 mg tablet 25 mg PO DAILY #90 tab 10/30/21 loratadine 10 mg disintegrating 10 mg PO DAILY #90 tab 10/30/21 tablet ondansetron HCl 4 mg tablet 4 mg PO Q8H PRN #30 tab 11/25/21 insulin lispro 100 unit/mL See Rx Instructions .ROUTE 12/13/21 subcutaneous pen .COMPLEX #15 ml aspirin 81 mg tablet,delayed See Rx Instructions .ROUTE 03/25/22 release .COMPLEX #30 tab albuterol sulfate 90 mcg/actuation 2 puff IH Q4-6H PRN #8.5 g 04/11/22 aerosol inhaler Azithromycin [Z-Westley 250mg Tab*] 250 mg PO UD DOSE PK #6 tab 05/17/22 Ciprofloxacin HCl/Dexameth [Cipro 2 drops EAR-RIGHT BID 7 Days #1 ml 05/17/22 0.3%-Dex 0.1% Otic Susp 7.5mL] predniSONE [Deltasone 10mg tablet] 10 mg PO BID 3 Days #6 tab 05/17/22 Allergies Allergy/AdvReac Type Severity Reaction Status Date / Time Penicillins [PENICILLINS] Allergy Unknown Verified 05/17/22 13:22 [facility] History - Hepatitis A Screen Attestation statement:: This patient has been screened for Hepatitis A risk factors. I have reviewed the patient's past medical history: Yes Medical History: Reports:: Asthma, Diabetes Mellitus Type 2, Hypertension Denies:: Cancer, Diabetes Mellitus Type 1, MRSA Other Surgeries: Yes: Hernia Repair Amputation: No Comment: One kidney (L) - Social History Smoking Status: Current some day smoker Tobacco Type: cigarettes, smokeless tobacco # Packs/Day (cigarettes): 1 Alcohol Intake: never Alcohol Intake Frequency:: holidays/sp
[2022-05-17 14:16] VITALS: BP 157/84; PULSE 88; RESP 16; TEMP 36.9
== END 2022-05-17 14:21 | disposition home or self-care (01) ==
PROVIDERS: Emergency Provider Nurse Practitioner Family; PCP Emergency Medicine
DX: H66.003 Acute suppurative otitis media without spontaneous rupture of ear drum, bilateral (principal)
CPT/HCPCS: 99212; G0463

== ENCOUNTER 2022-09-04 08:43 | Emergency (ER) | payer MEDICAID, SELFPAY ==
[2022-09-04 09:00] VITALS: BP 202/107; PULSE 83; RESP 20; TEMP 36.7; O2SAT 97; BMI 33.0
--- NOTE | 2022-09-04 09:14 | EXP.UTC ---
Discharge Plan Disposition Patient Disposition: Home, Self-Care Condition: Good Prescriptions Prescriptions: New colchicine 0.6 mg capsule 0.6 mg PO BID Qty: 6 0RF Rx Instructions: Take 1.2mg (two 0.6mg tablets) now then wait one hour and take take (1) 0.6mg tablet then you may repeat repeat in 72hrs No Action hydromorphone [Dilaudid] 2 mg tablet 2 mg PO Q6H PRN (Reason: pain) Qty: 56 0RF cholecalciferol (vitamin D3) 50 mcg (2,000 unit) capsule 50 mcg PO DAILY Qty: 90 3RF loratadine 10 mg tablet,disintegrating 10 mg PO DAILY Qty: 90 3RF hydrochlorothiazide 25 mg tablet 25 mg PO DAILY Qty: 90 3RF ondansetron HCl 4 mg tablet 4 mg PO Q8H PRN (Reason: nausea and vomiting) Qty: 30 0RF insulin lispro [Humalog KwikPen Insulin] 100 unit/mL insulin pen See Rx Instructions .ROUTE .COMPLEX Qty: 15 3RF Dose Instruction: inject SUBCUTANEOUSLY DIRECTED PER sliding scale - max units PER DAY = 30 units Rx Instructions: inject SUBCUTANEOUSLY DIRECTED PER sliding scale - max units PER DAY = 30 units aspirin 81 mg tablet,delayed release (DR/EC) See Rx Instructions .ROUTE .COMPLEX Qty: 30 5RF Dose Instruction: TAKE ONE TABLET BY MOUTH EVERY DAY Rx Instructions: TAKE ONE TABLET BY MOUTH EVERY DAY albuterol sulfate [ProAir HFA] 90 mcg/actuation HFA aerosol inhaler See Rx Instructions .ROUTE .COMPLEX Qty: 8.5 0RF Dose Instruction: INHALE TWO PUFFS BY MOUTH EVERY 4 TO 6 HOURS NEEDED FOR SHORTNESS OF BREATH OR wheezing Rx Instructions: INHALE TWO PUFFS BY MOUTH EVERY 4 TO 6 HOURS NEEDED FOR SHORTNESS OF BREATH OR wheezing ciprofloxacin-dexamethasone 7.5 ML bottle 2 drops EAR-RIGHT BID 7 Days Qty: 1 0RF prednisone 10 MG tablet 10 mg PO BID 3 Days Qty: 6 0RF azithromycin 250 MG tablet 250 mg PO UD DOSE PK Qty: 6 0RF Rx Instructions: Take two (2) tablets today, then one (1) tablet days #2 thru #5 atorvastatin 20 MG tablet 20 mg PO HS lisinopril 10 MG tablet 10 mg PO DAILY dicyclomine 10 MG capsule 10 mg PO TID Referrals Follow up/Referrals: Kimani Tavarez MD [Primary Care Provider] - See instructions Activity Restrictions/Add. Instructions Additional Instructions/Restrictions: Take medication as directed Follow up with your Family Doctor for reevaluation of your blood pressure Return if needed Straight to ER if any life threatening symptoms Clinical Impressions Clinical Impression: Gout flare Qualifiers: Gout site: knee Gout etiology: unspecified cause Laterality: right Qualified Code(s): M10.9 - Gout, unspecified Stand Alone Forms Stand Alone Forms: Work/School Release Instructions Patient Instructions: Gout, DI for Gout Discharge ED [place] Gunjan Del[place] [facility] [place] General Stated complaint: RT Knee pain w/weakness, No accident Time Seen by Provider: 09/04/22 09:14 History of Present Illness Provider Complaint: Patient states that he has been having pain and swelling in his right knee States that he hasnt done anything to hurt it and feels like it did when he had gout States that he came in to get checked for gout Related Data Home Medications Medication Instructions Recorded Confirmed atorvastatin 20 mg tablet 20 mg PO HS Cholesterol 10/05/21 10/21/21 lisinopril 10 mg tablet 10 mg PO DAILY Hypertension 10/05/21 10/19/21 dicyclomine 10 mg capsule 10 mg PO TID stomach 10/19/21 10/19/21 Previous Rx's Medication Instructions Recorded hydromorphone 2 mg tablet 2 mg PO Q6H PRN pain #56 tabs 10/24/21 (Dilaudid) cholecalciferol (vitamin D3) 50 50 mcg PO DAILY Supplement #90 caps 10/30/21 mcg (2,000 unit) capsule hydrochlorothiazide 25 mg tablet 25 mg PO DAILY Fluid #90 tabs 10/30/21 loratadine 10 mg disintegrating 10 mg PO DAILY Allergy symptoms 10/30/21 tablet #90 tabs ondansetron HCl 4 mg tablet 4 mg PO Q8H PRN nausea and 11/25/21 vomiting #30 tabs insulin
[2022-09-04 09:36] LABS: Uric Acid 7.3 mg/dl (3.5-8.5)
[2022-09-04 09:50] VITALS: BP 202/107; PULSE 83; RESP 20; TEMP 36.7; O2SAT 97
== END 2022-09-04 10:18 | disposition home or self-care (01) ==
PROVIDERS: Emergency Provider Nurse Practitioner; PCP Emergency Medicine
DX: M25.561 Pain in right knee (principal); M25.461 Effusion, right knee; R53.1 Weakness; M10.9 Gout, unspecified; R11.2 Nausea with vomiting, unspecified; I10 Essential (primary) hypertension; J45.909 Unspecified asthma, uncomplicated; F17.290 Nicotine dependence, other tobacco product, uncomplicated; Z79.4 Long term (current) use of insulin; Z79.52 Long term (current) use of systemic steroids; Z79.82 Long term (current) use of aspirin; Z79.899 Other long term (current) drug therapy
CPT/HCPCS: 84550; 96372; 99213; G0463

== ENCOUNTER 2022-12-08 22:46 | Emergency (ER) | payer MEDICAID, SELFPAY ==
[2022-12-08 22:47] VITALS: BP 149/87; PULSE 121; RESP 16; TEMP 38.4; O2SAT 97; BMI 33.0
[2022-12-08 22:50] VITALS: BMI 33.0
--- NOTE | 2022-12-08 22:51 | CT_ITS ---
PROCEDURE INFORMATION: Exam: CT Abdomen And Pelvis Without Contrast Exam date and time: 12/08/2022 11:04 PM Age: 32 years old Clinical indication: Abdominal pain; Flank; Left; Additional info: Lt flank pain TECHNIQUE: Imaging protocol: Computed tomography of the abdomen and pelvis without contrast. Radiation optimization: All CT scans at this facility use at least one of these dose optimization techniques: automated exposure control; mA and/or kV adjustment per patient size (includes targeted exams where dose is matched to clinical indication); or iterative reconstruction. Other protocol: This patient has received 0 known CTs and 0 known cardiac nuclear medicine studies in the 12 months prior to the current study. COMPARISON: MR ABDOMEN WO/W CON 10/23/2021 11:48 AM FINDINGS: Liver: There is ill-defined fatty stranding and mild lymphadenopathy in the jose raul hepatis. Liver itself appears unremarkable. Gallbladder and bile ducts: Normal. No calcified stones. No ductal dilation. Pancreas: Normal. No ductal dilation. Spleen: Normal. No splenomegaly. Adrenal glands: Normal. No mass. Kidneys and ureters: There is significant left renal atrophy. Stomach and bowel: There is a tubular radiopaque density measuring 3 cm in length in the gastric fundus suggesting ingested foreign body. Appendix: No evidence of appendicitis. Intraperitoneal space: Unremarkable. No free air. No significant fluid collection. Vasculature: Unremarkable. No abdominal aortic aneurysm. Lymph nodes: Mild jose raul hepatis lymphadenopathy. Urinary bladder: Unremarkable as visualized. Reproductive: Unremarkable as visualized. Bones/joints: Unremarkable. No acute fracture. Soft tissues: Unremarkable. IMPRESSION: 1. Ill-defined fatty stranding and mild lymphadenopathy in the jose raul hepatis. This could be due to localized inflammation such as pancreatitis, cholecystitis or cholangitis 2. Apparent ingested foreign body gastric fundus.
--- NOTE | 2022-12-08 22:51 | XR_ITS ---
PROCEDURE INFORMATION: Exam: XR Chest Exam date and time: 12/08/2022 10:51 PM Age: 32 years old Clinical indication: Pain; Chest pressure; Additional info: Cp TECHNIQUE: Imaging protocol: Radiologic exam of the chest. Views: 2 views. COMPARISON: CR XR CHEST 2V 03/18/2022 3:08 PM FINDINGS: Lungs: Unremarkable. No consolidation. Pleural spaces: Unremarkable. No pleural effusion. No pneumothorax. Heart/Mediastinum: Unremarkable. No cardiomegaly. Bones/joints: Unremarkable. IMPRESSION: No acute findings.
[2022-12-08 23:00] LABS: Basophils # 0.1 K/mm3 (0-0.2); Basophils % 0.7 % (0.1-2.0); Eosinophils # 0.3 K/mm3 (0.0-0.4); Eosinophils % 2.1 % (0.1-12.0); Hematocrit 38.6 % (42.0-52.0); Hemoglobin 12.9 g/dL (14.1-18.0); Lymphocytes # 1.9 K/mm3 (0.7-4.5); Lymphocytes % 13.2 % (10-50); Mean Corpuscular HGB Conc 33.4 g/dL (31.8-35.4); Mean Corpuscular Hemoglobin 28.5 pg (27.0-31.2); Mean Corpuscular Volume 85.2 fl (80-94); Mean Platelet Volume 8.8 fl (7.4-10.4); Monocytes # 0.6 K/mm3 (0.1-1.0); Neutrophils # 11.3 K/mm3 (1.8-7.8); Platelet Count 219 K/mm3 (142-424); Red Blood Count 4.53 M/mm3 (4.60-6.20); Red Cell Distribution Width 14.5 % (11.5-17.5); White Blood Count 14.1 K/mm3 (4.8-10.8)
--- NOTE | 2022-12-08 23:01 | ECG_ITS ---
APPROVED REPORT Exam: Resting ECG HR:117 bpm ECG Measurements Heart Rate 117 AXES MT 163 P 81 QRSd 94 QRS 77 QT 323 T 90 QTc 393 Conclusion SINUS TACHYCARDIA MODERATE ST DEPRESSION [0.05+ mV ST DEPRESSION] ABNORMAL ECG UNCONFIRMED REPORT Electronically signed by : Sergio Quintanilla MD 12/09/2022 21:12:00
[2022-12-08 23:02] LABS: Microscopic, Urine URINE MICROSCOPIC (MICROSCOPIC)
[2022-12-08 23:02] LABS: Coronavirus 19, PCR Not Detected (NotDetected); Influenza A, PCR Not Detected (NotDetected); Influenza B, PCR Not Detected (NotDetected)
--- NOTE | 2022-12-08 23:08 | PC.NURSE ---
Pt back in room from RAD
[2022-12-08 23:09] LABS: Alanine Aminotransferase 17 U/L (12-78); Albumin Level 3.7 g/dl (3.5-5.0); Alkaline Phosphatase 93 U/L (38-126); Anion Gap 10.6 mEq/L (5-15); Aspartate Amino Transferase 19 U/L (17-59); Bilirubin,Direct 0.2 mg/dl (0.0-0.4); Bilirubin,Indirect 0.2 mg/dL (0.0-0.9); Bilirubin,Total 0.4 mg/dl (0.2-1.3); Bilirubin,Unconjugated 0.2 mg/dL (0.0-1.1); Blood Urea Nitrogen 12 mg/dl (9-20); Calcium 8.2 mg/dl (8.4-10.2); Carbon Dioxide 25 mmol/L (22.0-30.0); Chloride 102 mmol/L (98-107); Creatinine Clearance Estimated 119 mL/min (50-200); Estimated Glomerular Filt Rate 64 ml/min (>60); GFR (African American) 77 ML/MIN (>60); Glucose 312 mg/dl (74-100); Potassium 3.6 mmoL/L (3.5-5.1); Sodium 134 mmol/L (136-145); Total Protein,Serum 6.9 g/dl (6.3-8.2)
[2022-12-08 23:14] LABS: C-Reactive Protein 88.2 mg/L (0-4)
[2022-12-08 23:25] LABS: Erythrocyte Sedimentation Rate 124 mm/hr (0-15); Troponin I < 0.01 ng/ml (0.00-0.034)
[2022-12-08 23:26] LABS: Appearance,Urine CLEAR (Clear); Bilirubin,Urine Negative (Negative); Blood, Urine 1+ (Negative); Color,Urine YELLOW (Yellow); Glucose,Urine (UA) 2+ (Negative); Ketones,Urine Negative (Negative); Leukocyte Esterase,Urine Negative (Negative); Nitrate,Urine Negative (Negative); Protein,Urine 3+ (Negative); Specific Gravity, Urine 1.025 (1.005-1.030); Urobilinogen,Urine 0.2 EU/dl (0.2)
[2022-12-08 23:27] LABS: RBC,Urine Occasional #/hpf (0-3); WBC,Urine Occasional #/hpf (0-3)
[2022-12-08 23:28] LABS: Procalcitonin 0.358 ng/mL (0.0-2.0)
[2022-12-08 23:31] VITALS: BP 162/92; PULSE 114; O2SAT 96
[2022-12-08 23:35] LABS: Lactic Acid 1.2 mmol/L (0.7-2.1)
--- NOTE | 2022-12-08 23:44 | PC.NURSE ---
Pt complaining of pain. RN and MD notified.
--- NOTE | 2022-12-09 00:01 | PC.NURSE ---
Dr. Tavarez at BS speaking with pt
[2022-12-09 00:05] LABS: Amylase 47 U/L (30-110); Lipase 354 U/L (23-300)
--- NOTE | 2022-12-09 00:15 | HMH.EDCP ---
Discharge Plan Disposition Patient Disposition: Home, Self-Care Chief Complaint: Chest Pain Prescriptions Prescriptions: No Action hydromorphone [Dilaudid] 2 mg tablet 2 mg PO Q6H PRN (Reason: pain) Qty: 56 0RF ondansetron HCl 4 mg tablet 4 mg PO Q8H PRN (Reason: nausea and vomiting) Qty: 30 0RF insulin lispro [Humalog KwikPen Insulin] 100 unit/mL insulin pen See Rx Instructions .ROUTE .COMPLEX Qty: 15 3RF Dose Instruction: inject SUBCUTANEOUSLY DIRECTED PER sliding scale - max units PER DAY = 30 units Rx Instructions: inject SUBCUTANEOUSLY DIRECTED PER sliding scale - max units PER DAY = 30 units aspirin 81 mg tablet,delayed release (DR/EC) See Rx Instructions .ROUTE .COMPLEX Qty: 30 5RF Dose Instruction: TAKE ONE TABLET BY MOUTH EVERY DAY Rx Instructions: TAKE ONE TABLET BY MOUTH EVERY DAY albuterol sulfate [Ventolin HFA] 90 mcg/actuation HFA aerosol inhaler See Rx Instructions .ROUTE .COMPLEX Qty: 18 0RF Dose Instruction: INHALE TWO PUFFS BY MOUTH EVERY 4 TO 6 HOURS NEEDED FOR SHORTNESS OF BREATH OR wheezing Rx Instructions: INHALE TWO PUFFS BY MOUTH EVERY 4 TO 6 HOURS NEEDED FOR SHORTNESS OF BREATH OR wheezing hydrochlorothiazide 25 mg tablet See Rx Instructions .ROUTE .COMPLEX Qty: 90 3RF Dose Instruction: TAKE ONE TABLET BY MOUTH EVERY DAY FOR fluid Rx Instructions: TAKE ONE TABLET BY MOUTH EVERY DAY FOR fluid cholecalciferol (vitamin D3) 50 mcg (2,000 unit) tablet See Rx Instructions .ROUTE .COMPLEX Qty: 90 3RF Dose Instruction: TAKE ONE TABLET BY MOUTH EVERY DAY Rx Instructions: TAKE ONE TABLET BY MOUTH EVERY DAY loratadine 10 mg tablet See Rx Instructions .ROUTE .COMPLEX Qty: 90 3RF Dose Instruction: TAKE ONE TABLET BY MOUTH EVERY DAY FOR ALLERGY SYMPTOMS Rx Instructions: TAKE ONE TABLET BY MOUTH EVERY DAY FOR ALLERGY SYMPTOMS atorvastatin 20 mg tablet See Rx Instructions .ROUTE .COMPLEX Qty: 90 3RF Dose Instruction: TAKE ONE TABLET BY MOUTH EVERY DAY Rx Instructions: TAKE ONE TABLET BY MOUTH EVERY DAY ciprofloxacin-dexamethasone 7.5 ML bottle 2 drops EAR-RIGHT BID 7 Days Qty: 1 0RF prednisone 10 MG tablet 10 mg PO BID 3 Days Qty: 6 0RF azithromycin 250 MG tablet 250 mg PO UD DOSE PK Qty: 6 0RF Rx Instructions: Take two (2) tablets today, then one (1) tablet days #2 thru #5 lisinopril 10 MG tablet 10 mg PO DAILY dicyclomine 10 MG capsule 10 mg PO TID colchicine 0.6 mg capsule 0.6 mg PO BID Qty: 6 0RF Rx Instructions: Take 1.2mg (two 0.6mg tablets) now then wait one hour and take take (1) 0.6mg tablet then you may repeat repeat in 72hrs Referrals Follow up/Referrals: Vincent Boudreaux APRN [Primary Care Provider] - See instructions Clinical Impressions Clinical Impression: Pancreatitis Instructions Patient Instructions: DI for Pancreatitis Discharge ED Provider: Daysi (ED)Kimani Chest Pain HPI General Chief Complaint: Chest Pain Stated Complaint: CP Time Seen by Provider: 12/09/22 00:15 Mode of Arrival: Ambulatory Source of Information: Patient and Medical Record Limitations: No Limitations Description of Symptoms (Recalled from ER Triage Doc. by RN): pt c/o midsternal chest pain episodes that a week ago and lt flank pain radiating to chest. pt states this episode started a hour prior to arrival. History of Present Illness HPI narrative: hx of pancreatitis and has upper abd pain to lt flank- has hx of stent in pancreas - no fever or vomiting MD complaint: chest pain Onset (ago): day(s) Duration: intermittent Pain location: epigastric Severity: moderate Risk Factors for CAD: Family Hx of CAD and Smoking Treatments prior to or on arrival for Cardiac Chest Pain: none KEILA Score for Non-Stemi Age of Patient: 30-39 years old Heart Rate: 110-149 bpm Systolic Blood Pressure: 160-199 mmHg Serum Cre
[2022-12-09 00:34] VITALS: BP 165/94; PULSE 114; RESP 16; TEMP 37.1; O2SAT 95
== END 2022-12-09 00:50 | disposition home or self-care (01) ==
PROVIDERS: Emergency Provider Emergency Medicine; PCP Nurse Practitioner Family
DX: K85.90 Acute pancreatitis without necrosis or infection, unspecified (principal); R07.89 Other chest pain; J45.909 Unspecified asthma, uncomplicated; E11.9 Type 2 diabetes mellitus without complications; I10 Essential (primary) hypertension; F17.210 Nicotine dependence, cigarettes, uncomplicated; Z20.822 Contact with and (suspected) exposure to COVID-19
CPT/HCPCS: 71046; 74176; 80048; 80076; 81001; 82150; 83605; 83690; 84145; 84484; 85025; 85651; 86140; 87040; 93005; 96361; 96374; 96375; 99285; C9803; U0003; U0005

== ENCOUNTER → 2022-12-17 23:53 | Outpatient (CLI) | payer MEDICAID, SELFPAY ==
[2022-12-17 16:13] LABS: Basophils # 0.1 K/mm3 (0-0.2); Basophils % 0.6 % (0.1-2.0); Eosinophils # 0.2 K/mm3 (0.0-0.4); Eosinophils % 2.6 % (0.1-12.0); Hematocrit 36.9 % (42.0-52.0); Hemoglobin 11.7 g/dL (14.1-18.0); Lymphocytes # 1.3 K/mm3 (0.7-4.5); Lymphocytes % 16.2 % (10-50); Mean Corpuscular HGB Conc 31.8 g/dL (31.8-35.4); Mean Corpuscular Volume 88.1 fl (80-94); Mean Platelet Volume 9.7 fl (7.4-10.4); Monocytes # 0.4 K/mm3 (0.1-1.0); Monocytes % 4.4 % (1.7-9.3); Neutrophils % 76.2 % (37.0-80.0); Platelet Count 307 K/mm3 (142-424); Red Blood Count 4.19 M/mm3 (4.60-6.20); White Blood Count 7.8 K/mm3 (4.8-10.8)
[2022-12-17 17:58] LABS: Alanine Aminotransferase 238 U/L (12-78); Albumin Level 3.5 g/dl (3.5-5.0); Albumin/Globulin Ratio 1.1 (1.1-1.8); Alkaline Phosphatase 401 U/L (38-126); Anion Gap 11.3 mEq/L (5-15); Aspartate Amino Transferase 190 U/L (17-59); Blood Urea Nitrogen 12 mg/dl (9-20); Calcium 8.8 mg/dl (8.4-10.2); Carbon Dioxide 26 mmol/L (22.0-30.0); Chloride 105 mmol/L (98-107); Estimated Glomerular Filt Rate 54 ml/min (>60); GFR (African American) 65 ML/MIN (>60); Globulin 3.2 g/dL (1.3-3.2); Glucose 209 mg/dl (74-100); Lipase 70 U/L (23-300); Potassium 4.3 mmoL/L (3.5-5.1); Sodium 138 mmol/L (136-145); Total Protein,Serum 6.7 g/dl (6.3-8.2)
== END ==
PROVIDERS: PCP Family Medicine; Visit Provider Family Medicine
DX: K85.90 Acute pancreatitis without necrosis or infection, unspecified (principal)
CPT/HCPCS: 80053; 83690; 85025; 87086

== ENCOUNTER 2023-01-13 22:58 | Emergency (ER) | payer MEDICAID, SELFPAY ==
[2023-01-13 23:07] VITALS: BP 114/68; PULSE 126; O2SAT 97
[2023-01-13 23:09] VITALS: BP 114/68; PULSE 145; RESP 20; TEMP 37.7; O2SAT 98; BMI 34.7
--- NOTE | 2023-01-13 23:14 | CT_ITS ---
PROCEDURE INFORMATION: Exam: CT Abdomen And Pelvis Without Contrast Exam date and time: 01/13/2023 10:28 PM Age: 32 years old Clinical indication: Abdominal pain; Prior surgery; Patient HX: HX pancreatitis; Additional info: Abdominal pain, llq radiates to back TECHNIQUE: Imaging protocol: Computed tomography of the abdomen and pelvis without contrast. Radiation optimization: All CT scans at this facility use at least one of these dose optimization techniques: automated exposure control; mA and/or kV adjustment per patient size (includes targeted exams where dose is matched to clinical indication); or iterative reconstruction. REPORTING DATA: Count of CT and Cardiac NM exams in prior 12 months: This patient has received [address] and 0 known cardiac nuclear medicine studies in the 12 months prior to the current study. COMPARISON: CT ABDOMEN PELVIS WO CON 12/08/2022 11:04 PM FINDINGS: Limitations: Lack of intravenous contrast material limits sensitivity in evaluation for acute intra-abdominal pathology. Liver: Hepatomegaly, measuring 22.5 cm in craniocaudal axis. Periportal edema compatible with non-specific hepatic inflammation vs cardiogenic hepatic venous congestion. Gallbladder and bile ducts: Hyperattenuating material in the gallbladder compatible with biliary sludge vs non-calcified gallstones. No gallbladder wall thickening or pericholecystic fluid. Pancreas: Acute inflammatory changes previously demonstrated in the pancreaticoduodenal groove/jose raul hepatis on 12/08/2022 CT abdomen/pelvis have significantly increased since prior exam, now extending along the entire length of the pancreas to the splenic hilum. No pancreatic ductal dilation. Spleen: Splenomegaly, measuring 18.5 cm in craniocaudal axis. Adrenal glands: Unremarkable. Kidneys and ureters: Severely atrophic left kidney, unchanged. No renal or ureteral stones. No hydronephrosis. Stomach and bowel: Foreign body in the gastric fundus, unchanged from 12/08/2022 CT abdomen/pelvis. Multiple clusters of small bowel loops with matted appearance and sharply angulated contours consistent with mesenteric adhesions/scarring. No evidence of acute bowel inflammation or bowel obstruction. Appendix: Appendix is visualized and is normal. Intraperitoneal space: No free fluid or focal fluid collection. No pneumoperitoneum. Vasculature: Unremarkable. Lymph nodes: Lobulated and heterogeneous soft tissue density posterior to the 2nd part of the duodenum and pancreatic head measuring approximately 8 x 3 x 4 cm. Urinary bladder: Unremarkable. Reproductive: Unremarkable. Bones/joints: No acute osseous abnormality. Soft tissues: Unremarkable. IMPRESSION: 1. Acute inflammatory changes previously demonstrated in the pancreaticoduodenal groove/jose raul hepatis on 12/08/2022 CT abdomen/pelvis have significantly increased since prior exam, now extending along the entire length of the pancreas to the splenic hilum. Etiology remains unclear. 2. Lobulated and heterogeneous soft tissue density posterior to the 2nd part of the duodenum and pancreatic head measuring approximately 8 x 3 x 4 cm. Findings are indeterminate, although appear concerning for necrotic lymph node conglomerate. 3. Periportal edema compatible with non-specific hepatic inflammation vs cardiogenic hepatic venous congestion. 4. Hepatosplenomegaly. 5. Foreign body in the gastric fundus, unchanged from 12/08/2022 CT abdomen/pelvis. 6. Gallbladder contains biliary sludge vs non-calcified gallstones. No convincing evidence of acute cholecystitis. 7. Mesenteric adhesions suggestive of inflammatory bowel disease and/or prior
--- NOTE | 2023-01-13 23:15 | XR_ITS ---
PROCEDURE INFORMATION: Exam: XR Chest Exam date and time: 01/13/2023 11:22 PM Age: 32 years old Clinical indication: Fever TECHNIQUE: Imaging protocol: Radiologic exam of the chest. Views: 2 views. COMPARISON: CR XR CHEST 2V 12/08/2022 10:51 PM FINDINGS: Lungs: No acute airspace consolidation. No appreciable pulmonary edema. Pleural spaces: No pleural effusion. No pneumothorax. Heart/Mediastinum: Cardiomediastinal silouhette is within normal limits. Bones/joints: No evidence of acute osseous abnormality. IMPRESSION: No acute findings. No evidence of pneumonia.
[2023-01-13 23:22] LABS: Basophils # 0.1 K/mm3 (0-0.2); Basophils % 0.3 % (0.1-2.0); Eosinophils # 0.2 K/mm3 (0.0-0.4); Eosinophils % 0.8 % (0.1-12.0); Hematocrit 34.9 % (42.0-52.0); Hemoglobin 11.1 g/dL (14.1-18.0); Lymphocytes # 0.4 K/mm3 (0.7-4.5); Lymphocytes % 1.9 % (10-50); Mean Corpuscular HGB Conc 31.8 g/dL (31.8-35.4); Mean Corpuscular Hemoglobin 26.2 pg (27.0-31.2); Mean Corpuscular Volume 82.4 fl (80-94); Mean Platelet Volume 7.6 fl (7.4-10.4); Monocytes # 0.3 K/mm3 (0.1-1.0); Monocytes % 1.6 % (1.7-9.3); Neutrophils # 17.5 K/mm3 (1.8-7.8); Neutrophils % 95.4 % (37.0-80.0); Platelet Count 257 K/mm3 (142-424); Red Blood Count 4.23 M/mm3 (4.60-6.20); Red Cell Distribution Width 15.3 % (11.5-17.5); White Blood Count 18.3 K/mm3 (4.8-10.8)
[2023-01-13 23:25] LABS: MANUAL DIFFERENTIAL MANUAL DIFFERENTIAL (MANUAL DIFF)
[2023-01-13 23:26] LABS: Alanine Aminotransferase 64 U/L (12-78); Albumin Level 3.9 g/dl (3.5-5.0); Albumin/Globulin Ratio 1.1 (1.1-1.8); Alkaline Phosphatase 191 U/L (38-126); Amylase 49 U/L (30-110); Anion Gap 12.1 mEq/L (5-15); Aspartate Amino Transferase 64 U/L (17-59); Bilirubin,Total 0.8 mg/dl (0.2-1.3); Blood Urea Nitrogen 18 mg/dl (9-20); Calcium 8.7 mg/dl (8.4-10.2); Carbon Dioxide 26 mmol/L (22.0-30.0); Chloride 99 mmol/L (98-107); Creatinine Clearance Estimated 90 mL/min (50-200); Estimated Glomerular Filt Rate 47 ml/min (>60); GFR (African American) 56 ML/MIN (>60); Globulin 3.7 g/dL (1.3-3.2); Glucose 180 mg/dl (74-100); Lipase 86 U/L (23-300); Potassium 4.1 mmoL/L (3.5-5.1); Sodium 133 mmol/L (136-145); Total Protein,Serum 7.6 g/dl (6.3-8.2)
[2023-01-13 23:31] LABS: Lactic Acid 0.9 mmol/L (0.7-2.1)
[2023-01-13 23:32] LABS: C-Reactive Protein 81.1 mg/L (0-4)
[2023-01-13 23:46] LABS: Procalcitonin 4.86 ng/mL (0.0-2.0)
[2023-01-14] LABS: Lymphocytes % 6 % (10-50); Neutrophils % 94 % (42-76); Total Cells Counted 100
[2023-01-14 00:01] LABS: Platelet Estimate Normal; RBC Morphology Normal
[2023-01-14 00:41] LABS: Erythrocyte Sedimentation Rate 115 mm/hr (0-15)
[2023-01-14 00:47] LABS: Microscopic, Urine URINE MICROSCOPIC (MICROSCOPIC)
[2023-01-14 00:49] LABS: Appearance,Urine CLEAR (Clear); Blood, Urine 1+ (Negative); Color,Urine YELLOW (Yellow); Glucose,Urine (UA) Negative (Negative); Ketones,Urine TRACE (Negative); Leukocyte Esterase,Urine Negative (Negative); Nitrate,Urine Negative (Negative); Protein,Urine 3+ (Negative); Specific Gravity, Urine 1.025 (1.005-1.030); Urobilinogen,Urine 0.2 EU/dl (0.2)
[2023-01-14 00:52] LABS: Bilirubin,Urine Negative (Negative)
[2023-01-14 01:06] LABS: NT Pro Brain Natriuretic Pep. 312 pg/mL (0-125)
[2023-01-14 01:09] VITALS: BP 107/51; PULSE 116; O2SAT 97
[2023-01-14 01:15] VITALS: PULSE 108; O2SAT 96
[2023-01-14 01:16] LABS: Bacteria,Urine 2+ /lpf; Mucus,Urine 1+ /lpf
[2023-01-14 01:30] VITALS: BP 121/69; PULSE 111; O2SAT 96
--- NOTE | 2023-01-14 01:30 | PC.NURSE ---
Called radiology to check with [facility] regarding wait times for images. Pt & family updated on this.
--- NOTE | 2023-01-14 01:39 | PC.NURSE ---
Rounded on patient. Patient is resting, Son is at bedside. No concerns voiced at this time.
--- NOTE | 2023-01-14 01:44 | PC.NURSE ---
pt's called for an update, pt gave permission, and she was updated on information that had been received thus far and fact of waiting for ct scan results.
--- NOTE | 2023-01-14 01:54 | [facility].EDABDPAI ---
Discharge Plan Disposition Patient Disposition: Home, Self-Care Chief Complaint: Abdominal Pain Prescriptions Prescriptions: No Action ciprofloxacin HCl [Cipro] 500 mg tablet 500 mg PO BID Qty: 20 0RF prochlorperazine maleate [Compazine] 10 mg tablet 10 mg PO Q8H PRN (Reason: nausea and vomiting) Qty: 30 5RF diphenhydramine HCl [Benadryl] 25 mg capsule 25 mg PO TID PRN (Reason: itching) Qty: 30 0RF ondansetron HCl 4 mg tablet 4 mg PO Q8H PRN (Reason: nausea and vomiting) Qty: 30 0RF insulin lispro [Humalog KwikPen Insulin] 100 unit/mL insulin pen See Rx Instructions .ROUTE .COMPLEX Qty: 15 3RF Dose Instruction: inject SUBCUTANEOUSLY DIRECTED PER sliding scale - max units PER DAY = 30 units Rx Instructions: inject SUBCUTANEOUSLY DIRECTED PER sliding scale - max units PER DAY = 30 units hydrochlorothiazide 25 mg tablet See Rx Instructions .ROUTE .COMPLEX Qty: 90 3RF Dose Instruction: TAKE ONE TABLET BY MOUTH EVERY DAY FOR fluid Rx Instructions: TAKE ONE TABLET BY MOUTH EVERY DAY FOR fluid cholecalciferol (vitamin D3) 50 mcg (2,000 unit) tablet See Rx Instructions .ROUTE .COMPLEX Qty: 90 3RF Dose Instruction: TAKE ONE TABLET BY MOUTH EVERY DAY Rx Instructions: TAKE ONE TABLET BY MOUTH EVERY DAY loratadine 10 mg tablet See Rx Instructions .ROUTE .COMPLEX Qty: 90 3RF Dose Instruction: TAKE ONE TABLET BY MOUTH EVERY DAY FOR ALLERGY SYMPTOMS Rx Instructions: TAKE ONE TABLET BY MOUTH EVERY DAY FOR ALLERGY SYMPTOMS atorvastatin 20 mg tablet See Rx Instructions .ROUTE .COMPLEX Qty: 90 3RF Dose Instruction: TAKE ONE TABLET BY MOUTH EVERY DAY Rx Instructions: TAKE ONE TABLET BY MOUTH EVERY DAY aspirin 81 mg tablet,delayed release (DR/EC) See Rx Instructions .ROUTE .COMPLEX Qty: 30 5RF Dose Instruction: TAKE ONE TABLET BY MOUTH EVERY DAY Rx Instructions: TAKE ONE TABLET BY MOUTH EVERY DAY oxycodone-acetaminophen [Percocet] 5-325 mg tablet 1 tab PO BID PRN (Reason: pancreatitis) Qty: 20 0RF albuterol sulfate 90 mcg/actuation HFA aerosol inhaler See Rx Instructions .ROUTE .COMPLEX Qty: 18 0RF Dose Instruction: INHALE TWO PUFFS BY MOUTH EVERY 4 TO 6 HOURS NEEDED FOR SHORTNESS OF BREATH OR wheezing Rx Instructions: INHALE TWO PUFFS BY MOUTH EVERY 4 TO 6 HOURS NEEDED FOR SHORTNESS OF BREATH OR wheezing lisinopril 10 MG tablet 10 mg PO DAILY dicyclomine 10 MG capsule 10 mg PO TID colchicine 0.6 mg capsule 0.6 mg PO BID Qty: 6 0RF Rx Instructions: Take 1.2mg (two 0.6mg tablets) now then wait one hour and take take (1) 0.6mg tablet then you may repeat repeat in 72hrs Referrals Follow up/Referrals: Marlo Giles MD [Primary Care Provider] - See instructions Clinical Impressions Clinical Impression: Necrotizing pancreatitis Stand Alone Forms Stand Alone Forms: Transfer Record - ED Instructions Patient Instructions: DI for Acute Abdominal Pain Discharge ED Provider: Daysi (ED)[facility]ani Abdominal Pain HPI General Chief Complaint: Abdominal Pain Stated Complaint: lower left side abdominal pain radiating to back Time Seen by Provider: 01/14/23 00:00 Mode of Arrival: Ambulatory Source of Information: Patient and Medical Record Limitations: No Limitations Description of Symptoms (Recalled from ER Triage Doc. by RN): Pt arrives private vehicle. Per pt, this afternoon around 1200 he began to have left lower abdominal pain that radiates into his left lower back. Denies any injury, does have a history of pancreatitis. Also presents with a fever and nausea. History of Present Illness HPI narrative: pt with lt sided abd pain with hx of pancreatitis - complaint: abdominal pain Onset (ago): hour(s) Consistency: constant Location: [facility] Severity: moderate Associated symptoms: denies other symptoms Related Data Home Medications Medication
[2023-01-14 02:00] VITALS: BP 108/50; PULSE 108; O2SAT 97
--- NOTE | 2023-01-14 02:12 | PC.NURSE ---
asked for radiology to power share images to [facility]
--- NOTE | 2023-01-14 02:17 | PC.NURSE ---
Calling [facility] transfer center, gave pt information to them and stated they will call back.
--- NOTE | 2023-01-14 02:21 | PC.NURSE ---
called [facility], and Dr. Tavarez s/w Dr. Victoria
[2023-01-14 02:30] VITALS: BP 118/51; PULSE 109; O2SAT 90
[2023-01-14 02:51] VITALS: BP 120/55; PULSE 110; RESP 20; TEMP 36.9; O2SAT 99
== END 2023-01-14 03:29 | disposition home or self-care (01) ==
PROVIDERS: Emergency Provider Emergency Medicine; PCP Family Medicine
DX: K85.92 Acute pancreatitis with infected necrosis, unspecified (principal); J45.909 Unspecified asthma, uncomplicated; E11.9 Type 2 diabetes mellitus without complications; I10 Essential (primary) hypertension; F17.210 Nicotine dependence, cigarettes, uncomplicated; F17.290 Nicotine dependence, other tobacco product, uncomplicated
CPT/HCPCS: 71046; 74176; 80053; 81001; 82150; 83605; 83690; 83880; 84145; 85007; 85025; 85651; 86140; 87086; 96361; 96374; 96375; 99285; J0131; J2405

== ENCOUNTER 2023-02-09 10:40 | Emergency (ER) | payer MEDICAID, SELFPAY ==
[2023-02-09 10:50] VITALS: BP 156/99; PULSE 87; RESP 20; TEMP 36.8; O2SAT 98; BMI 33.0
--- NOTE | 2023-02-09 10:50 | EXP.UTC ---
Discharge Plan Disposition Patient Disposition: Home, Self-Care Condition: Good Prescriptions Prescriptions: New prednisone 10 mg tablet 10 mg PO DIRECTED 9 Days Qty: 21 0RF Rx Instructions: Take 4 tablets daily for 3 days, then take 2 tablets daily for 3 days, then take 1 tablet daily for 3 days, then stop. No Action ciprofloxacin HCl [Cipro] 500 mg tablet 500 mg PO BID Qty: 20 0RF prochlorperazine maleate [Compazine] 10 mg tablet 10 mg PO Q8H PRN (Reason: nausea and vomiting) Qty: 30 5RF diphenhydramine HCl [Benadryl] 25 mg capsule 25 mg PO TID PRN (Reason: itching) Qty: 30 0RF ondansetron HCl 4 mg tablet 4 mg PO Q8H PRN (Reason: nausea and vomiting) Qty: 30 0RF insulin lispro [Humalog KwikPen Insulin] 100 unit/mL insulin pen See Rx Instructions .ROUTE .COMPLEX Qty: 15 3RF Dose Instruction: inject SUBCUTANEOUSLY DIRECTED PER sliding scale - max units PER DAY = 30 units Rx Instructions: inject SUBCUTANEOUSLY DIRECTED PER sliding scale - max units PER DAY = 30 units hydrochlorothiazide 25 mg tablet See Rx Instructions .ROUTE .COMPLEX Qty: 90 3RF Dose Instruction: TAKE ONE TABLET BY MOUTH EVERY DAY FOR fluid Rx Instructions: TAKE ONE TABLET BY MOUTH EVERY DAY FOR fluid cholecalciferol (vitamin D3) 50 mcg (2,000 unit) tablet See Rx Instructions .ROUTE .COMPLEX Qty: 90 3RF Dose Instruction: TAKE ONE TABLET BY MOUTH EVERY DAY Rx Instructions: TAKE ONE TABLET BY MOUTH EVERY DAY loratadine 10 mg tablet See Rx Instructions .ROUTE .COMPLEX Qty: 90 3RF Dose Instruction: TAKE ONE TABLET BY MOUTH EVERY DAY FOR ALLERGY SYMPTOMS Rx Instructions: TAKE ONE TABLET BY MOUTH EVERY DAY FOR ALLERGY SYMPTOMS atorvastatin 20 mg tablet See Rx Instructions .ROUTE .COMPLEX Qty: 90 3RF Dose Instruction: TAKE ONE TABLET BY MOUTH EVERY DAY Rx Instructions: TAKE ONE TABLET BY MOUTH EVERY DAY aspirin 81 mg tablet,delayed release (DR/EC) See Rx Instructions .ROUTE .COMPLEX Qty: 30 5RF Dose Instruction: TAKE ONE TABLET BY MOUTH EVERY DAY Rx Instructions: TAKE ONE TABLET BY MOUTH EVERY DAY albuterol sulfate 90 mcg/actuation HFA aerosol inhaler See Rx Instructions .ROUTE .COMPLEX Qty: 18 0RF Dose Instruction: INHALE TWO PUFFS BY MOUTH EVERY 4 TO 6 HOURS NEEDED FOR SHORTNESS OF BREATH OR wheezing Rx Instructions: INHALE TWO PUFFS BY MOUTH EVERY 4 TO 6 HOURS NEEDED FOR SHORTNESS OF BREATH OR wheezing oxycodone-acetaminophen [Percocet] 5-325 mg tablet 1 tab PO BID PRN (Reason: pancreatitis) Qty: 20 0RF lisinopril 10 MG tablet 10 mg PO DAILY dicyclomine 10 MG capsule 10 mg PO TID colchicine 0.6 mg capsule 0.6 mg PO BID Qty: 6 0RF Rx Instructions: Take 1.2mg (two 0.6mg tablets) now then wait one hour and take take (1) 0.6mg tablet then you may repeat repeat in 72hrs Referrals Follow up/Referrals: Marlo Giles MD [Primary Care Provider] - See instructions Activity Restrictions/Add. Instructions Additional Instructions/Restrictions: Rest the extremity, Elevate the extremity as tolerated while you are resting. Don't start the oral steroids (prednisone) until tomorrow, since you had the shots in here today. Follow up with your regular doctor. GO TO THE ER FOR ANY WORSENING SYMPTOMS Clinical Impressions Clinical Impression: Gout attack, Knee pain, right Stand Alone Forms Stand Alone Forms: Work/School Release Instructions Patient Instructions: Gout, DI for Gout, Ketorolac, Methylprednisolone Injection Discharge ED Provider: Kurt Goins [facility] General Stated complaint: possible gout, swollen and pain in Rt knee Time Seen by Provider: 02/09/23 10:49 History of Present Illness Provider Complaint: He states that for the past 2 days he has had a flare up of his gout in his right knee. He denies any injury and he states t
[2023-02-09 11:51] VITALS: BP 156/99; PULSE 87; RESP 20; TEMP 36.8; O2SAT 98
== END 2023-02-09 11:46 | disposition home or self-care (01) ==
PROVIDERS: Emergency Provider Nurse Practitioner Family; PCP Family Medicine
DX: M10.9 Gout, unspecified (principal); M25.561 Pain in right knee; E11.9 Type 2 diabetes mellitus without complications; I10 Essential (primary) hypertension; Z79.4 Long term (current) use of insulin; F17.290 Nicotine dependence, other tobacco product, uncomplicated
CPT/HCPCS: 96372; 99212; 99214; G0463

== ENCOUNTER → 2023-03-06 19:02 | Outpatient (CLI) | payer MEDICAID, SELFPAY ==
[2023-03-06 18:26] LABS: Adenovirus,PCR Not Detected (NotDetected); Bordetella Pertussis Not Detected (NotDetected); Chlamydophila Pneumoniae, PCR Not Detected (NotDetected); Coronavirus 19, PCR Not Detected (NotDetected); Coronavirus 229E Not Detected (NotDetected); Coronavirus NL63 Not Detected (NotDetected); Coronavirus OC43 Not Detected (NotDetected); Coronovirus HKU1,PCR Not Detected (NotDetected); Human Metapneumovirus Not Detected (NotDetected); Influenza A, PCR Not Detected (NotDetected); Influenza AH1, 2009 Not Detected (NotDetected); Influenza AH1, PCR Not Detected (NotDetected); Influenza AH3,PCR Not Detected (NotDetected); Influenza B, PCR Not Detected (NotDetected); Mycoplasma Pneumoniae, PCR Not Detected (NotDetected); Parainfluenza 1, PCR Not Detected (NotDetected); Parainfluenza 2, PCR Not Detected (NotDetected); Parainfluenza 3, PCR Not Detected (NotDetected); Parainfluenza 4, PCR Not Detected (NotDetected); Respiratory Syncytial Virus Not Detected (NotDetected); Rhinovirus/Enterovirus Not Detected (NotDetected)
== END ==
PROVIDERS: PCP Student in an Organized Health Care Education/Training Program; Visit Provider Student in an Organized Health Care Education/Training Program
DX: R06.02 Shortness of breath (principal); R50.9 Fever, unspecified; R05.9 Cough, unspecified; R11.2 Nausea with vomiting, unspecified
CPT/HCPCS: 87581; 87632; 87798; C9803; U0003; U0005

== ENCOUNTER 2023-03-26 01:11 | Emergency (ER) | payer MEDICAID, SELFPAY ==
[2023-03-26 01:11] VITALS: BP 150/99; PULSE 81; RESP 16; TEMP 36.6; O2SAT 99; BMI 32.3
--- NOTE | 2023-03-26 01:21 | CT_ITS ---
PROCEDURE INFORMATION: Exam: CT Abdomen And Pelvis With Contrast Exam date and time: 03/26/2023 2:43 AM Age: 33 years old Clinical indication: Abdominal pain; Prior surgery; Surgery date: 1-6 months; Surgery type: Stent removal from pancreas; Patient HX: HX pancreatitis; Additional info: Abd pain TECHNIQUE: Imaging protocol: Computed tomography of the abdomen and pelvis with contrast. Radiation optimization: All CT scans at this facility use at least one of these dose optimization techniques: automated exposure control; mA and/or kV adjustment per patient size (includes targeted exams where dose is matched to clinical indication); or iterative reconstruction. Contrast material: ISOVUE; Contrast volume: 75 ml; Contrast route: IV; REPORTING DATA: Count of CT and Cardiac NM exams in prior 12 months: This patient has received 2 known [address]s and 0 known cardiac nuclear medicine studies in the 12 months prior to the current study. COMPARISON: CT ABDOMEN PELVIS WO CON 01/13/2023 10:28 PM FINDINGS: Liver: Normal. No mass. Gallbladder and bile ducts: Normal. No calcified stones. No ductal dilation. Pancreas: Some mild peripancreatic edema is present. No evidence of pancreatic necrosis or mass is present. No fluid collections are identified. Spleen: Normal. No splenomegaly. Adrenal glands: Normal. No mass. Kidneys and ureters: Normal. No hydronephrosis. Stomach and bowel: Unremarkable. No obstruction. No mucosal thickening. Appendix: No evidence of appendicitis. Intraperitoneal space: Unremarkable. No free air. No significant fluid collection. Vasculature: Unremarkable. No abdominal aortic aneurysm. Lymph nodes: Unremarkable. No enlarged lymph nodes. Urinary bladder: Unremarkable as visualized. Reproductive: Unremarkable as visualized. Bones/joints: Unremarkable. No acute fracture. Soft tissues: Unremarkable. IMPRESSION: Peripancreatic edema consistent with acute pancreatitis. No fluid collections identified. No evidence of pancreatic necrosis noted.
[2023-03-26 02:19] LABS: Chloride 100 mmol/L (98-107); Potassium 4.1 mmoL/L (3.5-5.1); Sodium 136 mmol/L (136-145)
[2023-03-26 02:21] LABS: Amylase 72 U/L (30-110)
[2023-03-26 02:22] LABS: Alanine Aminotransferase 22 U/L (12-78); Albumin Level 3.8 g/dl (3.5-5.0); Albumin/Globulin Ratio 1.3 (1.1-1.8); Alkaline Phosphatase 41 U/L (38-126); Anion Gap 17.1 mEq/L (5-15); Aspartate Amino Transferase 30 U/L (17-59); Bilirubin,Total 0.5 mg/dl (0.2-1.3); Blood Urea Nitrogen 11 mg/dl (9-20); Calcium 8.6 mg/dl (8.4-10.2); Carbon Dioxide 23 mmol/L (22.0-30.0); Creatinine Clearance Estimated 116 mL/min (50-200); Estimated Glomerular Filt Rate 63 ml/min (>60); GFR (African American) 76 ML/MIN (>60); Glucose 201 mg/dl (74-100); Lipase 224 U/L (23-300); Total Protein,Serum 6.8 g/dl (6.3-8.2)
--- NOTE | 2023-03-26 02:36 | HMH.EDABDPAI ---
Discharge Plan Disposition Patient Disposition: Home, Self-Care Condition: Good Prescriptions Prescriptions: No Action aspirin 81 mg tablet,delayed release (DR/EC) See Rx Instructions .ROUTE .COMPLEX Rx Instructions: TAKE ONE TABLET BY MOUTH EVERY DAY hydrochlorothiazide 25 mg tablet See Rx Instructions .ROUTE .COMPLEX Rx Instructions: TAKE ONE TABLET BY MOUTH EVERY DAY FOR fluid albuterol sulfate 90 mcg/actuation HFA aerosol inhaler See Rx Instructions .ROUTE .COMPLEX Rx Instructions: INHALE TWO PUFFS BY MOUTH EVERY 4 TO 6 HOURS NEEDED FOR SHORTNESS OF BREATH OR wheezing loratadine 10 mg tablet See Rx Instructions .ROUTE .COMPLEX Rx Instructions: TAKE ONE TABLET BY MOUTH EVERY DAY FOR ALLERGY SYMPTOMS cholecalciferol (vitamin D3) 50 mcg (2,000 unit) tablet See Rx Instructions .ROUTE .COMPLEX Rx Instructions: TAKE ONE TABLET BY MOUTH EVERY DAY lisinopril 10 MG tablet 10 mg PO DAILY Referrals Follow up/Referrals: Provider,Referral, [Primary Care Provider] - See instructions Activity Restrictions/Add. Instructions Additional Instructions/Restrictions: Follow up with pcp . Clinical Impressions Clinical Impression: Pancreatitis Instructions Patient Instructions: DI for Acute Abdominal Pain Discharge ED Provider: Daysi (ED)Kimani Abdominal Pain HPI General Chief Complaint: Abdominal Pain Stated Complaint: ABD pain Time Seen by Provider: 03/26/23 02:00 Mode of Arrival: EMS Source of Information: Patient, EMS and Medical Record Limitations: No Limitations Description of Symptoms (Recalled from ER Triage Doc. by RN): pt states to have abdominal pin in the center right side that radiatesaround the back, the pt states that his pain is a 8/10 and it started about 1 hour ago. the pt has a hx of pancreatitis History of Present Illness HPI narrative: pt with known pancreatitis and with acute episode tonight - has stable exam and labs and ct showed min changes - complaint: abdominal pain Onset (ago): hour(s) Consistency: intermittent Location: [facility] Severity: similar to previous episodes Quality: sharp Associated symptoms: denies other symptoms Related Data Home Medications Medication Instructions Recorded Confirmed lisinopril 10 mg tablet 10 mg PO DAILY Hypertension 10/05/21 03/26/23 albuterol sulfate 90 mcg/actuation See Rx Instructions .Route 03/26/23 03/26/23 aerosol inhaler .COMPLEX short of breath aspirin 81 mg tablet,delayed See Rx Instructions .Route 03/26/23 03/26/23 release .COMPLEX Supplement cholecalciferol (vitamin D3) 50 See Rx Instructions .Route 03/26/23 03/26/23 mcg (2,000 unit) tablet .COMPLEX Supplement hydrochlorothiazide 25 mg tablet See Rx Instructions .Route 03/26/23 03/26/23 .COMPLEX Fluid loratadine 10 mg tablet See Rx Instructions .Route 03/26/23 03/26/23 .COMPLEX Allergy symptoms Allergies Allergy/AdvReac Type Severity Reaction Status Date / Time Penicillins [PENICILLINS] Allergy Unknown Verified 03/06/23 11:36 [facility] Disclaimer: The information contained in this section may have been updated after the patient was seen, as this information can be updated by other users. Medical History Asthma Diabetes Hypertension Social History Smoking Status: Current every day smoker tobacco type: cigarettes packs per day: 1 and smokeless tobacco second hand exposure: Yes alcohol intake: never substance use type: denies use current occupational status: employed Travel in the last 8 weeks: None household members: spouse housing: house caffeine: Yes ROS Obtained: Yes All systems reviewed & no additional complaints except as documented Physical Exam General General appearance: alert Head Head exam: normocephalic Eye Eye exam: Present PERRL and EOMI ENT EN
--- NOTE | 2023-03-26 02:47 | PC.NURSE ---
pt back from scan
--- NOTE | 2023-03-26 03:50 | PC.NURSE ---
advised md of patient continuing to have pain
[2023-03-26 05:06] LABS: Basophils # 0.1 K/mm3 (0-0.2); Basophils % 0.9 % (0.1-2.0); Eosinophils # 1.1 K/mm3 (0.0-0.4); Eosinophils % 11.4 % (0.1-12.0); Hematocrit 35.8 % (42.0-52.0); Hemoglobin 11.7 g/dL (14.1-18.0); Lymphocytes # 2.6 K/mm3 (0.7-4.5); Lymphocytes % 27.4 % (10-50); Mean Corpuscular HGB Conc 32.6 g/dL (31.8-35.4); Mean Corpuscular Hemoglobin 27.4 pg (27.0-31.2); Mean Corpuscular Volume 84.2 fl (80-94); Mean Platelet Volume 7.6 fl (7.4-10.4); Monocytes # 0.3 K/mm3 (0.1-1.0); Monocytes % 3.5 % (1.7-9.3); Neutrophils # 5.4 K/mm3 (1.8-7.8); Neutrophils % 56.8 % (37.0-80.0); Platelet Count 175 K/mm3 (142-424); Red Blood Count 4.26 M/mm3 (4.60-6.20); Red Cell Distribution Width 18.9 % (11.5-17.5); White Blood Count 9.5 K/mm3 (4.8-10.8)
[2023-03-26 05:39] LABS: Chol/HDL Ratio 6.3 (1-3.5); Cholesterol 157 mg/dl (140-200); HDL Cholesterol 25 mg/dl (40-60)
[2023-03-26 05:41] VITALS: BP 145/87; PULSE 59; RESP 14; TEMP 36.7; O2SAT 99
[2023-03-26 05:50] LABS: Direct LDL Cholesterol 77.29 mg/dL (100-129)
[2023-03-26 05:59] LABS: Triglycerides 510 mg/dl (30-150)
== END 2023-03-26 05:49 | disposition home or self-care (01) ==
PROVIDERS: Emergency Provider Emergency Medicine
DX: K85.90 Acute pancreatitis without necrosis or infection, unspecified; F17.210 Nicotine dependence, cigarettes, uncomplicated
CPT/HCPCS: 74177; 80053; 80061; 82150; 83690; 85025; 96361; 96374; 96375; 99285; J2405; Q9967

== ENCOUNTER 2023-03-31 23:28 | Emergency (ER) | payer MEDICAID, SELFPAY ==
[2023-03-31 23:29] VITALS: BP 163/133; PULSE 79; RESP 20; TEMP 36.9; O2SAT 98; BMI 33.2
--- NOTE | 2023-04-01 00:27 | CT_ITS ---
PROCEDURE INFORMATION: Exam: CT Abdomen And Pelvis With Contrast Exam date and time: 04/01/2023 12:44 AM Age: 33 years old Clinical indication: Abdominal pain; Additional info: Abd pain TECHNIQUE: Imaging protocol: Computed tomography of the abdomen and pelvis with contrast. Radiation optimization: All CT scans at this facility use at least one of these dose optimization techniques: automated exposure control; mA and/or kV adjustment per patient size (includes targeted exams where dose is matched to clinical indication); or iterative reconstruction. Contrast material: ISOVUE; Contrast volume: 75 ml; Contrast route: IV; REPORTING DATA: Count of CT and Cardiac NM exams in prior 12 months: This patient has received 3 known [address]s and 0 known cardiac nuclear medicine studies in the 12 months prior to the current study. COMPARISON: 1. CT ABDOMEN PELVIS W CON 03/26/2023 2:[address] ABDOMEN PELVIS WO CON 01/13/2023 10:28 PM FINDINGS: Lungs: Clear basilar lung parenchyma. Pleural spaces: No pleural fluid. Heart: Normal heart size. Liver: Liver measures 22.5 cm in length. Gallbladder and bile ducts: Postprandial gallbladder is contracted. Pancreas: Pancreatic tail edema is similar to most recent prior exam. No pancreatic ductal dilation. No evidence of pancreatic hemorrhage or necrosis. Spleen: Spleen measures 17.9 cm in length. Adrenal glands: Normal configuration. Kidneys and ureters: Left kidney is scarred and atrophic compared to the right. No renal obstruction or inflammation on either side. Stomach and bowel: Gas filled periampullary duodenal diverticulum. Postprandial stomach. Normal caliber small bowel. Normal colon. Appendix: Normal appendix is confirmed. Intraperitoneal space: No free air. No significant fluid collection. Vasculature: Splenic and portal veins are patent. Very tortuous splenic artery for age, significance unclear. Lymph nodes: Previously seen retropancreatic adenopathy has decreased in volume. Urinary bladder: Unremarkable as visualized. Reproductive: Physiologic appearance for age. Bones/joints: No fracture or destructive lesion. Soft tissues: Unremarkable. IMPRESSION: 1. Focal edema involves the pancreatic tail compatible with acute pancreatitis. No ductal dilation. No evidence of pancreatic necrosis or hemorrhage. 2. Numerous reactive sized lymph nodes are noted in the peripancreatic and celiac regions, diminished in volume from prior exam in January. Unchanged hepatosplenomegaly. 3. Very tortuous splenic artery in this young patient, significance unclear. New line severe scarring and atrophy of the left kidney.
[2023-04-01 00:34] LABS: Basophils # 0.1 K/mm3 (0-0.2); Basophils % 0.6 % (0.1-2.0); Eosinophils # 0.7 K/mm3 (0.0-0.4); Eosinophils % 8.1 % (0.1-12.0); Hematocrit 40.8 % (42.0-52.0); Hemoglobin 13.1 g/dL (14.1-18.0); Lymphocytes # 2.6 K/mm3 (0.7-4.5); Lymphocytes % 28.5 % (10-50); Mean Corpuscular HGB Conc 32.1 g/dL (31.8-35.4); Mean Corpuscular Hemoglobin 26.3 pg (27.0-31.2); Mean Corpuscular Volume 81.8 fl (80-94); Mean Platelet Volume 7.6 fl (7.4-10.4); Monocytes # 0.4 K/mm3 (0.1-1.0); Monocytes % 3.9 % (1.7-9.3); Neutrophils # 5.3 K/mm3 (1.8-7.8); Neutrophils % 58.8 % (37.0-80.0); Platelet Count 188 K/mm3 (142-424); Red Blood Count 4.99 M/mm3 (4.60-6.20); Red Cell Distribution Width 18.3 % (11.5-17.5); White Blood Count 8.9 K/mm3 (4.8-10.8)
[2023-04-01 00:35] LABS: Chloride 102 mmol/L (98-107); Potassium 3.6 mmoL/L (3.5-5.1); Sodium 140 mmol/L (136-145)
[2023-04-01 00:37] LABS: Amylase 89 U/L (30-110)
[2023-04-01 00:38] LABS: Alanine Aminotransferase 17 U/L (12-78); Albumin/Globulin Ratio 1.2 (1.1-1.8); Alkaline Phosphatase 64 U/L (38-126); Anion Gap 14.6 mEq/L (5-15); Aspartate Amino Transferase 21 U/L (17-59); Blood Urea Nitrogen 17 mg/dl (9-20); Calcium 9.1 mg/dl (8.4-10.2); Carbon Dioxide 27 mmol/L (22.0-30.0); Creatinine Clearance Estimated 94 mL/min (50-200); Estimated Glomerular Filt Rate 50 ml/min (>60); GFR (African American) 60 ML/MIN (>60); Globulin 3.4 g/dL (1.3-3.2); Glucose 154 mg/dl (74-100); Lipase 352 U/L (23-300); Total Protein,Serum 7.4 g/dl (6.3-8.2)
[2023-04-01 00:40] LABS: Microscopic, Urine URINE MICROSCOPIC (MICROSCOPIC)
[2023-04-01 00:41] LABS: Appearance,Urine CLEAR (Clear); Bilirubin,Urine Negative (Negative); Blood, Urine TRACE-I (Negative); Color,Urine YELLOW (Yellow); Glucose,Urine (UA) Negative (Negative); Ketones,Urine Negative (Negative); Leukocyte Esterase,Urine Negative (Negative); Nitrate,Urine Negative (Negative); PH,Urine 6.5 (5.0-8.5); Protein,Urine 3+ (Negative); Specific Gravity, Urine 1.025 (1.005-1.030); Urobilinogen,Urine 0.2 EU/dl (0.2)
[2023-04-01 00:44] LABS: C-Reactive Protein 16.9 mg/L (0-4)
[2023-04-01 01:14] LABS: Bacteria,Urine Trace /lpf; Mucus,Urine Trace /lpf; WBC,Urine Occasional #/hpf (0-3)
[2023-04-01 01:15] LABS: Bilirubin,Total < 0.1 mg/dl (0.2-1.3)
[2023-04-01 01:41] LABS: Erythrocyte Sedimentation Rate 52 mm/hr (0-15)
[2023-04-01 01:53] LABS: Procalcitonin 0.077 ng/mL (0.0-2.0)
--- NOTE | 2023-04-01 02:02 | HMH.EDABDPAI ---
Discharge Plan Disposition Patient Disposition: Home, Self-Care Prescriptions Prescriptions: No Action aspirin 81 mg tablet,delayed release (DR/EC) See Rx Instructions .ROUTE .COMPLEX Rx Instructions: TAKE ONE TABLET BY MOUTH EVERY DAY hydrochlorothiazide 25 mg tablet See Rx Instructions .ROUTE .COMPLEX Rx Instructions: TAKE ONE TABLET BY MOUTH EVERY DAY FOR fluid albuterol sulfate 90 mcg/actuation HFA aerosol inhaler See Rx Instructions .ROUTE .COMPLEX Rx Instructions: INHALE TWO PUFFS BY MOUTH EVERY 4 TO 6 HOURS NEEDED FOR SHORTNESS OF BREATH OR wheezing loratadine 10 mg tablet See Rx Instructions .ROUTE .COMPLEX Rx Instructions: TAKE ONE TABLET BY MOUTH EVERY DAY FOR ALLERGY SYMPTOMS cholecalciferol (vitamin D3) 50 mcg (2,000 unit) tablet See Rx Instructions .ROUTE .COMPLEX Rx Instructions: TAKE ONE TABLET BY MOUTH EVERY DAY lisinopril 10 MG tablet 10 mg PO DAILY Referrals Follow up/Referrals: Marlo Giles MD [Primary Care Provider] - See instructions Clinical Impressions Clinical Impression: Pancreatitis Instructions Patient Instructions: DI for Pancreatitis Discharge ED Provider: Daysi (ED)Kimani Abdominal Pain HPI General Chief Complaint: Abdominal Pain Stated Complaint: abd and back pain Time Seen by Provider: 04/01/23 01:25 Mode of Arrival: Ambulatory Source of Information: Patient and Medical Record Limitations: No Limitations Description of Symptoms (Recalled from ER Triage Doc. by RN): Pt has hx of pancreatitis, last flare up 1 week ago, abdominal pain past 3 days that has worsened tonight. Complain of consistant nausea with abdominal and back pain. History of Present Illness HPI narrative: pt with ongoing issues with abd pain and pancreatitis - pt was seen last week and unable to follow up with pcp - pt with nausea - complaint: abdominal pain Onset (ago): day(s) Consistency: intermittent Location: periumbilical, LUQ and epigastric Severity: similar to previous episodes Associated symptoms: denies other symptoms Related Data Home Medications Medication Instructions Recorded Confirmed lisinopril 10 mg tablet 10 mg PO DAILY Hypertension 10/05/21 04/01/23 albuterol sulfate 90 mcg/actuation See Rx Instructions .Route 03/26/23 04/01/23 aerosol inhaler .COMPLEX short of breath aspirin 81 mg tablet,delayed See Rx Instructions .Route 03/26/23 04/01/23 release .COMPLEX Supplement cholecalciferol (vitamin D3) 50 See Rx Instructions .Route 03/26/23 04/01/23 mcg (2,000 unit) tablet .COMPLEX Supplement hydrochlorothiazide 25 mg tablet See Rx Instructions .Route 03/26/23 04/01/23 .COMPLEX Fluid loratadine 10 mg tablet See Rx Instructions .Route 03/26/23 04/01/23 .COMPLEX Allergy symptoms Allergies Allergy/AdvReac Type Severity Reaction Status Date / Time Penicillins [PENICILLINS] Allergy Unknown Verified 03/06/23 11:36 [facility] Disclaimer: The information contained in this section may have been updated after the patient was seen, as this information can be updated by other users. Medical History Asthma Diabetes Hypertension Social History Smoking Status: Current every day smoker tobacco type: cigarettes packs per day: 1 and smokeless tobacco second hand exposure: Yes alcohol intake: never substance use type: denies use current occupational status: employed Travel in the last 8 weeks: None household members: spouse housing: house caffeine: Yes ROS Obtained: Yes All systems reviewed & no additional complaints except as documented Physical Exam General General appearance: alert Head Head exam: normocephalic Eye Eye exam: Present PERRL and EOMI; Absent scleral icterus ENT ENT exam: Present mucous membranes moist Neck Neck exam: Present trachea midline Respiratory Respiratory
[2023-04-01 02:05] VITALS: BP 154/78; PULSE 71; RESP 18; TEMP 36.9; O2SAT 98
== END 2023-04-01 02:17 | disposition home or self-care (01) ==
PROVIDERS: Emergency Provider Emergency Medicine; PCP Family Medicine
DX: K85.90 Acute pancreatitis without necrosis or infection, unspecified (principal); F17.210 Nicotine dependence, cigarettes, uncomplicated
CPT/HCPCS: 74177; 80053; 81001; 82150; 83690; 84145; 85025; 85651; 86140; 96361; 96374; 96375; 99285; J2405; Q9967

== ENCOUNTER → 2023-04-15 23:00 | Outpatient (CLI) | payer MEDICAID, SELFPAY ==
[2023-04-15 16:42] LABS: Alanine Aminotransferase 18 U/L (12-78); Albumin Level 3.8 g/dl (3.5-5.0); Albumin/Globulin Ratio 1.3 (1.1-1.8); Alkaline Phosphatase 64 U/L (38-126); Amylase 66 U/L (30-110); Anion Gap 17.1 mEq/L (5-15); Aspartate Amino Transferase 21 U/L (17-59); Basophils # 0.1 K/mm3 (0-0.2); Basophils % 0.8 % (0.1-2.0); Bilirubin,Total 0.3 mg/dl (0.2-1.3); Blood Urea Nitrogen 11 mg/dl (9-20); Calcium 8.6 mg/dl (8.4-10.2); Carbon Dioxide 23 mmol/L (22.0-30.0); Chloride 104 mmol/L (98-107); Eosinophils # 0.7 K/mm3 (0.0-0.4); Eosinophils % 6.7 % (0.1-12.0); Estimated Glomerular Filt Rate 69 ml/min (>60); GFR (African American) 84 ML/MIN (>60); Globulin 2.9 g/dL (1.3-3.2); Glucose 182 mg/dl (74-100); Hematocrit 42.9 % (42.0-52.0); Hemoglobin 13.6 g/dL (14.1-18.0); Lipase 90 U/L (23-300); Lymphocytes % 19.8 % (10-50); Mean Corpuscular HGB Conc 31.7 g/dL (31.8-35.4); Mean Corpuscular Hemoglobin 25.7 pg (27.0-31.2); Mean Corpuscular Volume 81.3 fl (80-94); Mean Platelet Volume 8.6 fl (7.4-10.4); Monocytes # 0.4 K/mm3 (0.1-1.0); Monocytes % 4.1 % (1.7-9.3); Neutrophils # 6.9 K/mm3 (1.8-7.8); Neutrophils % 68.6 % (37.0-80.0); Platelet Count 260 K/mm3 (142-424); Potassium 4.1 mmoL/L (3.5-5.1); Red Blood Count 5.28 M/mm3 (4.60-6.20); Red Cell Distribution Width 17.5 % (11.5-17.5); Sodium 140 mmol/L (136-145); Total Protein,Serum 6.7 g/dl (6.3-8.2); White Blood Count 10.1 K/mm3 (4.8-10.8)
== END ==
PROVIDERS: PCP Nurse Practitioner Family; Visit Provider Nurse Practitioner Family
DX: K85.90 Acute pancreatitis without necrosis or infection, unspecified (principal)
CPT/HCPCS: 80053; 82150; 83690; 85025

== ENCOUNTER → 2023-05-13 23:41 | Outpatient (CLI) | payer MEDICAID, SELFPAY ==
[2023-05-13 17:56] LABS: Anion Gap 10.6 mEq/L (5-15); Blood Urea Nitrogen 13 mg/dl (9-20); Carbon Dioxide 28 mmol/L (22.0-30.0); Chloride 108 mmol/L (98-107); Estimated Glomerular Filt Rate 50 ml/min (>60); GFR (African American) 60 ML/MIN (>60); Glucose 128 mg/dl (74-100); Potassium 4.6 mmoL/L (3.5-5.1); Sodium 142 mmol/L (136-145)
[2023-05-13 20:13] LABS: Hemoglobin A1C 8.8 % (4.0-6.0)
== END ==
PROVIDERS: PCP Family Medicine; Visit Provider Family Medicine
DX: E11.9 Type 2 diabetes mellitus without complications (principal); Z79.84 Long term (current) use of oral hypoglycemic drugs
CPT/HCPCS: 80048; 83036

== ENCOUNTER → 2023-06-09 12:45 | Outpatient (POV) | payer MEDICAID, SELFPAY ==
[2023-06-09 13:46] VITALS: BP 184/100; PULSE 85; RESP 18; O2SAT 95; BMI 33.3
--- NOTE | 2023-06-09 14:22 | EXP.PAIN.OV ---
HPI Data of Consult Patient: new to practice Consult date: 06/09/23 Requesting Physician: Leslie Low APRN Consult Narrative Reason for consult: Abdominal pain, chronic pancreatitis History of present illness: Mr. Oliver is a 33 year old male who presents today as a new patient. He is a referral from Dr. Daugherty's office. Today he rates his pain a 4 out of 10. Patient states his pain is all around his abdomen and describes it as a sharp shooting pain with pressure in times of pancreatitis flareups. Patient does state that he has chronic pain related to this that has been going on for over 2 years. Patient states that he is not a drinker but did have a bad history of fast food diet and that over the last couple of years he has made complete changes. He does state that he previously was over 300 pounds and he is now in the 200s but he continues to have chronic pain in his abdomen as well as his low back and left shoulder. Patient denies any previous injury or trauma. Patient states that he is scheduled to see a doctor at [facility] for his follow-up for his last episode. Patient does have a history of pancreatic stents placed. Patient has tried [id number] medications such as Tylenol and ibuprofen along with heat and ice with minimal relief. Patient is interested in any help we may be able to provide. He states that he has not been able to work due to the worsening pain symptoms. Patient does have a history of diabetes and high blood pressure. He is currently prescribed oxycodone 10 mg twice a day from his primary care doctor. His Paddy is [id number]. Its been reviewed and appropriate. CC: Leslie Low APRN [facility] Disclaimer: The information contained in this section may have been updated after the patient was seen, as this information can be updated by other users. 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, RN) Smoking Status: Current every day smoker tobacco type: cigarettes packs per day: 1 and smokeless tobacco second hand exposure: Yes alcohol intake: never substance use type: denies use current occupational status: employed Travel in the last 8 weeks: None household members: spouse housing: house caffeine: Yes Review of Systems Review of Systems Review of systems:: pertinent systems reviewed and negative unless documented below Review of systems (narrative): Review of Systems: General: No recent weight changes, no fever, no sleep disturbances Respiratory: No cough, no shortness of air, no recurring pulmonary infections Cardiovascular/peripheral vascular: No chest pain, no palpitations, no edema, no shortness of breath Gastrointestinal: No new onset incontinence, normal bowel movements reported Genitourinary: No new onset incontinence Musculoskeletal: Abdominal pain Psychiatric: [Normal mood/affect] Neurological: [Denies weakness in extremities], [denies balance issues] Meds Home Medications and Allergies Home Medications Medication Instructions Recorded Confirmed Type aspirin 81 mg tablet,delayed See Rx Instructions .Route 03/26/23 06/09/23 History release .COMPLEX Supplement cholecalciferol (vitamin D3) 50 See Rx Instructions .Route 03/26/23 06/09/23 History mcg (2,000 unit) tablet .COMPLEX Supplement loratadine 10 mg tablet See Rx Instructions .Route 03/26/23 06/09/23 History .COMPLEX Allergy symptoms atorvastatin 20 mg tablet 20 mg PO DAILY Cholesterol 04/01/23 06/09/23 History nifedipine 30 mg tablet,extended 30 mg PO DAILY BLOOD PRESSURE 04/01/23
== END ==
PROVIDERS: Visit Provider Nurse Practitioner Family
DX: M54.50 Low back pain, unspecified (principal); G89.29 Other chronic pain; R10.12 Left upper quadrant pain; M25.512 Pain in left shoulder; K86.1 Other chronic pancreatitis
CPT/HCPCS: 99202; G0463

== ENCOUNTER 2023-06-18 20:28 | Emergency (ER) | payer MEDICAID, SELFPAY ==
--- NOTE | 2023-06-18 20:50 | CT_ITS ---
PROCEDURE INFORMATION: Exam: CT Abdomen And Pelvis With Contrast Exam date and time: 06/18/2023 9:12 PM Age: 33 years old Clinical indication: Nausea and vomiting; Abdominal pain; Flank; Left; Additional info: N/v left flank pain TECHNIQUE: Imaging protocol: Computed tomography of the abdomen and pelvis with contrast. Radiation optimization: All CT scans at this facility use at least one of these dose optimization techniques: automated exposure control; mA and/or kV adjustment per patient size (includes targeted exams where dose is matched to clinical indication); or iterative reconstruction. Contrast material: ISOVUE; Contrast volume: 75 ml; Contrast route: IV; REPORTING DATA: Count of CT and Cardiac NM exams in prior 12 months: This patient has received 4 known CTs and 0 known cardiac nuclear medicine studies in the 12 months prior to the current study. COMPARISON: CT ABDOMEN PELVIS W CON 04/01/2023 12:44 AM FINDINGS: Liver: Normal. No mass. Gallbladder and bile ducts: Normal. No calcified stones. No ductal dilation. Pancreas: Tortuous ductal dilatation of the pancreatic tail measuring up to 5.5 mm in diameter. No ductal dilatation of the pancreatic head. Surrounding edema inflammatory fluid of the pancreatic tail that extends posterior surface of the spleen. Spleen: Splenomegaly measures up to 18.1 cm. Adrenal glands: Normal. No mass. Kidneys and ureters: Atrophied left kidney unchanged from prior exam. No hydronephrosis. Stomach and bowel: Unremarkable. No obstruction. No mucosal thickening. Appendix: No evidence of appendicitis. Intraperitoneal space: Unremarkable. No free air. No significant fluid collection. Vasculature: Likely thrombosed splenic vein with multiple prominent gastrosplenic varices/collaterals. Lymph nodes: Multiple retroperitoneal nodes likely reactive. Urinary bladder: Unremarkable as visualized. Reproductive: Unremarkable as visualized. Bones/joints: Unremarkable. No acute fracture. Soft tissues: Normal. IMPRESSION: 1. Tortuous ductal dilatation of the pancreatic tail measuring up to 5.5 mm in diameter. No ductal dilatation of the pancreatic head. Surrounding edema inflammatory fluid of the pancreatic tail that extends posterior surface of the spleen. Multiple retroperitoneal nodes likely reactive. Findings compatible with acute on chronic pancreatitis of the pancreatic tail with ductal dilatation which could be related to stenosis from prior inflammation. Consider further evaluation with MRCP. 2. 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
[2023-06-18 20:52] VITALS: BP 147/89; PULSE 74; RESP 18; TEMP 36.8; O2SAT 99; BMI 32.8
--- NOTE | 2023-06-18 20:52 | HMH.EDGENADL ---
Discharge Plan Disposition Patient Disposition: Home, Self-Care Condition: Fair Prescriptions Prescriptions: New oxycodone 5 mg tablet 5 mg PO Q6H PRN (Reason: pain) 3 Days Qty: 12 0RF brompheniramine-phenylephrine 2-5 mg/5 mL liquid 10 ml PO Q6H PRN (Reason: allergy symptoms) 5 Days Qty: 473 0RF ondansetron HCl 4 mg tablet 4 mg PO Q8H PRN (Reason: nausea and vomiting) 5 Days Qty: 30 0RF No Action atorvastatin 20 mg tablet 20 mg PO DAILY nifedipine 30 mg tablet extended release 24hr 30 mg PO DAILY dicyclomine 10 mg capsule 10 mg PO QID pantoprazole 40 mg tablet,delayed release (DR/EC) 40 mg PO DAILY oxycodone 10 mg tablet 10 mg PO Q6H PRN (Reason: pain) Qty: 30 0RF promethazine 25 mg tablet 25 mg PO Q6H PRN (Reason: nausea and vomiting) Qty: 30 1RF ondansetron HCl 4 mg tablet 4 mg PO Q6H PRN (Reason: nausea and vomiting) Qty: 20 0RF glipizide 5 mg tablet extended release 24hr 5 mg PO BID Qty: 60 2RF aspirin 81 mg tablet,delayed release (DR/EC) See Rx Instructions .ROUTE .COMPLEX Rx Instructions: TAKE ONE TABLET BY MOUTH EVERY DAY loratadine 10 mg tablet See Rx Instructions .ROUTE .COMPLEX Rx Instructions: TAKE ONE TABLET BY MOUTH EVERY DAY FOR ALLERGY SYMPTOMS cholecalciferol (vitamin D3) 50 mcg (2,000 unit) tablet See Rx Instructions .ROUTE .COMPLEX Rx Instructions: TAKE ONE TABLET BY MOUTH EVERY DAY albuterol sulfate [Ventolin HFA] 90 mcg/actuation HFA aerosol inhaler See Rx Instructions .ROUTE .COMPLEX Rx Instructions: INHALE TWO PUFFS BY MOUTH EVERY 4 TO 6 HOURS NEEDED FOR SHORTNESS OF BREATH OR wheezing Januvia 100 mg tablet 100 mg PO DAILY fenofibrate 120 mg tablet 120 mg PO DAILY Referrals Follow up/Referrals: Checo Daugherty MD [Primary Care Provider] - See instructions Activity Restrictions/Add. Instructions Additional Instructions/Restrictions: Please take Zofran as needed for nausea and vomiting. Please take Tylenol and ibuprofen as needed for pain. Please take oxycodone as needed for severe pain. Please take Bromfed as needed for cough and congestion. Recommend returning to the ER or seeing your GI doctor if your symptoms worsen or do not improve. Please follow-up with your primary care provider. 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 Reports no significant nausea or vomiting. Reports pain is severe, worsening. Denies any chest pain shortness of breath fever chills or other systemic symptoms. Denies any urinary symptoms. Also reports has been dealing with nasal congestion and drainage for the last week or so. Related Data Home Medications Medication Instructions Recorded Confirmed aspirin 81 mg tablet,delayed See Rx Instructions .Route 03/26/23 06/09/23 release .COMPLEX Supplement cholecalciferol (vitamin D3) 50 See Rx Instructions .Route 03/26/23 06/09/23 mcg (2,000 unit) tablet .COMPLEX Supplement loratadine 10 mg tablet See Rx Instructions .Route 03/26/23 06/09/23 .COMPLEX Allergy symptoms atorvastatin 20 mg tablet 20 mg PO DAILY Cholesterol 04/01/23 06/09/23 nifedipine 30 mg tablet,extended 30 mg PO DAILY BLOOD PRESSURE 04/01/23 06/09/23 release 24 hr dicyclomine 10 mg capsule 10 mg PO QID BOWELS 05/13/23 06/09/23 pantoprazole 40 mg
[2023-06-18 21:00] VITALS: BP 151/112; PULSE 76; RESP 18; O2SAT 98
[2023-06-18 21:21] LABS: Basophils # 0.1 K/mm3 (0-0.2); Basophils % 0.6 % (0.1-2.0); Eosinophils # 0.4 K/mm3 (0.0-0.4); Eosinophils % 5.3 % (0.1-12.0); Hematocrit 38.1 % (42.0-52.0); Hemoglobin 12.3 g/dL (14.1-18.0); Lymphocytes # 2.1 K/mm3 (0.7-4.5); Mean Corpuscular HGB Conc 32.4 g/dL (31.8-35.4); Mean Corpuscular Hemoglobin 25.9 pg (27.0-31.2); Mean Platelet Volume 7.9 fl (7.4-10.4); Monocytes # 0.3 K/mm3 (0.1-1.0); Monocytes % 3.4 % (1.7-9.3); Neutrophils # 5.3 K/mm3 (1.8-7.8); Neutrophils % 64.7 % (37.0-80.0); Platelet Count 174 K/mm3 (142-424); Red Blood Count 4.76 M/mm3 (4.60-6.20); Red Cell Distribution Width 15.7 % (11.5-17.5); White Blood Count 8.2 K/mm3 (4.8-10.8)
[2023-06-18 21:30] VITALS: BP 189/108; PULSE 78; RESP 20; O2SAT 97
[2023-06-18 21:41] LABS: Chloride 107 mmol/L (98-107); Potassium 3.7 mmoL/L (3.5-5.1); Sodium 140 mmol/L (136-145)
[2023-06-18 21:43] LABS: Alanine Aminotransferase 17 U/L (12-78); Aspartate Amino Transferase 19 U/L (17-59); Blood Urea Nitrogen 9 mg/dl (9-20); Creatinine Clearance Estimated 106 mL/min (50-200); Estimated Glomerular Filt Rate 58 ml/min (>60); GFR (African American) 70 ML/MIN (>60)
[2023-06-18 21:44] LABS: Albumin Level 3.4 g/dl (3.5-5.0); Albumin/Globulin Ratio 1.1 (1.1-1.8); Alkaline Phosphatase 66 U/L (38-126); Anion Gap 10.7 mEq/L (5-15); Bilirubin,Total 0.3 mg/dl (0.2-1.3); Calcium 9.2 mg/dl (8.4-10.2); Carbon Dioxide 26 mmol/L (22.0-30.0); Globulin 3.2 g/dL (1.3-3.2); Glucose 147 mg/dl (74-100); Lipase 100 U/L (23-300); Total Protein,Serum 6.6 g/dl (6.3-8.2)
--- NOTE | 2023-06-18 22:34 | PC.NURSE ---
pt pain assessed is now a 4/10
[2023-06-18 22:36] VITALS: BP 160/96; PULSE 89; RESP 18
[2023-06-18 23:13] VITALS: BP 162/94; PULSE 74; RESP 18; TEMP 36.8
[2023-06-18 23:17] VITALS: BP 162/94; PULSE 68; RESP 18; TEMP 36.6; O2SAT 99
== END 2023-06-18 23:19 | disposition home or self-care (01) ==
PROVIDERS: Emergency Provider Emergency Medicine; PCP Family Medicine
DX: K85.90 Acute pancreatitis without necrosis or infection, unspecified (principal); I82.890 Acute embolism and thrombosis of other specified veins; J06.9 Acute upper respiratory infection, unspecified; J45.909 Unspecified asthma, uncomplicated; E11.9 Type 2 diabetes mellitus without complications; I10 Essential (primary) hypertension
CPT/HCPCS: 74177; 80053; 83690; 85025; 96361; 96374; 96375; 99285; J2405; Q9967

== ENCOUNTER 2023-07-09 07:24 | Emergency (ER) | payer MEDICAID, SELFPAY ==
[2023-07-09] VITALS (8 sets, daily range): BP systolic 133–162; BP diastolic 78–107; PULSE 60–78; RESP 17–18; TEMP 36.5–36.6; O2SAT 95–98; BMI 32.5
--- NOTE | 2023-07-09 07:33 | HMH.EDGENADL ---
Discharge Plan Disposition Patient Disposition: Home, Self-Care Condition: Good Prescriptions Prescriptions: New oxycodone 5 mg tablet 5 mg PO Q8H PRN (Reason: pain) Qty: 12 0RF ondansetron HCl 4 mg tablet 4 mg PO Q8H PRN (Reason: nausea and vomiting) 4 Days Qty: 12 0RF No Action atorvastatin 20 mg tablet 20 mg PO DAILY dicyclomine 10 mg capsule 10 mg PO QID pantoprazole 40 mg tablet,delayed release (DR/EC) 40 mg PO DAILY promethazine 25 mg tablet 25 mg PO Q6H PRN (Reason: nausea and vomiting) Qty: 30 1RF ondansetron HCl 4 mg tablet 4 mg PO Q6H PRN (Reason: nausea and vomiting) Qty: 20 0RF glipizide 5 mg tablet extended release 24hr 5 mg PO BID Qty: 60 2RF sulfamethoxazole-trimethoprim 800-160 mg tablet 1 tab PO BID Qty: 20 0RF nifedipine 30 mg tablet extended release 24hr 30 mg PO DAILY Qty: 30 2RF pseudoephedrine HCl 120 mg tablet extended release 120 mg PO Q12H Qty: 20 1RF aspirin 81 mg tablet,delayed release (DR/EC) See Rx Instructions .ROUTE .COMPLEX Qty: 30 5RF Dose Instruction: TAKE ONE TABLET BY MOUTH EVERY DAY Rx Instructions: TAKE ONE TABLET BY MOUTH EVERY DAY loratadine 10 mg tablet See Rx Instructions .ROUTE .COMPLEX Rx Instructions: TAKE ONE TABLET BY MOUTH EVERY DAY FOR ALLERGY SYMPTOMS cholecalciferol (vitamin D3) 50 mcg (2,000 unit) tablet See Rx Instructions .ROUTE .COMPLEX Rx Instructions: TAKE ONE TABLET BY MOUTH EVERY DAY albuterol sulfate [Ventolin HFA] 90 mcg/actuation HFA aerosol inhaler See Rx Instructions .ROUTE .COMPLEX Rx Instructions: INHALE TWO PUFFS BY MOUTH EVERY 4 TO 6 HOURS NEEDED FOR SHORTNESS OF BREATH OR wheezing Januvia 100 mg tablet 100 mg PO DAILY fenofibrate 120 mg tablet 120 mg PO DAILY ondansetron HCl 4 mg tablet 4 mg PO Q8H PRN (Reason: nausea and vomiting) 5 Days Qty: 30 0RF Referrals Follow up/Referrals: Provider,Referral, MD [Primary Care Provider] - See instructions Activity Restrictions/Add. Instructions Additional Instructions/Restrictions: You were evaluated in the emergency department today. Please warp picker your prescriptions at the pharmacy and take them as needed for symptoms. You may also take Tylenol and ibuprofen in addition to these. Make sure that you are staying hydrated. Eat a bland diet until you are symptom-free. Follow-up with your primary care provider over the next 3 days. I will also recommend keeping close follow-up with gastroenterology as scheduled. Return to the emergency department for any new or worsening symptoms, such as significant worsening of pain, inability to tolerate oral intake, or other concerns. Clinical Impressions Clinical Impression: Pancreatitis, recurrent Stand Alone Forms Stand Alone Forms: Work/School Release Instructions Patient Instructions: DI for Pancreatitis, DI for Acute Abdominal Pain Discharge ED Provider: Leslie Aranda General Adult HPI General Chief complaint: Abdominal Pain Stated complaint: Lt side pain, nausea Time Seen by Provider: 07/09/23 07:31 History of Present Illness HPI narrative: This patient is a 33-year-old male with a history of pancreatitis, splenic vein thrombosis, and LILIA who reports that he has issues with his left kidney presenting to the emergency department for evaluation with concern for left flank pain. He states that it started approximately 24 hours ago and radiates around to his abdomen. It is severe and constant. Nothing seems to make it better or worse. It is not changed with any movement or positioning. He denies any notable injuries. He denies any fevers, chills, changes in bowel movements, rashes, or swelling. He does note that he has had nausea. He states that he was evaluated at [facility] yesterday and labs were obtained, but he states they did not do any imaging. He states that given a muscle relaxer, which d
[2023-07-09 07:41] LABS: Microscopic, Urine URINE MICROSCOPIC (MICROSCOPIC)
[2023-07-09 07:42] LABS: Appearance,Urine CLEAR (Clear); Bilirubin,Urine Negative (Negative); Blood, Urine TRACE-I (Negative); Color,Urine YELLOW (Yellow); Glucose,Urine (UA) Negative (Negative); Ketones,Urine Negative (Negative); Leukocyte Esterase,Urine Negative (Negative); Nitrate,Urine Negative (Negative); Protein,Urine 3+ (Negative); Specific Gravity, Urine >= 1.030 (1.005-1.030); Urobilinogen,Urine 0.2 EU/dl (0.2)
[2023-07-09 07:50] LABS: Basophils # 0.1 K/mm3 (0-0.2); Basophils % 0.7 % (0.1-2.0); Eosinophils # 0.7 K/mm3 (0.0-0.4); Eosinophils % 7.2 % (0.1-12.0); Hematocrit 42.1 % (42.0-52.0); Hemoglobin 13.8 g/dL (14.1-18.0); Lymphocytes # 2.1 K/mm3 (0.7-4.5); Lymphocytes % 20.2 % (10-50); Mean Corpuscular HGB Conc 32.6 g/dL (31.8-35.4); Mean Corpuscular Hemoglobin 26.5 pg (27.0-31.2); Mean Corpuscular Volume 81.3 fl (80-94); Mean Platelet Volume 7.4 fl (7.4-10.4); Monocytes # 0.4 K/mm3 (0.1-1.0); Monocytes % 3.7 % (1.7-9.3); Neutrophils # 7.1 K/mm3 (1.8-7.8); Neutrophils % 68.3 % (37.0-80.0); Platelet Count 160 K/mm3 (142-424); Red Blood Count 5.18 M/mm3 (4.60-6.20); Red Cell Distribution Width 16.7 % (11.5-17.5); White Blood Count 10.3 K/mm3 (4.8-10.8)
[2023-07-09 07:55] LABS: Bacteria,Urine Trace /lpf; RBC,Urine Occasional #/hpf (0-3); Squamous Epithelial Cell,Urine Occasional #/hpf (0-5)
[2023-07-09 07:57] LABS: Alanine Aminotransferase 16 U/L (12-78); Albumin/Globulin Ratio 1.3 (1.1-1.8); Alkaline Phosphatase 57 U/L (38-126); Anion Gap 11.6 mEq/L (5-15); Aspartate Amino Transferase 20 U/L (17-59); Bilirubin,Total 0.2 mg/dl (0.2-1.3); Blood Urea Nitrogen 19 mg/dl (9-20); Calcium 9.2 mg/dl (8.4-10.2); Carbon Dioxide 23 mmol/L (22.0-30.0); Chloride 111 mmol/L (98-107); Creatinine Clearance Estimated 82 mL/min (50-200); Estimated Glomerular Filt Rate 43 ml/min (>60); GFR (African American) 53 ML/MIN (>60); Glucose 132 mg/dl (74-100); Lipase 126 U/L (23-300); Potassium 4.6 mmoL/L (3.5-5.1); Sodium 141 mmol/L (136-145)
--- NOTE | 2023-07-09 07:59 | CT_ITS ---
PROCEDURE INFORMATION: Exam: CT Abdomen And Pelvis Without Contrast Exam date and time: 07/09/2023 8:13 AM Age: 33 years old Clinical indication: Abdominal pain; Flank; Left; Additional info: L flank pain TECHNIQUE: Imaging protocol: Computed tomography of the abdomen and pelvis without contrast. Radiation optimization: All CT scans at this facility use at least one of these dose optimization techniques: automated exposure control; mA and/or kV adjustment per patient size (includes targeted exams where dose is matched to clinical indication); or iterative reconstruction. REPORTING DATA: Count of CT and Cardiac NM exams in prior 12 months: This patient has received 5 known CTs and 0 known cardiac nuclear medicine studies in the 12 months prior to the current study. COMPARISON: CT ABDOMEN PELVIS W CON 06/18/2023 9:12 PM FINDINGS: Lungs: Visualized portions of the lung bases are normal. Liver: Normal. No mass. Gallbladder and bile ducts: Normal. No calcified stones. No ductal dilation. Pancreas: Inflammatory changes within the anterior pararenal space most conspicuous about the tail of the pancreas. Pancreatitis. Spleen: Splenomegaly. Numerous venous varicosities including short gastric varicosities. Favor splenic vein thrombosis. Adrenal glands: Normal. No mass. Kidneys and ureters: Small scarred atretic left kidney. Stomach and bowel: Unremarkable. No obstruction. No mucosal thickening. Appendix: Appendix normal. Intraperitoneal space: Unremarkable. No free air. No significant fluid collection. Vasculature: See Spleen finding. Lymph nodes: Unremarkable. No enlarged lymph nodes. Urinary bladder: Unremarkable as visualized. Reproductive: Unremarkable as visualized. Bones/joints: Osseous structures are unremarkable. No fracture. Soft tissues: Unremarkable. Other findings: trace/small amount of fluid within the pelvis. IMPRESSION: 1. Inflammatory changes within the anterior pararenal space most conspicuous about the tail of the pancreas. Pancreatitis. Previously described 2. Splenomegaly. Numerous venous varicosities including short gastric varicosities. Favor splenic vein thrombosis. 3. Trace/small amount of fluid within the pelvis. 4. Appendix normal.
--- NOTE | 2023-07-09 09:20 | PC.NURSE ---
pt given ice cubes, okayed
--- NOTE | 2023-07-09 09:45 | PC.NURSE ---
ROUNDED ON PT, REPORTS PAIN RELIEVED AT THIS TIME FROM MEDICATION GIVEN. NO NEEDS AT THIS TIME. CALL LIGHT WITHIN REACH
--- NOTE | 2023-07-09 09:50 | PC.NURSE ---
DR ROSS AT BEDSIDE TO REEVALUATE PT
--- NOTE | 2023-07-09 10:22 | PC.NURSE ---
ROUNDED ON PT, TOLERATING PO INTAKE, NO N/V. PAIN WELL CONTROLLED. NO NEEDS AT THIS TIME. CALL LIGHT WITHIN REACH
== END 2023-07-09 10:50 | disposition home or self-care (01) ==
PROVIDERS: Emergency Provider Emergency Medicine
DX: K86.1 Other chronic pancreatitis (principal); J45.909 Unspecified asthma, uncomplicated; E11.9 Type 2 diabetes mellitus without complications; I10 Essential (primary) hypertension; F17.210 Nicotine dependence, cigarettes, uncomplicated; R10.9 Unspecified abdominal pain
CPT/HCPCS: 74176; 80053; 81001; 83690; 85025; 96361; 96374; 96375; 96376; 99285; J0131; J2405

== ENCOUNTER 2023-07-26 20:10 | Emergency (ER) | payer MEDICAID, SELFPAY ==
[2023-07-26 20:12] VITALS: BP 167/98; PULSE 89; RESP 18; TEMP 36.8; O2SAT 98; BMI 31.8
--- NOTE | 2023-07-26 20:51 | CT_ITS ---
PROCEDURE INFORMATION: Exam: CT Abdomen And Pelvis With Contrast Exam date and time: 07/26/2023 9:43 PM Age: 33 years old Clinical indication: Abdominal pain; Additional info: Concern for pancreatitis TECHNIQUE: Imaging protocol: Computed tomography of the abdomen and pelvis with contrast. Radiation optimization: All CT scans at this facility use at least one of these dose optimization techniques: automated exposure control; mA and/or kV adjustment per patient size (includes targeted exams where dose is matched to clinical indication); or iterative reconstruction. Contrast material: ISOVUE; Contrast volume: 75 ml; Contrast route: IV; REPORTING DATA: Count of CT and Cardiac NM exams in prior 12 months: This patient has received 6 known CTs and 0 known cardiac nuclear medicine studies in the 12 months prior to the current study. COMPARISON: CT ABDOMEN PELVIS WO CON 07/09/2023 8:13 AM FINDINGS: Liver: Heterogeneous perfusion of the liver, nonspecific in the setting of pancreatitis. Gallbladder and bile ducts: Normal. No calcified stones. No ductal dilation. Pancreas: There is moderate peripancreatic inflammatory change with small volume peripancreatic fluid compatible with acute interstitial pancreatitis. Findings appear similar to minimally progressed from the prior study. Spleen: There are multiple calcifications in the spleen most likely reflects small granulomas. The spleen is enlarged. Adrenal glands: Normal. No mass. Kidneys and ureters: Normal. No hydronephrosis. Stomach and bowel: Unremarkable. No obstruction. No mucosal thickening. Appendix: The appendix is normal. Intraperitoneal space: Unremarkable. No free air. No significant fluid collection. Vasculature: Unremarkable. No abdominal aortic aneurysm. Lymph nodes: Unremarkable. No enlarged lymph nodes. Urinary bladder: There is moderate distention of the urinary bladder. Reproductive: Unremarkable as visualized. Bones/joints: Unremarkable. No acute fracture. Soft tissues: Unremarkable. IMPRESSION: 1. Findings of acute pancreatitis, similar to minimally progressed from the prior study. No loculated peripancreatic fluid collection. 2. Splenomegaly.
[2023-07-26 21:09] LABS: Basophils # 0.1 K/mm3 (0-0.2); Eosinophils # 0.7 K/mm3 (0.0-0.4); Eosinophils % 7.1 % (0.1-12.0); Hematocrit 42.4 % (42.0-52.0); Hemoglobin 13.6 g/dL (14.1-18.0); Lymphocytes # 2.5 K/mm3 (0.7-4.5); Lymphocytes % 25.9 % (10-50); Mean Corpuscular HGB Conc 32.2 g/dL (31.8-35.4); Mean Corpuscular Hemoglobin 26.2 pg (27.0-31.2); Mean Corpuscular Volume 81.4 fl (80-94); Mean Platelet Volume 7.9 fl (7.4-10.4); Monocytes # 0.4 K/mm3 (0.1-1.0); Monocytes % 3.7 % (1.7-9.3); Neutrophils # 6.1 K/mm3 (1.8-7.8); Neutrophils % 62.3 % (37.0-80.0); Platelet Count 250 K/mm3 (142-424); Red Blood Count 5.21 M/mm3 (4.60-6.20); Red Cell Distribution Width 17.2 % (11.5-17.5); White Blood Count 9.8 K/mm3 (4.8-10.8)
[2023-07-26 21:11] VITALS: BP 147/75; PULSE 82; RESP 18; O2SAT 99
[2023-07-26 21:11] LABS: Chloride 110 mmol/L (98-107); Potassium 4.5 mmoL/L (3.5-5.1); Sodium 143 mmol/L (136-145)
[2023-07-26 21:13] LABS: Alanine Aminotransferase 18 U/L (12-78); Alkaline Phosphatase 67 U/L (38-126); Anion Gap 13.5 mEq/L (5-15); Aspartate Amino Transferase 24 U/L (17-59); Bilirubin,Total 0.3 mg/dl (0.2-1.3); Blood Urea Nitrogen 21 mg/dl (9-20); Carbon Dioxide 24 mmol/L (22.0-30.0); Creatinine Clearance Estimated 82 mL/min (50-200); Estimated Glomerular Filt Rate 43 ml/min (>60); GFR (African American) 53 ML/MIN (>60)
[2023-07-26 21:14] LABS: Albumin/Globulin Ratio 1.2 (1.1-1.8); Calcium 8.8 mg/dl (8.4-10.2); Globulin 3.4 g/dL (1.3-3.2); Glucose 110 mg/dl (74-100); Lipase 205 U/L (23-300); Total Protein,Serum 7.4 g/dl (6.3-8.2)
--- NOTE | 2023-07-26 23:19 | PC.NURSE ---
giselle mccollum @ bedside and explained to patient md would be in to talk with him as soon as he's finished with other patient
[2023-07-27 00:11] VITALS: BP 138/78; PULSE 72; RESP 18; TEMP 36.7; O2SAT 100
--- NOTE | 2023-07-27 19:28 | [facility].EDGENADL ---
Discharge Plan Disposition Patient Disposition: Home, Self-Care Condition: Good Prescriptions Prescriptions: New morphine 30 mg capsule, ER multiphase 24 hr 30 mg PO DAILY Qty: 7 0RF ondansetron 4 mg tablet,disintegrating 4 mg PO DAILY PRN (Reason: nausea and vomiting) 4 Days Qty: 14 0RF Discontinued ondansetron HCl 4 mg tablet 4 mg PO Q6H PRN (Reason: nausea and vomiting) Qty: 20 0RF ondansetron HCl 4 mg tablet 4 mg PO Q8H PRN (Reason: nausea and vomiting) 5 Days Qty: 30 0RF ondansetron HCl 4 mg tablet 4 mg PO Q8H PRN (Reason: nausea and vomiting) 4 Days Qty: 12 0RF No Action atorvastatin 20 mg tablet 20 mg PO DAILY dicyclomine 10 mg capsule 10 mg PO QID pantoprazole 40 mg tablet,delayed release (DR/EC) 40 mg PO DAILY promethazine 25 mg tablet 25 mg PO Q6H PRN (Reason: nausea and vomiting) Qty: 30 1RF glipizide 5 mg tablet extended release 24hr 5 mg PO BID Qty: 60 2RF sulfamethoxazole-trimethoprim 800-160 mg tablet 1 tab PO BID Qty: 20 0RF nifedipine 30 mg tablet extended release 24hr 30 mg PO DAILY Qty: 30 2RF pseudoephedrine HCl 120 mg tablet extended release 120 mg PO Q12H Qty: 20 1RF aspirin 81 mg tablet,delayed release (DR/EC) See Rx Instructions .ROUTE .COMPLEX Qty: 30 5RF Dose Instruction: TAKE ONE TABLET BY MOUTH EVERY DAY Rx Instructions: TAKE ONE TABLET BY MOUTH EVERY DAY loratadine 10 mg tablet See Rx Instructions .ROUTE .COMPLEX Rx Instructions: TAKE ONE TABLET BY MOUTH EVERY DAY FOR ALLERGY SYMPTOMS cholecalciferol (vitamin D3) 50 mcg (2,000 unit) tablet See Rx Instructions .ROUTE .COMPLEX Rx Instructions: TAKE ONE TABLET BY MOUTH EVERY DAY albuterol sulfate [Ventolin HFA] 90 mcg/actuation HFA aerosol inhaler See Rx Instructions .ROUTE .COMPLEX Rx Instructions: INHALE TWO PUFFS BY MOUTH EVERY 4 TO 6 HOURS NEEDED FOR SHORTNESS OF BREATH OR wheezing Januvia 100 mg tablet 100 mg PO DAILY fenofibrate 120 mg tablet 120 mg PO DAILY oxycodone 5 mg tablet 5 mg PO Q8H PRN (Reason: pain) Qty: 12 0RF Referrals Follow up/Referrals: Provider,Referral, MD [Primary Care Provider] - See instructions Activity Restrictions/Add. Instructions Additional Instructions/Restrictions: Please return to the emergency department if you experience any new or worsening symptoms. Clinical Impressions Clinical Impression: Acute pancreatitis Discharge ED Provider: Shun Brasher Adult HPI General Chief complaint: PAIN Stated complaint: PAIN LEFT SIDE Time Seen by Provider: 07/26/23 20:15 Mode of Arrival: Ambulatory Source of Information: Patient Limitations: No Limitations Description of Symptoms (Recalled from ER Triage Doc. by RN): patient reports left sided pain that radiates to left flank. Patient reports pain started 30 minutes prior to arrival. 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 History of Present Illness HPI narrative: Patient presents for evaluation of severe epigastric pain in the absence of fevers or chills, but with associated nausea and vomiting, gradual in onset starting several days ago, constant, stable in course, with associated decreased p.o. intake, no urinary symptoms, symptoms are consistent with patient's prior history of pancreatitis, no chest pain or palpitations, no injury, no sick contacts or recent travel no known exacerbating or alleviating factors Related Data Home Medications Medication Instructions Recorded Confirmed cholecalciferol (vitamin D3) 50 See Rx Instructions .Route 03/26/23 06/25/23 mcg (2,000 unit) tablet .COMPLEX Supplement loratadine 10 mg tablet See Rx Instructions .Route 03/26/23 06/25/23 .COMPLEX Allergy symptoms atorvastatin 20 mg tablet 20 mg PO DAILY Cholesterol 04/01/23 06/25/23 dicyclomine 10 mg capsule 10 mg PO QID BOWELS 05/13/23 06/25/23 pantoprazole 40 m
== END 2023-07-27 00:13 | disposition home or self-care (01) ==
PROVIDERS: Emergency Provider Emergency Medicine
DX: K85.90 Acute pancreatitis without necrosis or infection, unspecified (principal); J45.909 Unspecified asthma, uncomplicated; E11.9 Type 2 diabetes mellitus without complications; I10 Essential (primary) hypertension; F17.210 Nicotine dependence, cigarettes, uncomplicated
CPT/HCPCS: 74177; 80053; 83690; 85025; 96361; 96372; 96374; 96376; 99285; Q9967